=== PATIENT | female | born 1955 | race Caucasian/White ===

== ENCOUNTER → 2016-07-11 | Outpatient (CLI) | payer MEDICAID ==
[2016-03-13 13:01] VITALS: BP 115/64
--- NOTE | 2016-07-11 16:37 | RAD ---
HISTORY: Congestion Study: Two view chest Comparison: 03/13/2016 Findings: Exam is limited due to patient immobility. Stable right-sided port terminating in the SVC. There are chronic sternotomy changes present. Lung volumes are reduced without definite airspace disease, pne umothorax or pleural effusion. Stable mildly enlarged cardiac silhouette. The soft tissues are unre markable. IMPRESSION: 1. No acute cardiopulmonary abnormality. Reported By:
== END ==
LOC: RAD 15:14
PROVIDERS: ATTEND Obstetrics & Gynecology Obstetrics
DX: R09.89 Other specified symptoms and signs involving the circulatory and respiratory systems (principal)
CPT/HCPCS: 71020

== ENCOUNTER → 2016-12-25 | Outpatient (CLI) | payer MEDICAID ==
[2016-03-13 13:01] VITALS: BP 115/64
[2016-12-25 17:01] LABS: BILIRUBIN,URINE NEGATIVE (NEGATIVE); BLOOD/HEMOGLOBIN,URINE 4+ (NEGATIVE); GLUCOSE, URINE 2+ (NEGATIVE); KETONES,URINE NEGATIVE (NEGATIVE); LEUKOCYTE ESTERASE ,URINE 2+ (NEGATIVE); NITRITES,URINE POSITIVE (NEGATIVE); PH,URINE 6.5 (5.0 - 8.0); PROTEIN,URINE 1+ (NEGATIVE); UROBILINOGEN,URINE NORMAL (NORMAL)
[2016-12-25 17:10] LABS: APPEARANCE,URINE CLOUDY (CLEAR); BACTERIA,URINE 3+ /HPF (NEGATIVE); COLOR,URINE PALE YELLOW (YELLOW); SQUAMOUS EPITHELIAL CELL,UR RARE /HPF (NEGATIVE)
--- NOTE | 2016-12-26 15:11 | VAS ---
Ultrasound right lower extremity arterial Doppler Indication: Recurrent wound on the right leg. Technique: Dynamic grayscale, color and spectral Doppler imaging through the right lower extremity ar teries. Findings: Measurements listed below are in cm/sec. Waveforms are triphasic unless otherwise noted. SPRING CLIPPER: 76 SFA prox: 150 SFA mid: 155 SFA distal: 119 Popliteal prox: 68 Popliteal distal: 84 MEDICAL NUMERICAL CONTROL OPERATOR prox: 73 MEDICAL NUMERICAL CONTROL OPERATOR mid: 115 MEDICAL NUMERICAL CONTROL OPERATOR distal: 83 biphasic EMERY prox: 107 EMERY mid: 61 EMERY dist: 60 biphasic Vascular calcifications noted. Impression: 1. No occlusion, dissection or aneurysm. 2. Vascular plaque with mildly biphasic waveforms in the distal the anterior and posterior tibial art eries at the level of the ankle. 3. No high-grade visual stenosis. Consider angiography followup as needed. Reported By:
== END | disposition home or self-care (01) ==
LOC: RAD 13:54
PROVIDERS: ATTEND Internal Medicine
DX: I10 Essential (primary) hypertension (principal); S81.801A Unspecified open wound, right lower leg, initial encounter; X58.XXXA Exposure to other specified factors, initial encounter; B96.29 Other Escherichia coli [E. coli] as the cause of diseases classified elsewhere
CPT/HCPCS: 81001; 87086; 87088; 87186; 93925

== ENCOUNTER 2017-02-03 14:02 | Observation (INO) | payer MEDICAID ==
[2017-02-03] MEDS ORDERED: NS 1000 ML 1,000 ML IV SCH (16:00)
[2017-02-03 16:47] VITALS: BMI 32.4
[2017-02-03] MEDS: PROTONIX INJ 40 MG VIAL IVP NR ×2 (16:59→17:03)
[2017-02-03 17:08] LABS: BASOPHILS % (AUTO) 0.5 % (0.2-1.0); EOSINOPHILS # (AUTO) 0.2 x10^3/uL (0.0-0.2); EOSINOPHILS % (AUTO) 3.7 % (0.9-2.9); HEMOGLOBIN 10.2 g/dL (12.0-16.0); LYMPHOCYTES # (AUTO) 1.9 X10^3/uL (1.3-2.9); LYMPHOCYTES % (AUTO) 33.9 % (21.0-51.0); MEAN CORPUSCULAR HEMOGLOBIN 29.3 pg (27.0-34.0); MEAN CORPUSCULAR HGB CONC 33.8 g/dL (33.0-35.0); MEAN CORPUSCULAR VOLUME 86.7 fL (80.0-100.0); MONOCYTES # (AUTO) 0.3 x10^3/uL (0.3-0.8); MONOCYTES % (AUTO) 5.6 % (0.0-13.0); NEUTROPHILS # (AUTO) 3.1 x10^3/uL (2.2-4.8); NEUTROPHILS % (AUTO) 56.3 % (42.0-75.0); PLATELET COUNT 106 X10^3/uL (150.0-450.0); RED BLOOD COUNT 3.46 X10^6/uL (3.5-5.4); RED CELL DISTRIBUTION WIDTH 18.2 % (11.6-16.5); WHITE BLOOD COUNT 5.5 X10^3/uL (3.6-10.0)
[2017-02-03 17:27] LABS: BLOOD UREA NITROGEN 21 mg/dL (7-18); CALCIUM 8.9 mg/dL (8.5-10.1); CARBON DIOXIDE 28.1 mmol/L (21-32); CHLORIDE 107 mmol/L (98-107); COR NA(FOR HYPERGLY) 146 mmol/L (136-145); SODIUM 144 mmol/L (136-145); TROPONIN I < 0.02 ng/mL (0-1.5); eGFR BLACK RACES > 60 (>60); eGFR NON BLACK RACES 59 (>60)
[2017-02-03 17:31] LABS: ALANINE AMINOTRANSFERASE 20 Units/L (12-78); ALKALINE PHOSPHATASE 57 Units/L (46-116); ASPARTATE AMINO TRANSFERASE 21 Units/L (15-37); CKMB % 1.8 % (<4); COR CA(FOR HYPOALB) 9.7 mg/dL (8.5-10.1); CREATINE KINASE 55 Units/L (26-192); CREATINE KINASE MB < 1.0 ng/mL (0-4.0)
[2017-02-03] MEDS ORDERED: HumuLIN R SUBCUT PRN (17:42)
[2017-02-03] MEDS ORDERED: NS 100 ML IV 100 ML IV ONE (18:01)
[2017-02-03] MEDS ORDERED: ULTRAM PO PRN (18:17)
--- NOTE | 2017-02-03 18:35 | CT ---
History: Mental status and new onset of left-sided weakness Study: CT head without contrast. Sagittal and coronal reformations were provided. Comparison: March 10, 2016 Findings: There is no significant change. The ventricles and sulci are mildly prominent for patient a ge without mass effect. There is severe patchy periventricular white matter low attenuation specially in the occipital lobes. There is no intracranial hemorrhage or mass or edema or subdural collection of fluid. The calvarium is intact. The paranasal sinuses are clear. Impression: 1. No acute intracranial disease 2. Unchanged atrophy and severe periventricular white matter low attenuation small-vessel disease Reported By:
[2017-02-03 19:51] LABS: BILIRUBIN,URINE NEGATIVE (NEGATIVE); BLOOD/HEMOGLOBIN,URINE 3+ (NEGATIVE); GLUCOSE, URINE NEGATIVE (NEGATIVE); KETONES,URINE NEGATIVE (NEGATIVE); LEUKOCYTE ESTERASE ,URINE 1+ (NEGATIVE); NITRITES,URINE NEGATIVE (NEGATIVE); PROTEIN,URINE 1+ (NEGATIVE); UROBILINOGEN,URINE 1+ (NORMAL)
[2017-02-03 19:54] LABS: APPEARANCE,URINE HAZY (CLEAR); BACTERIA,URINE 4+ /HPF (NEGATIVE); COLOR,URINE YELLOW (YELLOW); RBC,URINE 0-2 /HPF (NEGATIVE); SQUAMOUS EPITHELIAL CELL,UR RARE /HPF (NEGATIVE)
[2017-02-03] MEDS: LOPRESSOR TAB 25 MG PO SCH ×2 (20:19→20:22)
[2017-02-03] MEDS: PLAVIX PO SCH (20:19)
[2017-02-03] MEDS: SNACK - Diabetic Appropriate PO SCH (20:19)
[2017-02-03] MEDS: MAG-OX TAB PO SCH (20:20)
[2017-02-03] MEDS: LIPITOR TAB 20 MG PO SCH (20:20)
[2017-02-04] MEDS ORDERED: DIFLUCAN 200 MG IV PREMIX* 200 MG/100 ML BAG IV ONE (06:13)
[2017-02-04] MEDS: DIFLUCAN 200 MG IV PREMIX* 200 MG/100 ML BAG IV SCH (06:20)
[2017-02-04] MEDS: HumuLIN R SC PRN ×3 (06:27→16:19)
[2017-02-04 06:30] LABS: BASOPHILS % (AUTO) 0.7 % (0.2-1.0); EOSINOPHILS # (AUTO) 0.2 x10^3/uL (0.0-0.2); HEMATOCRIT 30.2 % (36.0-47.0); HEMOGLOBIN 10.4 g/dL (12.0-16.0); LYMPHOCYTES # (AUTO) 1.7 X10^3/uL (1.3-2.9); LYMPHOCYTES % (AUTO) 35.3 % (21.0-51.0); MEAN CORPUSCULAR HEMOGLOBIN 29.7 pg (27.0-34.0); MEAN CORPUSCULAR HGB CONC 34.4 g/dL (33.0-35.0); MEAN CORPUSCULAR VOLUME 86.4 fL (80.0-100.0); MONOCYTES # (AUTO) 0.3 x10^3/uL (0.3-0.8); MONOCYTES % (AUTO) 5.7 % (0.0-13.0); NEUTROPHILS # (AUTO) 2.6 x10^3/uL (2.2-4.8); NEUTROPHILS % (AUTO) 53.3 % (42.0-75.0); PLATELET COUNT 104 X10^3/uL (150.0-450.0); RED CELL DISTRIBUTION WIDTH 18.2 % (11.6-16.5); WHITE BLOOD COUNT 4.8 X10^3/uL (3.6-10.0)
[2017-02-04 06:50] LABS: ALANINE AMINOTRANSFERASE 20 Units/L (12-78); ALBUMIN 3.1 g/dL (3.4-5.0); ALKALINE PHOSPHATASE 59 Units/L (46-116); ASPARTATE AMINO TRANSFERASE 24 Units/L (15-37); BLOOD UREA NITROGEN 17 mg/dL (7-18); CALCIUM 9.2 mg/dL (8.5-10.1); CARBON DIOXIDE 29.5 mmol/L (21-32); CHLORIDE 106 mmol/L (98-107); COR CA(FOR HYPOALB) 9.9 mg/dL (8.5-10.1); COR NA(FOR HYPERGLY) 145 mmol/L (136-145); CREATININE 0.83 mg/dL (0.55-1.02); SODIUM 144 mmol/L (136-145); TOTAL PROTEIN 7.1 g/dL (6.4-8.2); eGFR BLACK RACES > 60 (>60); eGFR NON BLACK RACES > 60 (>60)
[2017-02-04] MEDS: COZAAR PO SCH (08:12)
[2017-02-04] MEDS: MAG-OX TAB PO SCH ×2 (08:13→20:32)
[2017-02-04] MEDS: ACTOS PO SCH (08:13)
[2017-02-04] MEDS: PLAVIX PO SCH (08:13)
[2017-02-04] MEDS: ASPIRIN EC 81 MG PO SCH (08:13)
[2017-02-04] MEDS: VITAMIN C PO SCH (08:13)
[2017-02-04] MEDS: PriLOSEC PO SCH (08:14)
[2017-02-04] MEDS: LOPRESSOR TAB 25 MG PO SCH ×2 (08:14→20:32)
[2017-02-04] MEDS: CYMBALTA PO SCH (08:17)
[2017-02-04] MEDS: ZINC CITRATE PO SCH (08:18)
[2017-02-04] MEDS: [UNRECOGNIZED DRUG - OTHER] PO SCH (08:18)
[2017-02-04] MEDS ORDERED: ASPIRIN EC 81 MG PO SCH (09:00)
[2017-02-04] MEDS: NORVASC TAB 5 MG PO SCH (09:25)
[2017-02-04] MEDS ORDERED: APRESOLINE INJ 20 MG VIAL IVP PRN (09:36)
--- NOTE | 2017-02-04 13:49 | DR.H&P ---
H&P - History & Physical for Day of: H&P Date: 02/03/17 - Chief Complaint Chief Complaint: LEFT SIDE FACIAL WEAKNESS - Allergies Allergies/Adverse Reactions: Allergies Allergy/AdvReac Type Severity Reaction Status Date / Time No Known Drug Allergies Allergy Verified 02/03/17 15:43 - History of Present Illness History of Present Illness: 62 WF DIRECT ADMIT FROM [facility] AFTER NEW ONSET. LEFT SIDE WEAKNESS. PT HAD HX OLD CVA AND LEFT AKA. PT ALSO HYPERTENSIVE AND CO HEADACHE. PT ADMITTED FOR STAT CT HEAD, BP MONITORING CARDIAC MONITORING AND PROFILE. RESUME HOME MEDS - Past Medical History Past Medical History: Anxiety, Arthritis, CHF, COPD, Coronary Artery Disease, CVA, Diabetes, Hypertension, [place] Additional Medical History: TIA, Pneumonia, Muscle Weakness - Past Surgical History Surgical History: CABG/Valve Surgery, Cholecystectomy, Ortho Surgery Additional Surgical History: Left BKA, Digits removed from Right foot - Family History Family Medical History: Diabetes Mellitus, Hypertension - Social History Does patient currently use any type of tobacco product: No Type of Tobacco Use: None Alcohol Use: None Drug Use: None - Medications Home Medications: Ascorbic Acid [Vitamin C] 500 mg PO DAILY 02/03/17 [History Confirmed 02/03/17] Insulin R (Regular) [Humulin R] 1 unit SC ACHS PRN MDD sliding scale 02/03/17 [ History Confirmed 02/03/17] Losartan Potassium 25 mg PO DAILY 02/03/17 [History Confirmed 02/03/17] Omeprazole 20 mg PO DAILY 02/03/17 [History Confirmed 02/03/17] Tramadol HCl [ULTRAM 50 MG *] 50 mg PO BID PRN 02/03/17 [History Confirmed 02/03] Zinc Citrate/Phytase [Zytaze Capsule] 1 each PO DAILY 02/03/17 [History Confirmed 02/03/17] - Review of Systems Constitutional: Weakness Eyes: No Symptoms Reported ENT: No Symptoms Reported Respiratory: No Symptoms Reported Cardiovascular: No Symptoms Reported Gastrointestinal: No Symptoms Reported Genitourinary: No Symptoms Reported Musculoskeletal: Back Pain, Neck Pain Skin: No Symptoms Reported Neurological: Weakness, Numbness (LEFT FACE) - Physical Exam Vital Signs: Temperature 97.3 F Pulse Rate [Apical] 60 Pulse Rate [Bilateral Radial] 59 Respiratory Rate 27 Blood Pressure [Right Arm] 129/65 Blood Pressure [Left Arm] 178/79 Blood Pressure 115/64 O2 Sat by Pulse Oximetry 95 Oriented: Normal Eyes: Normal Ear: Normal Nose: Normal Throat: Normal Respiratory: RLL Diminished, LLL Diminished Cardiovascular: Normal : Normal Auscultation: Bowel Sounds: Normal Palpation: Normal Tenderness: Normal Skin: Normal Musculoskeletal: Deformity (LEFT AKA, ), Motor Deficit (LUE WEAKNESS, LEFT FACIAL DROOP), Sensory Deficit Psychiatric: Anxiety Affect: Anxious Speech Pattern: Clear, Appropriate - Assessment/Plan (1) Acute left-sided weakness Status: Acute Plan: ADMIT ICU, R/O ACUTE CVA. RESUME HOME MEDS, BP CONTROL. CARDIAC MONITORING (2) CAD (coronary artery disease) Status: Chronic (3) CHF (congestive heart failure) Status: Chronic (4) COPD (chronic obstructive pulmonary disease) Qualifiers: COPD type: COPD with acute lower respiratory infection Qualified Code(s): J44.0 - Chronic obstructive pulmonary disease with acute lower respiratory infection Status: Chronic (5) Cerebrovascular disease Status: Chronic (6) Diabetes mellitus, type 2 Qualifiers: Diabetes mellitus complication status: with hyperglycemia Diabetes mellitus skilled nursing insulin use: without skilled nursing use Qualified Code(s): E11.65 - Type 2 diabetes mellitus with hyperglycemia Status: Chronic
--- NOTE | 2017-02-04 18:53 | CT ---
CT ANGIOGRAPHY NECK CLINICAL HISTORY: 62-year-old female with new onset left-sided weakness with history of hypertension, diabetes and old stroke. COMPARISON: None. TECHNIQUE: Multiple axial CT images were obtained from the skull base to the aortic arch prior to an d following the administration of IV contrast and reformatted in the sagittal and coronal planes. Rot ating 3D and MIP reformats are submitted. FINDINGS: Beam hardening and streak artifact from dental hardware precludes complete evaluation of the distal r ight ICA. Approximate 50% narrowing of the proximal right ICA secondary to calcified and noncalcified atheroscl erotic plaque. No other area of high-grade stenosis or evidence of dissection within the bilateral in ternal carotid arteries or vertebral arteries. Non flow limiting calcific and noncalcific atherosclerotic plaque within the distal vertebral arterie s and cavernous segments of the internal carotid arteries bilaterally. The take-off of the great vessels is conventional. The origins of the common carotid and vertebral ar teries are patent. Left dominant vertebral artery. The vertebral arteries terminate in a normal appea ring basilar artery. Left carotid bifurcation is unremarkable. The soft tissues of the neck are within normal limits. Biapical emphysematous change of the lungs. Mi ld multilevel disc degeneration and spondyloarthropathy most severe at C5-C6 with uncovertebral joint hypertrophy producing mild bilateral neural foraminal stenosis. IMPRESSION: 1. Focal stenosis of approximately 50% of the proximal right ICA secondary to calcified and noncalcif ied atherosclerotic plaque. 2. No other region of focal high-grade stenosis, dissection, aneurysm, complete occlusion or vascular malformation. Reported By:
[2017-02-04] MEDS: NORCO 5/325 MG TAB PO PRN (20:32)
[2017-02-04] MEDS: LIPITOR TAB 20 MG PO SCH (20:32)
[2017-02-04] MEDS: SNACK - Diabetic Appropriate PO SCH (20:33)
[2017-02-05] MEDS: NORCO 5/325 MG TAB PO PRN (04:26)
[2017-02-05 05:55] LABS: BASOPHILS % (AUTO) 0.6 % (0.2-1.0); EOSINOPHILS # (AUTO) 0.2 x10^3/uL (0.0-0.2); EOSINOPHILS % (AUTO) 3.4 % (0.9-2.9); HEMATOCRIT 31.3 % (36.0-47.0); HEMOGLOBIN 10.9 g/dL (12.0-16.0); LYMPHOCYTES # (AUTO) 1.9 X10^3/uL (1.3-2.9); LYMPHOCYTES % (AUTO) 37.6 % (21.0-51.0); MEAN CORPUSCULAR HGB CONC 34.7 g/dL (33.0-35.0); MEAN CORPUSCULAR VOLUME 86.5 fL (80.0-100.0); MEAN PLATELET VOLUME 7.8 fL (7.4-11.0); MONOCYTES # (AUTO) 0.3 x10^3/uL (0.3-0.8); MONOCYTES % (AUTO) 6.5 % (0.0-13.0); NEUTROPHILS # (AUTO) 2.6 x10^3/uL (2.2-4.8); NEUTROPHILS % (AUTO) 51.9 % (42.0-75.0); PLATELET COUNT 115 X10^3/uL (150.0-450.0); RED BLOOD COUNT 3.62 X10^6/uL (3.5-5.4); RED CELL DISTRIBUTION WIDTH 18.1 % (11.6-16.5); WHITE BLOOD COUNT 5.1 X10^3/uL (3.6-10.0)
[2017-02-05 06:05] LABS: ALANINE AMINOTRANSFERASE 19 Units/L (12-78); ALBUMIN 3.1 g/dL (3.4-5.0); ALKALINE PHOSPHATASE 60 Units/L (46-116); ASPARTATE AMINO TRANSFERASE 23 Units/L (15-37); BLOOD UREA NITROGEN 18 mg/dL (7-18); CARBON DIOXIDE 29.3 mmol/L (21-32); CHLORIDE 107 mmol/L (98-107); COR CA(FOR HYPOALB) 9.7 mg/dL (8.5-10.1); COR NA(FOR HYPERGLY) 145 mmol/L (136-145); CREATININE 0.95 mg/dL (0.55-1.02); SODIUM 143 mmol/L (136-145); TOTAL PROTEIN 7.2 g/dL (6.4-8.2); eGFR BLACK RACES > 60 (>60); eGFR NON BLACK RACES > 60 (>60)
[2017-02-05] MEDS ORDERED: K-LYTE EFFERVESCENT PO PRN (06:52)
[2017-02-05] MEDS: K-RIDER 10 MEQ/NS 100 ML 10 MEQ/100 ML BAG IV PRN ×2 (07:04→08:39)
[2017-02-05] MEDS ORDERED: ROCEPHIN VIAL 1 GM 1 GM in NS 50 ML IV + SPIKE MINIBAG* 50 ML IV SCH (08:30)
[2017-02-05] MEDS: NORVASC TAB 5 MG PO SCH (08:37)
[2017-02-05] MEDS: DIFLUCAN 200 MG IV PREMIX* 200 MG/100 ML BAG IV SCH (08:37)
[2017-02-05] MEDS: MAG-OX TAB PO SCH (08:37)
[2017-02-05] MEDS: ASPIRIN EC 81 MG PO SCH (08:38)
[2017-02-05] MEDS: COZAAR PO SCH (08:38)
[2017-02-05] MEDS: PriLOSEC PO SCH (08:38)
[2017-02-05] MEDS: VITAMIN C PO SCH (08:38)
[2017-02-05] MEDS: CYMBALTA PO SCH (08:38)
[2017-02-05] MEDS: LOPRESSOR TAB 25 MG PO SCH (08:38)
[2017-02-05] MEDS: ACTOS PO SCH (08:39)
[2017-02-05] MEDS: PLAVIX PO SCH (08:39)
[2017-02-05] MEDS ORDERED: ROCEPHIN VIAL 1 GM 1 GM in NS 50 ML IV 50 ML IV SCH (09:00)
[2017-02-05 10:40] VITALS: BP 156/96
[2017-02-05] MEDS: ZINC CITRATE PO SCH (10:49)
[2017-02-05] MEDS: [UNRECOGNIZED DRUG - OTHER] PO SCH (10:49)
[2017-02-05] MEDS: HumuLIN R SC PRN (11:53)
== END 2017-02-05 11:50 ==
LOC: ICU 14:02
PROVIDERS: ADMIT Internal Medicine; ATTEND Internal Medicine
DX: G45.8 Other transient cerebral ischemic attacks and related syndromes (principal); R29.810 Facial weakness; I50.9 Heart failure, unspecified; R94.31 Abnormal electrocardiogram [ECG] [EKG]; R51 Headache; I10 Essential (primary) hypertension; B96.29 Other Escherichia coli [E. coli] as the cause of diseases classified elsewhere; F41.8 Other specified anxiety disorders; M13.89 Other specified arthritis, multiple sites; J44.0 Chronic obstructive pulmonary disease with (acute) lower respiratory infection; I25.10 Atherosclerotic heart disease of native coronary artery without angina pectoris; E11.65 Type 2 diabetes mellitus with hyperglycemia
CPT/HCPCS: 36415; 70450; 70498; 80053; 81001; 82550; 82553; 83735; 84484; 85025; 87086; 87088; 87186; 93005; 93010; A4222; C9113; G0378; J0360; J0696; J1450; J1815; J3480

== ENCOUNTER 2017-07-13 02:32 | Emergency (ER) | payer MEDICAID ==
[2017-07-13 02:43] VITALS: BMI 32.5
[2017-07-13 02:58] VITALS: BP 179/92
[2017-07-13] MEDS ORDERED: CATAPRES TAB 0.2 MG PO ONE (03:07)
--- NOTE | 2017-07-13 03:12 | DR.GENAD ---
HPI - PCP Primary Care Physician: Trevor - Complaint/Symptoms Chief Complaint Doctors Comments: Patient brought from [facility] for evaluation of TIA and left sided weakness and lethargy. Patient alert and states she has had weakness on her last side for the past year since she had her last stroke. she denies headache, dizziness, chest pain or SOB. States she is doing fine and is not hurting anywhere. States she do not know why she is here in the emergency room. she denies tobacco or alcohol usage. She denies hematuria, diarrhea or meg. She denies cold, cough or any recent trauma. Chief Complaint:: Seizure like activity Self Treatment fo Chief Complaint: None - Nurses notes reviewed Nurses Notes Review: Yes - Source History Provided: Patient, Group Home - Mode of Arrival Mode of Arrival: Wheelchair - Timing Onset of Chief Complaint: 07/13/17 Came on: Gradually - Duration Duration: Constant How lon Duration: Hours - Location Location: left arm weakness - Severity Severity: Mild - Modifying Factors Worsens:: nothing Improves:: nothing PMH - PMH Past Medical History: Yes Past Medical History: Diabetes Past Surgical History: Yes Surgical History: Other Past Surgical History Comment: Amputee - Family History History of Family Medical Conditions: No Family Medical History: Diabetes Mellitus, Hypertension - Social History Does patient currently use any type of tobacco product: No Have you used tobacco products in the last 12 months: No Type of Tobacco Use: None Does any household member use tobacco: No Do you use any recreational Drugs:: No - infectious screening In the last 2 months have you had wt loss of >10#?: NO Have you had fever, night sweats or hemotysis?: No Have you traveled outside the country in the last 6 months?: No Isolation: Standard ROS - Review of Systems Constitutional: No Symptoms Reported, Weakness. negative: See HPI, Chills, Diaphoresis, Fever, Malaise, Irritable, Fatigue, Loss of Appetite, Other Eyes: No Symptoms Reported. negative: See HPI, Eye Pain, Blurred Vision, Tearing, Discharge, Photophobia, Diplopia, Other ENTM: No Symptoms Reported. negative: See HPI, Ear Pain, Ear Discharge, Pulling on Ears, Hearing Loss, Nose Pain, Nose Discharge, Epistaxis, Nose Congestion, Mouth Pain, Mouth Swelling, Loose Teeth, Drooling, Throat Pain, Throat Swelling, Ear Foreign Body Respiratoy: No Symptoms Reported. negative: See HPI, Productive Cough, Non- Productive Cough, Moist Cough, Dry Cough, Hacking Cough, Barking Cough, Brassy Cough, Orthopnea, Short of Breath, Stridor, Wheezing, Hemoptysis, Other Cardiovascular: No Symptoms Reported. negative: See HPI, Chest Pain, Edema, Palpitations, Syncope, Cyanosis, Skin Mottling, Other Gastrointestinal/Abdominal: No Symptoms Reported. negative: See HPI, Abdominal Pain, Constipation, Diarrhea, Nausea, Vomiting, Food Intolerance, Other Genitourinary: No Symptoms Reported Neurological: No Symptoms Reported, Problems Walking (left AKA) Musculoskeletal: No Symptoms Reported, Left (left side weakness) Integumentary: No Symptoms Reported Hematologic/Lymphatic: No Symptoms Reported Endocrine: No Symptoms Reported Psychiatric: No Symptoms Reported. negative: See HPI, Anxiety, Depression, Hallucinations, Excessive crying, Suicidal, Other PE - Vital Signs Vitals: Temperature 98.8 F Pulse Rate 79 Respiratory Rate 21 Blood Pressure [Right Arm] 129/65 Blood Pressure [Left Arm] 179/92 Blood Pressure 179/82 O2 Sat by Pulse Oximetry 97 - General Limitations: No Limitations General Appearance: Alert, In No Apparent Distress - Head Head Exam: Normal Inspection, Atraumatic, Normocephalic - Eyes Eye exam: Normal Appearance, PERRL, EOMI. negative: Scleral Icterus, Conjunctival Injection, Nystagmus, Miosis, Mydrasis, Periorbital Swelling, Periorbital Tenderness, Other - ENT ENT Exam: Normal Exam, Normal Oropharynx, Normal External Ear Exam, Mucous Membranes Moist, TM's Normal Bilaterally External Ear Exam: Normal External Inspection TM/Canal Exam: Bilateral Normal Nose Exam: Normal Nose Exam Mouth Exam: Normal Inspection Throat Exam: Normal Inspection - Neck Neck Exam: Normal Inspection, Full ROM, Trachea Midline - Chest Chest Inspection: Normal Inspection, Symmetric Chest Wall Rise - Respiratory Respiratory Exam: Normal Lung Sounds Bilat Respiratory Exam: Bilateral Clear to Auscultation - Cardiovascular Cardiovascular Exam: Regular Rate, Normal Rhythm - Abdominal Exam Abdominal Exam: Normal Inspection, Normal Bowel Sounds, Soft Abdominal Tenderness: negative: RUQ, RLQ, LUQ, LLQ, Epigastrium, Suprapubic, Diffuse, Mild, Moderate, Severe, Other - Extremities Extremities Exam: Normal Inspection, Full ROM, Normal Capillary Refill. negative: Tenderness, Joint Swelling (left AKA; right contracture) - Back Back Exam: Normal Inspection, Full ROM - Neurologic Neurological Exam: Alert, Oriented X3, CN II-XII Intact, Reflexes Normal. negative: Normal Gait (gait not tested) - Psychiatric Psychiatric Exam: Normal Affect, Normal Mood - Skin Skin Exam: Warm, Dry, Intact, Normal Color ROR - Labs Reviewed Laboratory Results Reviewed?: Yes (All labs and x-ray results reviewed and discussed with patient) Result Diagrams: 07/13/17 04:00 07/13/17 04:00 Laboratory: WBC 10.7 X10^3/uL (3.6-10.0) H 07/13/17 04:00 RBC 4.73 X10^6/uL (3.5-5.4) 07/13/17 04:00 Hgb 14.3 g/dL (12.0-16.0) 07/13/17 04:00 Hct 41.4 % (36.0-47.0) 07/13/17 04:00 MCV 87.5 fL (80.0-100.0) 07/13/17 04:00 MCH 30.2 pg (27.0-34.0) 07/13/17 04:00 MCHC 34.5 g/dL (33.0-35.0) 07/13/17 04:00 RDW 14.5 % (11.6-16.5) 07/13/17 04:00 Plt Count 137 X10^3/uL (150.0-450.0) L 07/13/17 04:00 Plt Count Comment Adequate (ADEQUATE) 07/13/17 04:00 MPV 9.1 fL (7.4-11.0) 07/13/17 04:00 Neut % (Auto) 60.9 % (42.0-75.0) 07/13/17 04:00 Lymph % (Auto) 31.2 % (21.0-51.0) 07/13/17 04:00 Sanders % (Auto) 4.7 % (0.0-13.0) 07/13/17 04:00 Eos % (Auto) 2.3 % (0.9-2.9) 07/13/17 04:00 Baso % (Auto) 0.9 % (0.2-1.0) 07/13/17 04:00 Neut # (Auto) 6.5 x10^3/uL (2.2-4.8) H 07/13/17 04:00 Lymph # (Auto) 3.3 X10^3/uL (1.3-2.9) H 07/13/17 04:00 Sanders # (Auto) 0.5 x10^3/uL (0.3-0.8) 07/13/17 04:00 Eos # (Auto) 0.2 x10^3/uL (0.0-0.2) 07/13/17 04:00 Baso # (Auto) 0.1 X10^3/uL (0.0-0.1) 07/13/17 04:00 Absolute Nucleated RBC 0.2 /100WBC 07/13/17 04:00 Plt Clumps, EDTA Few 07/13/17 04:00 Plt Morphology Comment Normal (NORMAL) 07/13/17 04:00 RBC Morphology Normal (NORMAL) 07/13/17 04:00 INR Target Range - 07/13/17 04:50 INR 1.00 (0.8-1.3) 07/13/17 04:50 APTT 29.1 SECONDS (22.9-36.5) 07/13/17 04:50 PTT Comment - 07/13/17 04:50 Sodium 136 mmol/L (136-145) 07/13/17 04:00 Corrected Sodium 140 mmol/L (136-145) 07/13/17 04:00 Potassium 4.7 mmol/L (3.5-5.1) 07/13/17 04:00 Chloride 98 mmol/L (98-107) 07/13/17 04:00 Carbon Dioxide 24.8 mmol/L (21-32) 07/13/17 04:00 BUN 24 mg/dL (7-18) H 07/13/17 04:00 Creatinine 1.05 mg/dL (0.55-1.02) H 07/13/17 04:00 Est GFR (MDRD) Af Amer > 60 (>60) 07/13/17 04:00 Est GFR (MDRD) Non-Af 56 (>60) L 07/13/17 04:00 Glucose 269 mg/dL (65-99) H 07/13/17 04:00 Calcium 9.6 mg/dL (8.5-10.1) 07/13/17 04:00 Corrected Calcium TNP 07/13/17 04:00 Magnesium 1.6 mg/dL (1.7-2.9) L 07/13/17 04:00 Total Bilirubin 0.40 mg/dL (0.2-1.0) 07/13/17 04:00 AST 24 Units/L (15-37) 07/13/17 04:00 ALT 31 Units/L (12-78) 07/13/17 04:00 Alkaline Phosphatase 89 Units/L (46-116) 07/13/17 04:00 Creatine Kinase 83 Units/L (26-192) 07/13/17 04:00 CK-MB (CK-2) 1.3 ng/mL (0-4.0) 07/13/17 04:00 CK/CKMB % Calc 1.6 % (<4) 07/13/17 04:00 Troponin I < 0.02 ng/mL (0-1.5) 07/13/17 04:00 Total Protein 9.3 g/dL (6.4-8.2) H 07/13/17 04:00 Albumin 3.8 g/dL (3.4-5.0) 07/13/17 04:00 Globulin 5.5 g/dL (2.5-4.5) H 07/13/17 04:00 Albumin/Globulin Ratio 0.7 Ratio (1.1-2.1) L 07/13/17 04:00 - XRAY XRAY Interpreted by: Radiologist (CT head: No acute intracranial abnormality. Stable advalnced micoangiopathic disease and chronic infarctions in left caudate nucleus and basal ganglia with chronic infarct posterior bilateral parietal lobes w/encephalomalacia.) XRAY Findings: CXR: no acute cardiopulmonary changes - EKG Rate: 75 [place]: Normal Rhythm: NSR Block: None Hypertrophy: RVH ST: Old, Inf, Infarct - Diagnosis Discharge Problem: Altered awareness, transient, History of CVA (cerebrovascular accident), Multiple CVA, old left caudate nucleus , Multiple old cerebral infarcts with hemiparesis, Diabetes mellitus, type 2, Cerebral atrophy, Hypergammaglobulinemia , unspecified - Discharge Plan Disposition: 01 HOME, SELF-CARE Condition: Stable - Follow ups/Referrals Follow ups/Referrals: ROD SWARTZ [Primary Care Provider] - 3 days - Instructions Instructions: Type 2 Diabetes Mellitus, Diagnosis, Adult, Transient Ischemic Attack, [id number], Cerebral Atrophy, Ischemic Stroke, [id number], Hypertension, [id number], Total Protein and Albumin to Globulin Ratio
[2017-07-13] MEDS ORDERED: CATAPRES TAB 0.2 MG ONE (03:24)
[2017-07-13 04:19] LABS: BASOPHILS # (AUTO) 0.1 X10^3/uL (0.0-0.1); BASOPHILS % (AUTO) 0.9 % (0.2-1.0); EOSINOPHILS # (AUTO) 0.2 x10^3/uL (0.0-0.2); EOSINOPHILS % (AUTO) 2.3 % (0.9-2.9); HEMATOCRIT 41.4 % (36.0-47.0); HEMOGLOBIN 14.3 g/dL (12.0-16.0); LYMPHOCYTES # (AUTO) 3.3 X10^3/uL (1.3-2.9); LYMPHOCYTES % (AUTO) 31.2 % (21.0-51.0); MEAN CORPUSCULAR HEMOGLOBIN 30.2 pg (27.0-34.0); MEAN CORPUSCULAR HGB CONC 34.5 g/dL (33.0-35.0); MEAN CORPUSCULAR VOLUME 87.5 fL (80.0-100.0); MEAN PLATELET VOLUME 9.1 fL (7.4-11.0); MONOCYTES # (AUTO) 0.5 x10^3/uL (0.3-0.8); MONOCYTES % (AUTO) 4.7 % (0.0-13.0); NEUTROPHILS # (AUTO) 6.5 x10^3/uL (2.2-4.8); NEUTROPHILS % (AUTO) 60.9 % (42.0-75.0); PLATELET COUNT 137 X10^3/uL (150.0-450.0); RED BLOOD COUNT 4.73 X10^6/uL (3.5-5.4); RED CELL DISTRIBUTION WIDTH 14.5 % (11.6-16.5)
[2017-07-13 04:32] LABS: BLOOD UREA NITROGEN 24 mg/dL (7-18); CALCIUM 9.6 mg/dL (8.5-10.1); CARBON DIOXIDE 24.8 mmol/L (21-32); CHLORIDE 98 mmol/L (98-107); COR NA(FOR HYPERGLY) 140 mmol/L (136-145); CREATININE 1.05 mg/dL (0.55-1.02); SODIUM 136 mmol/L (136-145); TROPONIN I < 0.02 ng/mL (0-1.5); eGFR BLACK RACES > 60 (>60); eGFR NON BLACK RACES 56 (>60)
[2017-07-13 04:34] LABS: WHITE BLOOD COUNT 10.7 X10^3/uL (3.6-10.0)
[2017-07-13 04:35] LABS: PLATELET MORPHOLOGY COMMENT NORMAL (NORMAL)
--- NOTE | 2017-07-13 04:42 | CT ---
CT brain without contrast Indication: Altered mental status Technique: Helical CT images of the brain were obtained without IV contrast. Reformatted images in th e coronal and sagittal planes were also generated for review. Comparison: 02/03/2017 Findings: There is stable generalized cerebral atrophy. Remote left caudate nucleus and basal ganglia infarct and chronic infarcts of the posterior bilateral parietal lobes with associated encephalomala dahlia are also unchanged. Significant periventricular and subcortical white matter hypoattenuation, sug gestive for advanced microangiopathic disease also appears similar. Abdalla-white differentiation is oth erwise maintained. No definite acute infarct, intracranial hemorrhage, extra-axial collection, hydroc ephalus or mass is identified. The visualized paranasal sinuses and mastoid air cells are clear. The extracranial structures are grossly unremarkable. Impression: No acute intracranial abnormality. Stable atrophy, advanced microangiopathic disease and chronic infarctions, as above. Reported By:
[2017-07-13 04:47] LABS: ALANINE AMINOTRANSFERASE 31 Units/L (12-78); ALBUMIN 3.8 g/dL (3.4-5.0); ALKALINE PHOSPHATASE 89 Units/L (46-116); ASPARTATE AMINO TRANSFERASE 24 Units/L (15-37); CKMB % 1.6 % (<4); CREATINE KINASE 83 Units/L (26-192); CREATINE KINASE MB 1.3 ng/mL (0-4.0); MAGNESIUM 1.6 mg/dL (1.7-2.9); TOTAL PROTEIN 9.3 g/dL (6.4-8.2)
--- NOTE | 2017-07-13 05:25 | RAD ---
Chest, one view Indication: Chest pain Comparison: 03/07/2017 Findings: There is stable borderline cardiomegaly without congestive failure. Prior median sternotomy again noted. No focal consolidation or significant effusion is identified. Right-sided port catheter is well positioned without pneumothorax. Impression: No acute cardiopulmonary abnormality or significant change since prior. Reported By:
== END 2017-07-13 05:48 | disposition home or self-care (01) ==
LOC: ER 02:32
DX: R40.4 Transient alteration of awareness (principal); Z86.73 Personal history of transient ischemic attack (TIA), and cerebral infarction without residual deficits; I63.9 Cerebral infarction, unspecified; I69.351 Hemiplegia and hemiparesis following cerebral infarction affecting right dominant side; G31.89 Other specified degenerative diseases of nervous system; E11.9 Type 2 diabetes mellitus without complications; D89.2 Hypergammaglobulinemia, unspecified
CPT/HCPCS: 36415; 70450; 71045; 80053; 82550; 82553; 83735; 84484; 85025; 85610; 85730; 93005; 93010; 99283

== ENCOUNTER 2019-11-12 15:47 | Inpatient (IN) ==
[2019-11-12] MEDS ORDERED: MOTRIN TAB 800 MG PO ONE (16:17)
[2019-11-12 16:29] VITALS: BMI 26.6
--- NOTE | 2019-11-12 16:39 | RAD ---
Chest AP portableIndication: FeverComparison November 11, [id number] tip is over the SVC. There is cardiomegaly with sternotomy change. Patchy bibasilar opacities, most notably in the right lower lung noted. There is no pneumothorax or large effusion.IMPRESSIONCardiomegaly and patchy pulmonary opacities, particularly the right lung. Developing bacterial pneumonia likely. Follow-up to resolution to exclude underlying lesion. Viral pneumonitis is possibleElectronically signed by: YVETTE MUNOZ (Nov 12, 2019 16:38:06)
[2019-11-12] MEDS ORDERED: TYLENOL SUPP 650 MG PR ONE (16:53)
[2019-11-12 17:12] LABS: BASOPHILS % (AUTO) 0.2 % (0.2-1.0); HEMATOCRIT 43.7 % (36.0-47.0); HEMOGLOBIN 14.8 g/dL (12.0-16.0); LYMPHOCYTES # (AUTO) 2.5 X10^3/uL (1.3-2.9); LYMPHOCYTES % (AUTO) 19.9 % (21.0-51.0); MEAN CORPUSCULAR HEMOGLOBIN 31.2 pg (27.0-34.0); MEAN CORPUSCULAR HGB CONC 33.9 g/dL (33.0-35.0); MEAN CORPUSCULAR VOLUME 92.1 fL (80.0-100.0); MEAN PLATELET VOLUME 8.4 fL (7.4-11.0); MONOCYTES # (AUTO) 0.7 x10^3/uL (0.3-0.8); MONOCYTES % (AUTO) 5.3 % (0.0-13.0); NEUTROPHILS # (AUTO) 9.5 x10^3/uL (2.2-4.8); NEUTROPHILS % (AUTO) 74.6 % (42.0-75.0); PLATELET COUNT 159 X10^3/uL (150.0-450.0); RED BLOOD COUNT 4.74 X10^6/uL (3.5-5.4); RED CELL DISTRIBUTION WIDTH 14.6 % (11.6-16.5); WHITE BLOOD COUNT 12.8 X10^3/uL (3.6-10.0)
[2019-11-12] MEDS ORDERED: SOLU-Medrol 125 MG VIAL IVP ONE (17:17)
[2019-11-12 17:18] LABS: ALBUMIN 3.1 g/dL (3.4-5.0); CALCIUM 9.9 mg/dL (8.5-10.1); CARBON DIOXIDE 26.5 mmol/L (21-32); COR CA(FOR HYPOALB) 10.6 mg/dL (8.5-10.1); CREATININE 1.81 mg/dL (0.55-1.02); TOTAL PROTEIN 7.9 g/dL (6.4-8.2)
[2019-11-12] MEDS ORDERED: ZITHROMAX INJ 500 MG VIAL 500 MG in NS 250 ML IV 250 ML IV SCH (17:18)
[2019-11-12] MEDS ORDERED: REMDESIVIR (INVESTIGATIONAL DRUG GS-5734) 200 MG in NS 250 ML IV 250 ML IV SCH (17:18)
[2019-11-12] MEDS ORDERED: ROCEPHIN VIAL 1 GRAM 1 G in NS 100 ML IV + SPIKE MINIBAG* 100 ML IV ONE (17:19)
[2019-11-12] MEDS ORDERED: PEPCID TAB 20 MG PO ONE (17:20)
[2019-11-12] MEDS ORDERED: TRICOR TAB 160 MG PO ONE (17:21)
[2019-11-12] MEDS ORDERED: NS 250 ML IV 250 ML IV ONE ×2 (17:25→17:30)
[2019-11-12] MEDS ORDERED: ROCEPHIN VIAL 1 GRAM ONE (17:30)
[2019-11-12] MEDS ORDERED: SOLU-Medrol 125 MG VIAL ONE (17:30)
[2019-11-12] MEDS ORDERED: NS 1000 ML 1,000 ML ONE (17:30)
[2019-11-12] MEDS ORDERED: NS 50 ML IV + SPIKE MINIBAG* 50 ML IV ONE (17:31)
[2019-11-12 17:32] LABS: BILIRUBIN,URINE NEGATIVE (NEGATIVE); BLOOD/HEMOGLOBIN,URINE 2+ (NEGATIVE); GLUCOSE, URINE NEGATIVE (NEGATIVE); KETONES,URINE 1+ (NEGATIVE); LEUKOCYTE ESTERASE ,URINE 1+ (NEGATIVE); NITRITES,URINE NEGATIVE (NEGATIVE); PROTEIN,URINE 2+ (NEGATIVE); UROBILINOGEN,URINE NORMAL (NORMAL)
[2019-11-12 17:41] LABS: APPEARANCE,URINE HAZY (CLEAR); COLOR,URINE YELLOW (YELLOW); RBC,URINE 0-2 /HPF (0-3)
[2019-11-12 17:42] LABS: BACTERIA,URINE 3+ /HPF (NEGATIVE); HYALINE CASTS, URINE FEW /LPF (NEGATIVE); MUCUS,URINE FEW /HPF (NEGATIVE); SQUAMOUS EPITHELIAL CELL,UR NEGATIVE /HPF (NEGATIVE)
[2019-11-12] MEDS ORDERED: ROCEPHIN VIAL 1 GRAM 1 G in NS 100 ML IV + SPIKE MINIBAG* 100 ML IV SCH (18:03)
--- NOTE | 2019-11-12 18:09 | DR.FEVERAD ---
HPI Time seen Time Seen by Provider: 11/12/19 16:08 PMH PMH Past Medical History: Anxiety, COPD, Coronary Artery Disease, CVA, Dementia, Depression, Diabetes, Dyslipidemia, GERD, Hypertension, IA and Seizures Past Surgical History: Yes Surgical History: CABG/Valve Surgery and Cholecystectomy Family History Family Medical History: Diabetes Mellitus and Hypertension Social History Do you use any recreational Drugs:: No PE Vital Signs Vitals: Temperature 102.1 F Pulse Rate 116 Respiratory Rate 18 Blood Pressure [Right Arm] 129/65 Blood Pressure [Left Arm] 164/94 Blood Pressure 132/61 O2 Sat by Pulse Oximetry 92 ROR Labs Reviewed Result Diagrams: 11/12/19 16:55 11/12/19 16:55 Laboratory: WBC 12.8 X10^3/uL (3.6-10.0) H 11/12/19 16:55 RBC 4.74 X10^6/uL (3.5-5.4) 11/12/19 16:55 Hgb 14.8 g/dL (12.0-16.0) 11/12/19 16:55 Hct 43.7 % (36.0-47.0) 11/12/19 16:55 MCV 92.1 fL (80.0-100.0) 11/12/19 16:55 MCH 31.2 pg (27.0-34.0) 11/12/19 16:55 MCHC 33.9 g/dL (33.0-35.0) 11/12/19 16:55 RDW 14.6 % (11.6-16.5) 11/12/19 16:55 Plt Count 159 X10^3/uL (150.0-450.0) 11/12/19 16:55 MPV 8.4 fL (7.4-11.0) 11/12/19 16:55 Neut % (Auto) 74.6 % (42.0-75.0) 11/12/19 16:55 Lymph % (Auto) 19.9 % (21.0-51.0) L 11/12/19 16:55 [place] % (Auto) 5.3 % (0.0-13.0) 11/12/19 16:55 Eos % (Auto) 0.0 % (0.9-2.9) L 11/12/19 16:55 Baso % (Auto) 0.2 % (0.2-1.0) 11/12/19 16:55 Neut # (Auto) 9.5 x10^3/uL (2.2-4.8) H 11/12/19 16:55 Lymph # (Auto) 2.5 X10^3/uL (1.3-2.9) 11/12/19 16:55 [place] # (Auto) 0.7 x10^3/uL (0.3-0.8) 11/12/19 16:55 Eos # (Auto) 0.0 x10^3/uL (0.0-0.2) 11/12/19 16:55 Baso # (Auto) 0.0 X10^3/uL (0.0-0.1) 11/12/19 16:55 Absolute Nucleated RBC 0.1 /100WBC 11/12/19 16:55 Sodium 148 mmol/L (136-145) H 11/12/19 16:55 Corrected Sodium 151 mmol/L (136-145) H 11/12/19 16:55 Potassium 3.8 mmol/L (3.5-5.1) 11/12/19 16:55 Chloride 109 mmol/L (98-107) H 11/12/19 16:55 Carbon Dioxide 26.5 mmol/L (21-32) 11/12/19 16:55 BUN 58 mg/dL (7-18) H 11/12/19 16:55 Creatinine 1.81 mg/dL (0.55-1.02) H 11/12/19 16:55 Est GFR (MDRD) Af Amer 36 (>60) L 11/12/19 16:55 Est GFR (MDRD) Non-Af 30 (>60) L 11/12/19 16:55 Glucose 205 mg/dL (65-99) H 11/12/19 16:55 Calcium 9.9 mg/dL (8.5-10.1) 11/12/19 16:55 Corrected Calcium 10.6 mg/dL (8.5-10.1) H 11/12/19 16:55 Total Bilirubin 0.60 mg/dL (0.2-1.0) 11/12/19 16:55 AST 35 Units/L (15-37) 11/12/19 16:55 ALT 43 Units/L (12-78) 11/12/19 16:55 Alkaline Phosphatase 57 Units/L (46-116) 11/12/19 16:55 Total Protein 7.9 g/dL (6.4-8.2) 11/12/19 16:55 Albumin 3.1 g/dL (3.4-5.0) L 11/12/19 16:55 Globulin 4.8 g/dL (2.5-4.5) H 11/12/19 16:55 Albumin/Globulin Ratio 0.6 Ratio (1.1-2.1) L 11/12/19 16:55 Specimen Type Catherized urine 11/12/19 17:13 Urine Color Yellow (YELLOW) 11/12/19 17:13 Urine Appearance Hazy (CLEAR) 11/12/19 17:13 Urine pH 5.0 (5.0 - 8.0) 11/12/19 17:13 Ur Specific [place] 1.020 (1.000-1.030) 11/12/19 17:13 Urine Protein 2+ (NEGATIVE) 11/12/19 17:13 Urine Glucose (UA) Negative (NEGATIVE) 11/12/19 17:13 Urine Ketones 1+ (NEGATIVE) 11/12/19 17:13 Urine Occult Blood 2+ (NEGATIVE) 11/12/19 17:13 Urine Nitrite Negative (NEGATIVE) 11/12/19 17:13 Urine Bilirubin Negative (NEGATIVE) 11/12/19 17:13 Urine Urobilinogen Normal (NORMAL) 11/12/19 17:13 Ur Leukocyte Esterase 1+ (NEGATIVE) 11/12/19 17:13 Urine RBC 0-2 /HPF (0-3) 11/12/19 17:13 Urine WBC 5-10 /HPF (0-5) A 11/12/19 17:13 Ur Squamous Epith Cells Negative /HPF (NEGATIVE) 11/12/19 17:13 Urine Bacteria 3+ /HPF (NEGATIVE) 11/12/19 17:13 Hyaline Casts Few /LPF (NEGATIVE) 11/12/19 17:13 Urine Mucus Few /HPF (NEGATIVE) 11/12/19 17:13 Ur Culture Indicated? Yes/culture set up 11/12/19 17:13 XRAY XRAY Interpreted by: Radiologist X-ray Results: PNA EKG Rate: 117 [place]: Normal Rhythm: NSR Block: None Hypertrophy: LVH ST: Normal Opioid Opioid Risk Tool Age (Emre box if 16-45): No History of Preadolescent Sexual Abuse: No Total: 0 Total Score Risk Category: Low Risk Copyright: Omer FITZPATRICK predicting aberrant behaviors
[2019-11-12] MEDS: SNACK - Diabetic Appropriate PO SCH (21:00)
[2019-11-12] MEDS ORDERED: PEPCID TAB 20 MG PO SCH (21:00)
[2019-11-12] MEDS: PROVENTIL NEB TX 0.083% 2.5MG/ 3ML NEB SCH (21:40)
[2019-11-12] MEDS: PULMICORT NEB TX 0.5 MG NEB SCH (21:40)
[2019-11-12] MEDS ORDERED: TRICOR TAB 160 MG ONE (22:54)
[2019-11-12] MEDS: TYLENOL SUPP 650 MG PR PRN (22:55)
[2019-11-12] MEDS: LOVENOX INJ 30 MG SYR SC SCH (22:56)
[2019-11-12] MEDS: ZITHROMAX INJ 500 MG VIAL 500 MG in D5W 250 ML IV 250 ML IV SCH (22:57)
[2019-11-12] MEDS ORDERED: PHARMACY CONSULT LTC MEDICATIONS XX SCH (23:00)
[2019-11-12] MEDS ORDERED: LOPRESSOR TAB 25 MG PO ONE (23:36)
[2019-11-12] MEDS: SOLU-Medrol 40 MG VIAL IVP SCH (23:42)
[2019-11-13] MEDS ORDERED: LOPRESSOR INJ 5 MG AMP ONE (01:17)
[2019-11-13] MEDS ORDERED: VASOTEC INJ 2.5 MG VIAL ONE (01:17)
[2019-11-13 01:19] LABS: BILIRUBIN,URINE NEGATIVE (NEGATIVE); BLOOD/HEMOGLOBIN,URINE 2+ (NEGATIVE); GLUCOSE, URINE NEGATIVE (NEGATIVE); KETONES,URINE 2+ (NEGATIVE); LEUKOCYTE ESTERASE ,URINE 3+ (NEGATIVE); NITRITES,URINE NEGATIVE (NEGATIVE); PROTEIN,URINE 2+ (NEGATIVE); UROBILINOGEN,URINE NORMAL (NORMAL)
[2019-11-13] MEDS: LOPRESSOR INJ 5 MG AMP IVP PRN ×2 (01:19→10:39)
[2019-11-13] MEDS: VASOTEC INJ 2.5 MG VIAL IVP PRN (01:20)
[2019-11-13 01:29] LABS: APPEARANCE,URINE CLEAR (CLEAR); COLOR,URINE YELLOW (YELLOW)
[2019-11-13 01:30] LABS: BACTERIA,URINE 3+ /HPF (NEGATIVE); HYALINE CASTS, URINE FEW /LPF (NEGATIVE); RBC,URINE 0-2 /HPF (0-3); SQUAMOUS EPITHELIAL CELL,UR MODERATE /HPF (NEGATIVE)
[2019-11-13] MEDS: COZAAR PO SCH ×3 (01:45→11:57)
[2019-11-13] MEDS: TYLENOL SUPP 650 MG PR PRN (04:30)
[2019-11-13 05:35] LABS: BASOPHILS % (AUTO) 0.1 % (0.2-1.0); HEMATOCRIT 39.7 % (36.0-47.0); HEMOGLOBIN 13.5 g/dL (12.0-16.0); LYMPHOCYTES # (AUTO) 1.5 X10^3/uL (1.3-2.9); LYMPHOCYTES % (AUTO) 14.2 % (21.0-51.0); MEAN CORPUSCULAR HEMOGLOBIN 31.8 pg (27.0-34.0); MEAN CORPUSCULAR HGB CONC 33.9 g/dL (33.0-35.0); MEAN CORPUSCULAR VOLUME 93.6 fL (80.0-100.0); MEAN PLATELET VOLUME 9.2 fL (7.4-11.0); MONOCYTES # (AUTO) 0.3 x10^3/uL (0.3-0.8); MONOCYTES % (AUTO) 2.6 % (0.0-13.0); NEUTROPHILS # (AUTO) 8.5 x10^3/uL (2.2-4.8); NEUTROPHILS % (AUTO) 83.1 % (42.0-75.0); PLATELET COUNT 107 X10^3/uL (150.0-450.0); RED BLOOD COUNT 4.24 X10^6/uL (3.5-5.4); RED CELL DISTRIBUTION WIDTH 14.9 % (11.6-16.5); WHITE BLOOD COUNT 10.3 X10^3/uL (3.6-10.0)
[2019-11-13] MEDS: HumuLIN R SUBCUT PRN ×3 (05:48→16:54)
[2019-11-13] MEDS: SOLU-Medrol 40 MG VIAL IVP SCH (05:49)
[2019-11-13 05:50] LABS: ALBUMIN 2.8 g/dL (3.4-5.0); CALCIUM 8.8 mg/dL (8.5-10.1); CARBON DIOXIDE 24.9 mmol/L (21-32); COR CA(FOR HYPOALB) 9.8 mg/dL (8.5-10.1); CREATININE 1.56 mg/dL (0.55-1.02); TOTAL PROTEIN 7.3 g/dL (6.4-8.2)
[2019-11-13] MEDS: NS 1000 ML 1,000 ML IV SCH ×4 (07:21→19:13)
[2019-11-13] MEDS: PULMICORT NEB TX 0.5 MG NEB SCH ×2 (08:50→21:45)
[2019-11-13] MEDS: PROVENTIL NEB TX 0.083% 2.5MG/ 3ML NEB SCH ×2 (08:50→21:45)
[2019-11-13] MEDS ORDERED: REMDESIVIR (INVESTIGATIONAL DRUG GS-5734) 100 MG in NS 250 ML IV 250 ML IV SCH (09:00)
[2019-11-13] MEDS ORDERED: COZAAR PO SCH (09:00)
[2019-11-13] MEDS: LOPRESSOR TAB 25 MG PO SCH ×3 (09:58→21:20)
[2019-11-13] MEDS: PEPCID TAB 20 MG PO SCH ×3 (09:58→21:20)
[2019-11-13] MEDS: TRICOR TAB 160 MG PO SCH ×2 (10:08→11:57)
[2019-11-13] MEDS: LOVENOX INJ 30 MG SYR SC SCH (10:52)
[2019-11-13] MEDS ORDERED: OFIRMEV IV 1000 MG VIAL 1,000 MG/100 ML VIAL IV PRN (10:53)
[2019-11-13] MEDS ORDERED: OFIRMEV IV 1000 MG VIAL 1,000 MG/100 ML VIAL IV ONE (10:58)
[2019-11-13] MEDS: ZITHROMAX INJ 500 MG VIAL 500 MG in D5W 250 ML IV 250 ML IV SCH (11:25)
[2019-11-13] MEDS ORDERED: TYGACIL 50 MG VIAL 100 MG in NS 100 ML IV 100 ML IV ONE (12:28)
[2019-11-13] MEDS ORDERED: LR 1000 ML IV 1,000 ML IV ONE (12:48)
[2019-11-13] MEDS ORDERED: PULMICORT NEB TX 0.5 MG NEB ONE (20:16)
[2019-11-13] MEDS ORDERED: PROVENTIL NEB TX 0.083% 2.5MG/ 3ML ONE (20:16)
[2019-11-13] MEDS ORDERED: TYGACIL 50 MG VIAL IV ONE (20:46)
[2019-11-13] MEDS ORDERED: NS 100 ML IV + SPIKE MINIBAG* 100 ML IV ONE (20:46)
[2019-11-13] MEDS: TYGACIL 50 MG VIAL 50 MG in NS 100 ML IV 100 ML IV SCH (21:20)
[2019-11-14] MEDS: SNACK - Diabetic Appropriate PO SCH ×2 (00:06→20:00)
[2019-11-14] MEDS: NS 1000 ML 1,000 ML IV SCH ×3 (01:42→09:04)
[2019-11-14] MEDS: HumuLIN R SUBCUT PRN (06:26)
[2019-11-14 06:38] LABS: BASOPHILS % (AUTO) 0.1 % (0.2-1.0); HEMATOCRIT 36.9 % (36.0-47.0); HEMOGLOBIN 12.5 g/dL (12.0-16.0); LYMPHOCYTES # (AUTO) 1.8 X10^3/uL (1.3-2.9); LYMPHOCYTES % (AUTO) 21.1 % (21.0-51.0); MEAN CORPUSCULAR HEMOGLOBIN 31.7 pg (27.0-34.0); MEAN CORPUSCULAR HGB CONC 33.8 g/dL (33.0-35.0); MEAN CORPUSCULAR VOLUME 93.6 fL (80.0-100.0); MONOCYTES # (AUTO) 0.2 x10^3/uL (0.3-0.8); MONOCYTES % (AUTO) 2.6 % (0.0-13.0); NEUTROPHILS # (AUTO) 6.6 x10^3/uL (2.2-4.8); NEUTROPHILS % (AUTO) 76.2 % (42.0-75.0); PLATELET COUNT 100 X10^3/uL (150.0-450.0); RED BLOOD COUNT 3.94 X10^6/uL (3.5-5.4); RED CELL DISTRIBUTION WIDTH 14.5 % (11.6-16.5); WHITE BLOOD COUNT 8.6 X10^3/uL (3.6-10.0)
[2019-11-14 08:09] LABS: ALBUMIN 2.9 g/dL (3.4-5.0); ALKALINE PHOSPHATASE 93 Units/L (46-116); BLOOD UREA NITROGEN 36 mg/dL (7-18); CALCIUM 8.7 mg/dL (8.5-10.1); CARBON DIOXIDE 25.6 mmol/L (21-32); COR CA(FOR HYPOALB) 9.6 mg/dL (8.5-10.1); COR NA(FOR HYPERGLY) 157 mmol/L (136-145); CREATININE 0.94 mg/dL (0.55-1.02); TOTAL PROTEIN 7.5 g/dL (6.4-8.2); eGFR NON BLACK RACES > 60 (>60)
[2019-11-14 08:14] LABS: CHLORIDE 116 mmol/L (98-107); SODIUM 153 mmol/L (136-145)
[2019-11-14 08:50] LABS: ALANINE AMINOTRANSFERASE 1390 Units/L (12-78); ASPARTATE AMINO TRANSFERASE 2211 Units/L (15-37)
[2019-11-14] MEDS: COZAAR PO SCH (09:04)
[2019-11-14] MEDS: PEPCID TAB 20 MG PO SCH ×2 (09:05→20:02)
[2019-11-14] MEDS: LOPRESSOR TAB 25 MG PO SCH ×2 (09:05→20:02)
[2019-11-14] MEDS: TRICOR TAB 160 MG PO SCH (09:06)
[2019-11-14] MEDS: TYGACIL 50 MG VIAL 50 MG in NS 100 ML IV 100 ML IV SCH ×2 (10:18→22:29)
[2019-11-14] MEDS: LR 1000 ML IV 1,000 ML IV SCH ×4 (10:20→22:17)
[2019-11-14] MEDS ORDERED: POTASSIUM CHL 60 MEQ/NS 0.45% 500 ML IV PRN (10:21)
[2019-11-14] MEDS ORDERED: POTASSIUM CHL 40 MEQ/NS 0.45% 500 ML IV PRN (10:21)
[2019-11-14] MEDS ORDERED: K-DUR TAB 20 MEQ PO PRN (10:21)
[2019-11-14] MEDS ORDERED: MICRO K EXTEN CAP 10 MEQ PO PRN (10:21)
[2019-11-14] MEDS ORDERED: POTASSIUM CHLORIDE LIQ 20 MEQ UDC PO PRN (10:21)
[2019-11-14] MEDS: PROVENTIL NEB TX 0.083% 2.5MG/ 3ML NEB SCH ×2 (10:45→20:51)
[2019-11-14] MEDS: PULMICORT NEB TX 0.5 MG NEB SCH ×2 (10:45→20:51)
[2019-11-14] MEDS: VASOTEC INJ 2.5 MG VIAL IVP PRN (16:45)
[2019-11-15] MEDS: LR 1000 ML IV 1,000 ML IV SCH ×2 (02:49→11:33)
[2019-11-15] MEDS: HumuLIN R SUBCUT PRN ×3 (05:53→20:45)
[2019-11-15 06:10] LABS: BASOPHILS % (AUTO) 0.3 % (0.2-1.0); EOSINOPHILS % (AUTO) 0.1 % (0.9-2.9); HEMATOCRIT 35.8 % (36.0-47.0); HEMOGLOBIN 12.4 g/dL (12.0-16.0); LYMPHOCYTES # (AUTO) 1.6 X10^3/uL (1.3-2.9); LYMPHOCYTES % (AUTO) 21.6 % (21.0-51.0); MEAN CORPUSCULAR HEMOGLOBIN 31.6 pg (27.0-34.0); MEAN CORPUSCULAR HGB CONC 34.5 g/dL (33.0-35.0); MEAN CORPUSCULAR VOLUME 91.7 fL (80.0-100.0); MONOCYTES # (AUTO) 0.3 x10^3/uL (0.3-0.8); MONOCYTES % (AUTO) 3.6 % (0.0-13.0); NEUTROPHILS # (AUTO) 5.4 x10^3/uL (2.2-4.8); NEUTROPHILS % (AUTO) 74.4 % (42.0-75.0); PLATELET COUNT 85 X10^3/uL (150.0-450.0); RED CELL DISTRIBUTION WIDTH 14.4 % (11.6-16.5); WHITE BLOOD COUNT 7.3 X10^3/uL (3.6-10.0)
[2019-11-15 06:29] LABS: ALANINE AMINOTRANSFERASE 761 Units/L (12-78); ALBUMIN 2.4 g/dL (3.4-5.0); ALKALINE PHOSPHATASE 91 Units/L (46-116); ASPARTATE AMINO TRANSFERASE 485 Units/L (15-37); BLOOD UREA NITROGEN 29 mg/dL (7-18); CARBON DIOXIDE 28.2 mmol/L (21-32); CHLORIDE 113 mmol/L (98-107); COR CA(FOR HYPOALB) 9.3 mg/dL (8.5-10.1); COR NA(FOR HYPERGLY) 155 mmol/L (136-145); CREATININE 0.87 mg/dL (0.55-1.02); eGFR NON BLACK RACES > 60 (>60)
[2019-11-15 06:38] LABS: SODIUM 151 mmol/L (136-145)
[2019-11-15] MEDS: KLOR-CON PO PRN (06:51)
[2019-11-15] MEDS ORDERED: APRESOLINE INJ 20 MG VIAL IVP PRN (08:15)
[2019-11-15] MEDS: TYGACIL 50 MG VIAL 50 MG in NS 100 ML IV 100 ML IV SCH ×2 (08:47→11:34)
[2019-11-15] MEDS: PEPCID TAB 20 MG PO SCH ×2 (08:47→21:00)
[2019-11-15] MEDS: LOPRESSOR TAB 25 MG PO SCH ×2 (08:47→21:00)
[2019-11-15] MEDS: TRICOR TAB 160 MG PO SCH (08:47)
[2019-11-15] MEDS: COZAAR PO SCH (08:49)
[2019-11-15] MEDS: PULMICORT NEB TX 0.5 MG NEB SCH ×2 (09:30→21:30)
[2019-11-15] MEDS: PROVENTIL NEB TX 0.083% 2.5MG/ 3ML NEB SCH ×2 (09:30→21:30)
[2019-11-15 09:37] LABS: ABG BASE EXCESS 5.7 mmol/L (-2.0-2.0); ABG HCO3 28.6 mmol/L (22-26)
--- NOTE | 2019-11-15 10:20 | RAD ---
HISTORYPNEUMONIASTUDYPortable AP chestCOMPARISONAugust 2019FINDINGSThere is overall limited inspiration. There is a mild infiltrate at the right lower lobe unimproved. Upper lobes appear clear. The heart is mildly enlarged status post CABG. There is a Port-A-Cath via the right subclavian vein unchanged. No significant bony abnormality is demonstrated. There is no obvious pleural effusion.IMPRESSIONPersistent mild right lower lobe pneumoniaElectronically signed by: EZEKIEL LANGSTON (Nov 15, 2019 10:18:41)
[2019-11-15] MEDS: MAGNESIUM SULFATE 1 GRAM/100 mL PREMIX 1 GM/100 ML BAG IV PRN ×4 (11:33→17:10)
[2019-11-15] MEDS ORDERED: LEVAQUIN PREMIX IV 500 MG 500 MG/100 ML BAG IV ONE (19:24)
[2019-11-15] MEDS ORDERED: ZOSYN VIAL 3.375 GRAMS IV ONE (19:25)
[2019-11-15] MEDS ORDERED: NS 100 ML IV + SPIKE MINIBAG* 100 ML IV ONE (19:26)
[2019-11-15] MEDS: LEVAQUIN PREMIX IV 500 MG 500 MG/100 ML BAG IV SCH (19:49)
[2019-11-15] MEDS: SNACK - Diabetic Appropriate PO SCH (20:20)
[2019-11-15] MEDS: ZOSYN VIAL 3.375 GRAMS 3.375 G in NS 100 ML IV + SPIKE MINIBAG* 100 ML IV SCH ×2 (21:00→21:35)
[2019-11-16] MEDS ORDERED: NS 1000 ML 1,000 ML ONE (00:18)
[2019-11-16] MEDS: LR 1000 ML IV 1,000 ML IV SCH (01:05)
[2019-11-16] MEDS: ZOSYN VIAL 3.375 GRAMS 3.375 G in NS 100 ML IV + SPIKE MINIBAG* 100 ML IV SCH ×3 (05:33→21:24)
[2019-11-16 05:35] LABS: BASOPHILS % (AUTO) 0.3 % (0.2-1.0); EOSINOPHILS # (AUTO) 0.1 x10^3/uL (0.0-0.2); EOSINOPHILS % (AUTO) 1.2 % (0.9-2.9); HEMATOCRIT 32.5 % (36.0-47.0); HEMOGLOBIN 11.1 g/dL (12.0-16.0); LYMPHOCYTES # (AUTO) 1.5 X10^3/uL (1.3-2.9); LYMPHOCYTES % (AUTO) 22.7 % (21.0-51.0); MEAN CORPUSCULAR HEMOGLOBIN 31.4 pg (27.0-34.0); MEAN CORPUSCULAR HGB CONC 34.1 g/dL (33.0-35.0); MEAN CORPUSCULAR VOLUME 92.2 fL (80.0-100.0); MONOCYTES # (AUTO) 0.3 x10^3/uL (0.3-0.8); MONOCYTES % (AUTO) 5.3 % (0.0-13.0); NEUTROPHILS # (AUTO) 4.6 x10^3/uL (2.2-4.8); NEUTROPHILS % (AUTO) 70.5 % (42.0-75.0); PLATELET COUNT 79 X10^3/uL (150.0-450.0); RED BLOOD COUNT 3.53 X10^6/uL (3.5-5.4); WHITE BLOOD COUNT 6.6 X10^3/uL (3.6-10.0)
[2019-11-16 05:47] LABS: ALANINE AMINOTRANSFERASE 431 Units/L (12-78); ALBUMIN 2.1 g/dL (3.4-5.0); ALKALINE PHOSPHATASE 70 Units/L (46-116); ASPARTATE AMINO TRANSFERASE 112 Units/L (15-37); BLOOD UREA NITROGEN 23 mg/dL (7-18); CALCIUM 7.7 mg/dL (8.5-10.1); CARBON DIOXIDE 31.4 mmol/L (21-32); CHLORIDE 112 mmol/L (98-107); COR CA(FOR HYPOALB) 9.2 mg/dL (8.5-10.1); COR NA(FOR HYPERGLY) 150 mmol/L (136-145); CREATININE 0.83 mg/dL (0.55-1.02); MAGNESIUM 2.2 mg/dL (1.7-2.9); SODIUM 149 mmol/L (136-145); TOTAL PROTEIN 5.3 g/dL (6.4-8.2); eGFR NON BLACK RACES > 60 (>60)
[2019-11-16] MEDS: K-RIDER 10 MEQ/NS 100 ML 10 MEQ/100 ML BAG IV PRN ×2 (06:05→07:34)
[2019-11-16] MEDS ORDERED: LOPRESSOR TAB 25 MG PO SCH (09:00)
[2019-11-16] MEDS ORDERED: COZAAR PO SCH (09:00)
[2019-11-16] MEDS ORDERED: VITAMIN B-1 PO ONE (09:05)
[2019-11-16] MEDS ORDERED: LEVEMIR SC ONE (09:08)
[2019-11-16] MEDS: COZAAR PO SCH (09:30)
[2019-11-16] MEDS: LEVAQUIN PREMIX IV 500 MG 500 MG/100 ML BAG IV SCH (09:31)
[2019-11-16] MEDS: CYMBALTA PO SCH (09:31)
[2019-11-16] MEDS: KEPPRA TAB 500 MG PO SCH ×2 (09:32→21:22)
[2019-11-16] MEDS: LEVEMIR SC SCH (09:33)
[2019-11-16] MEDS: LOPRESSOR TAB 25 MG PO SCH ×2 (09:34→21:20)
[2019-11-16] MEDS: NEURONTIN CAP 300 MG PO SCH ×3 (09:35→21:24)
[2019-11-16] MEDS: PEPCID TAB 20 MG PO SCH ×2 (09:36→21:23)
[2019-11-16] MEDS: PLAVIX PO SCH (09:37)
[2019-11-16] MEDS: SEROquel TAB 25 mg PO SCH (09:39)
[2019-11-16] MEDS: TAB-A-VITE PO SCH (09:40)
[2019-11-16] MEDS: TRICOR TAB 160 MG PO SCH (09:40)
[2019-11-16] MEDS: VITAMIN B-1 PO SCH (09:41)
[2019-11-16] MEDS: ZINC SULFATE PO SCH (09:43)
[2019-11-16] MEDS: PROVENTIL NEB TX 0.083% 2.5MG/ 3ML NEB SCH ×2 (09:52→20:20)
[2019-11-16] MEDS: PULMICORT NEB TX 0.5 MG NEB SCH ×2 (09:53→20:20)
[2019-11-16] MEDS ORDERED: LOPRESSOR TAB 25 MG ONE (19:11)
[2019-11-16] MEDS ORDERED: DEPAKOTE D.R. TAB PO ONE (19:12)
[2019-11-16] MEDS ORDERED: PEPCID TAB 20 MG ONE (19:12)
[2019-11-16] MEDS ORDERED: KEPPRA TAB 500 MG ONE (19:12)
[2019-11-16] MEDS ORDERED: NEURONTIN TAB 600 MG ONE (19:12)
[2019-11-16] MEDS ORDERED: ZOSYN VIAL 3.375 GRAMS IV ONE (19:13)
[2019-11-16] MEDS ORDERED: NS 100 ML IV + SPIKE MINIBAG* 100 ML IV ONE (19:14)
[2019-11-16] MEDS ORDERED: SNACK - Diabetic Appropriate PO SCH (20:00)
[2019-11-16] MEDS: SNACK - Diabetic Appropriate PO SCH (20:30)
[2019-11-16] MEDS: DEPAKOTE D.R. TAB PO SCH (21:22)
[2019-11-17] MEDS: NEURONTIN CAP 300 MG PO SCH ×3 (05:38→21:21)
[2019-11-17] MEDS: ZOSYN VIAL 3.375 GRAMS 3.375 G in NS 100 ML IV + SPIKE MINIBAG* 100 ML IV SCH ×3 (05:38→21:21)
[2019-11-17] MEDS: LR 1000 ML IV 1,000 ML IV SCH ×4 (05:41→18:54)
[2019-11-17 06:19] LABS: BASOPHILS % (AUTO) 0.2 % (0.2-1.0); EOSINOPHILS # (AUTO) 0.2 x10^3/uL (0.0-0.2); EOSINOPHILS % (AUTO) 2.8 % (0.9-2.9); HEMATOCRIT 29.4 % (36.0-47.0); HEMOGLOBIN 9.9 g/dL (12.0-16.0); LYMPHOCYTES # (AUTO) 1.6 X10^3/uL (1.3-2.9); LYMPHOCYTES % (AUTO) 26.2 % (21.0-51.0); MEAN CORPUSCULAR HEMOGLOBIN 31.7 pg (27.0-34.0); MEAN CORPUSCULAR HGB CONC 33.8 g/dL (33.0-35.0); MEAN CORPUSCULAR VOLUME 93.8 fL (80.0-100.0); MEAN PLATELET VOLUME 9.3 fL (7.4-11.0); MONOCYTES # (AUTO) 0.3 x10^3/uL (0.3-0.8); MONOCYTES % (AUTO) 5.6 % (0.0-13.0); NEUTROPHILS # (AUTO) 4.1 x10^3/uL (2.2-4.8); NEUTROPHILS % (AUTO) 65.2 % (42.0-75.0); PLATELET COUNT 64 X10^3/uL (150.0-450.0); RED BLOOD COUNT 3.13 X10^6/uL (3.5-5.4); RED CELL DISTRIBUTION WIDTH 14.2 % (11.6-16.5); WHITE BLOOD COUNT 6.2 X10^3/uL (3.6-10.0)
[2019-11-17 06:24] LABS: ALANINE AMINOTRANSFERASE 263 Units/L (12-78); ALBUMIN 1.8 g/dL (3.4-5.0); ALKALINE PHOSPHATASE 66 Units/L (46-116); ASPARTATE AMINO TRANSFERASE 49 Units/L (15-37); BLOOD UREA NITROGEN 20 mg/dL (7-18); CALCIUM 7.6 mg/dL (8.5-10.1); CHLORIDE 112 mmol/L (98-107); COR CA(FOR HYPOALB) 9.4 mg/dL (8.5-10.1); COR NA(FOR HYPERGLY) 147 mmol/L (136-145); CREATININE 0.87 mg/dL (0.55-1.02); SODIUM 146 mmol/L (136-145); TOTAL PROTEIN 4.7 g/dL (6.4-8.2); eGFR NON BLACK RACES > 60 (>60)
--- NOTE | 2019-11-17 07:16 | RAD ---
HISTORYPNEUMONIASTUDYCHEST, 1 VIEWCOMPARISON[11/15/2019]TECHNIQUE[PA and lateral views of the chest.]FINDINGS[Cardiac and mediastinal contours appear normal. Post median sternotomy. Right chest wall port with tip in good position. There are patchy right infrahilar and left lower lung opacities similar to prior. No pleural effusion]IMPRESSION[No significant change in patchy right infrahilar and left lower lung opacities consistent with pneumonia.]Electronically signed by: Kvng Haynes (Nov 17, 2019 07:15:26)
[2019-11-17] MEDS: PULMICORT NEB TX 0.5 MG NEB SCH ×2 (08:27→20:50)
[2019-11-17] MEDS: PROVENTIL NEB TX 0.083% 2.5MG/ 3ML NEB SCH ×2 (08:27→20:50)
[2019-11-17] MEDS: CYMBALTA PO SCH (09:05)
[2019-11-17] MEDS: COZAAR PO SCH (09:05)
[2019-11-17] MEDS: KEPPRA TAB 500 MG PO SCH ×2 (09:07→21:20)
[2019-11-17] MEDS: LEVAQUIN PREMIX IV 500 MG 500 MG/100 ML BAG IV SCH (09:09)
[2019-11-17] MEDS: LEVEMIR SC SCH (09:09)
[2019-11-17] MEDS: ZINC SULFATE PO SCH (09:11)
[2019-11-17] MEDS: LOPRESSOR TAB 25 MG PO SCH ×2 (09:11→21:20)
[2019-11-17] MEDS: PEPCID TAB 20 MG PO SCH ×2 (09:12→21:21)
[2019-11-17] MEDS: VITAMIN B-1 PO SCH (09:13)
[2019-11-17] MEDS: TRICOR TAB 160 MG PO SCH (09:13)
[2019-11-17] MEDS: TAB-A-VITE PO SCH (09:14)
[2019-11-17] MEDS: SEROquel TAB 25 mg PO SCH (09:15)
[2019-11-17] MEDS: PLAVIX PO SCH (09:15)
[2019-11-17] MEDS: HumuLIN R SUBCUT PRN ×3 (11:23→21:22)
[2019-11-17] MEDS: SNACK - Diabetic Appropriate PO SCH (20:55)
[2019-11-17] MEDS: DEPAKOTE D.R. TAB PO SCH (21:20)
[2019-11-18] MEDS: LR 1000 ML IV 1,000 ML IV SCH ×3 (05:32→14:42)
[2019-11-18] MEDS: NEURONTIN CAP 300 MG PO SCH ×3 (05:32→21:06)
[2019-11-18] MEDS: ZOSYN VIAL 3.375 GRAMS 3.375 G in NS 100 ML IV + SPIKE MINIBAG* 100 ML IV SCH ×3 (05:33→22:24)
[2019-11-18 06:34] LABS: BASOPHILS % (AUTO) 0.6 % (0.2-1.0); EOSINOPHILS # (AUTO) 0.3 x10^3/uL (0.0-0.2); EOSINOPHILS % (AUTO) 4.4 % (0.9-2.9); HEMOGLOBIN 9.7 g/dL (12.0-16.0); LYMPHOCYTES # (AUTO) 1.8 X10^3/uL (1.3-2.9); LYMPHOCYTES % (AUTO) 26.7 % (21.0-51.0); MEAN CORPUSCULAR HEMOGLOBIN 32.1 pg (27.0-34.0); MEAN CORPUSCULAR HGB CONC 34.8 g/dL (33.0-35.0); MEAN CORPUSCULAR VOLUME 92.4 fL (80.0-100.0); MEAN PLATELET VOLUME 8.6 fL (7.4-11.0); MONOCYTES # (AUTO) 0.4 x10^3/uL (0.3-0.8); MONOCYTES % (AUTO) 5.6 % (0.0-13.0); NEUTROPHILS # (AUTO) 4.1 x10^3/uL (2.2-4.8); NEUTROPHILS % (AUTO) 62.7 % (42.0-75.0); PLATELET COUNT 69 X10^3/uL (150.0-450.0); RED BLOOD COUNT 3.03 X10^6/uL (3.5-5.4); WHITE BLOOD COUNT 6.6 X10^3/uL (3.6-10.0)
[2019-11-18 07:14] LABS: ALANINE AMINOTRANSFERASE 174 Units/L (12-78); ALBUMIN 1.8 g/dL (3.4-5.0); ALKALINE PHOSPHATASE 58 Units/L (46-116); ASPARTATE AMINO TRANSFERASE 33 Units/L (15-37); BLOOD UREA NITROGEN 11 mg/dL (7-18); CALCIUM 7.9 mg/dL (8.5-10.1); CARBON DIOXIDE 28.2 mmol/L (21-32); CHLORIDE 112 mmol/L (98-107); COR CA(FOR HYPOALB) 9.7 mg/dL (8.5-10.1); COR NA(FOR HYPERGLY) 147 mmol/L (136-145); CREATININE 0.91 mg/dL (0.55-1.02); SODIUM 146 mmol/L (136-145); TOTAL PROTEIN 4.9 g/dL (6.4-8.2); eGFR NON BLACK RACES > 60 (>60)
[2019-11-18] MEDS ORDERED: LASIX ONE (08:34)
[2019-11-18] MEDS: COZAAR PO SCH (08:54)
[2019-11-18] MEDS: VITAMIN B-1 PO SCH (08:55)
[2019-11-18] MEDS: CYMBALTA PO SCH (08:56)
[2019-11-18] MEDS: ZINC SULFATE PO SCH (08:58)
[2019-11-18] MEDS: LOPRESSOR TAB 25 MG PO SCH ×2 (08:58→20:32)
[2019-11-18] MEDS: KEPPRA TAB 500 MG PO SCH ×2 (08:59→20:31)
[2019-11-18] MEDS: SEROquel TAB 25 mg PO SCH (09:00)
[2019-11-18] MEDS: TAB-A-VITE PO SCH (09:00)
[2019-11-18] MEDS ORDERED: LASIX IVP SCH (09:00)
[2019-11-18] MEDS: PLAVIX PO SCH (09:01)
[2019-11-18] MEDS: TRICOR TAB 160 MG PO SCH (09:01)
[2019-11-18] MEDS: PEPCID TAB 20 MG PO SCH ×2 (09:03→20:32)
[2019-11-18] MEDS: MILK OF MAGNESIA PO SCH (09:03)
[2019-11-18] MEDS: LEVEMIR SC SCH (09:03)
[2019-11-18] MEDS: LEVAQUIN PREMIX IV 500 MG 500 MG/100 ML BAG IV SCH (09:04)
[2019-11-18] MEDS: PROVENTIL NEB TX 0.083% 2.5MG/ 3ML NEB SCH ×2 (11:59→21:00)
[2019-11-18] MEDS: PULMICORT NEB TX 0.5 MG NEB SCH ×2 (11:59→21:00)
[2019-11-18] MEDS: HumuLIN R SUBCUT PRN ×2 (16:57→21:07)
[2019-11-18] MEDS: SNACK - Diabetic Appropriate PO SCH (20:30)
[2019-11-18] MEDS: DEPAKOTE D.R. TAB PO SCH (20:31)
[2019-11-19] MEDS: LR 1000 ML IV 1,000 ML IV SCH ×4 (04:24→19:25)
[2019-11-19] MEDS: NEURONTIN CAP 300 MG PO SCH ×3 (05:17→21:00)
[2019-11-19] MEDS: ZOSYN VIAL 3.375 GRAMS 3.375 G in NS 100 ML IV + SPIKE MINIBAG* 100 ML IV SCH ×3 (05:18→21:00)
[2019-11-19 05:43] LABS: BASOPHILS % (AUTO) 0.2 % (0.2-1.0); EOSINOPHILS # (AUTO) 0.4 x10^3/uL (0.0-0.2); EOSINOPHILS % (AUTO) 5.4 % (0.9-2.9); HEMATOCRIT 28.3 % (36.0-47.0); HEMOGLOBIN 9.9 g/dL (12.0-16.0); LYMPHOCYTES # (AUTO) 2.1 X10^3/uL (1.3-2.9); LYMPHOCYTES % (AUTO) 31.4 % (21.0-51.0); MEAN CORPUSCULAR HEMOGLOBIN 32.2 pg (27.0-34.0); MEAN CORPUSCULAR HGB CONC 34.9 g/dL (33.0-35.0); MEAN CORPUSCULAR VOLUME 92.2 fL (80.0-100.0); MEAN PLATELET VOLUME 8.8 fL (7.4-11.0); MONOCYTES # (AUTO) 0.5 x10^3/uL (0.3-0.8); MONOCYTES % (AUTO) 7.1 % (0.0-13.0); NEUTROPHILS # (AUTO) 3.8 x10^3/uL (2.2-4.8); NEUTROPHILS % (AUTO) 55.9 % (42.0-75.0); PLATELET COUNT 92 X10^3/uL (150.0-450.0); RED BLOOD COUNT 3.07 X10^6/uL (3.5-5.4); RED CELL DISTRIBUTION WIDTH 13.9 % (11.6-16.5); WHITE BLOOD COUNT 6.8 X10^3/uL (3.6-10.0)
[2019-11-19 05:47] LABS: ALANINE AMINOTRANSFERASE 118 Units/L (12-78); ALBUMIN 1.8 g/dL (3.4-5.0); ALKALINE PHOSPHATASE 52 Units/L (46-116); ASPARTATE AMINO TRANSFERASE 27 Units/L (15-37); BLOOD UREA NITROGEN 8 mg/dL (7-18); CALCIUM 7.9 mg/dL (8.5-10.1); CARBON DIOXIDE 34.3 mmol/L (21-32); CHLORIDE 108 mmol/L (98-107); COR CA(FOR HYPOALB) 9.7 mg/dL (8.5-10.1); CREATININE 0.94 mg/dL (0.55-1.02); SODIUM 145 mmol/L (136-145); TOTAL PROTEIN 5.1 g/dL (6.4-8.2); eGFR NON BLACK RACES > 60 (>60)
--- NOTE | 2019-11-19 06:16 | RAD ---
HISTORYSOBSTUDYCHEST, 1 [id number] view of the chestFINDINGSRight chest wall port with tip in good position. Cardiac and mediastinal contours appear stable. Post median sternotomy. Bibasilar airspace disease appears similar. No pneumothorax.IMPRESSIONNo significant change in bibasilar airspace disease.Electronically signed by: Kvng Haynes (Nov 19, 2019 06:15:11)
[2019-11-19] MEDS: KLOR-CON PO PRN (06:43)
[2019-11-19] MEDS: MAGNESIUM SULFATE 1 GRAM/100 mL PREMIX 1 GM/100 ML BAG IV PRN ×2 (08:58→10:41)
[2019-11-19] MEDS: COZAAR PO SCH (09:31)
[2019-11-19] MEDS: CYMBALTA PO SCH (09:31)
[2019-11-19] MEDS: KEPPRA TAB 500 MG PO SCH ×2 (09:33→21:00)
[2019-11-19] MEDS: LEVAQUIN PREMIX IV 500 MG 500 MG/100 ML BAG IV SCH (09:34)
[2019-11-19] MEDS: LEVEMIR SC SCH (09:35)
[2019-11-19] MEDS: LOPRESSOR TAB 25 MG PO SCH ×2 (09:36→21:00)
[2019-11-19] MEDS: MILK OF MAGNESIA PO SCH (09:37)
[2019-11-19] MEDS: PEPCID TAB 20 MG PO SCH ×2 (09:37→21:00)
[2019-11-19] MEDS: PLAVIX PO SCH (09:39)
[2019-11-19] MEDS: TAB-A-VITE PO SCH (09:40)
[2019-11-19] MEDS: SEROquel TAB 25 mg PO SCH (09:41)
[2019-11-19] MEDS: VITAMIN B-1 PO SCH (09:41)
[2019-11-19] MEDS: TRICOR TAB 160 MG PO SCH (09:41)
[2019-11-19] MEDS: ZINC SULFATE PO SCH (09:41)
[2019-11-19] MEDS: PULMICORT NEB TX 0.5 MG NEB SCH ×2 (10:30→21:10)
[2019-11-19] MEDS: PROVENTIL NEB TX 0.083% 2.5MG/ 3ML NEB SCH ×2 (10:30→21:10)
[2019-11-19 11:19] LABS: ABG BASE EXCESS 12.9 mmol/L (-2.0-2.0)
[2019-11-19 11:20] LABS: ABG HCO3 36.8 mmol/L (22-26)
[2019-11-19 11:21] LABS: FRACTIONATED INSPIRED OXYGEN 21
[2019-11-19] MEDS: HumuLIN R SUBCUT PRN (12:48)
[2019-11-19] MEDS ORDERED: NS 100 ML IV + SPIKE MINIBAG* 100 ML IV ONE (20:05)
[2019-11-19] MEDS ORDERED: ZOSYN VIAL 3.375 GRAMS IV ONE (20:05)
[2019-11-19] MEDS: DEPAKOTE D.R. TAB PO SCH (21:00)
[2019-11-19] MEDS: SNACK - Diabetic Appropriate PO SCH (21:00)
[2019-11-20] MEDS: LR 1000 ML IV 1,000 ML IV SCH ×4 (02:00→18:38)
[2019-11-20 05:24] LABS: ABG BASE EXCESS 12.1 mmol/L (-2.0-2.0)
[2019-11-20 05:25] LABS: ABG HCO3 36.7 mmol/L (22-26)
[2019-11-20 06:41] LABS: BASOPHILS % (AUTO) 0.4 % (0.2-1.0); EOSINOPHILS # (AUTO) 0.3 x10^3/uL (0.0-0.2); EOSINOPHILS % (AUTO) 3.8 % (0.9-2.9); HEMATOCRIT 28.6 % (36.0-47.0); LYMPHOCYTES # (AUTO) 1.6 X10^3/uL (1.3-2.9); LYMPHOCYTES % (AUTO) 23.1 % (21.0-51.0); MEAN CORPUSCULAR HGB CONC 34.8 g/dL (33.0-35.0); MEAN CORPUSCULAR VOLUME 92.1 fL (80.0-100.0); MEAN PLATELET VOLUME 7.7 fL (7.4-11.0); MONOCYTES # (AUTO) 0.5 x10^3/uL (0.3-0.8); MONOCYTES % (AUTO) 6.8 % (0.0-13.0); NEUTROPHILS # (AUTO) 4.6 x10^3/uL (2.2-4.8); NEUTROPHILS % (AUTO) 65.9 % (42.0-75.0); PLATELET COUNT 119 X10^3/uL (150.0-450.0); RED BLOOD COUNT 3.11 X10^6/uL (3.5-5.4); RED CELL DISTRIBUTION WIDTH 13.9 % (11.6-16.5)
[2019-11-20] MEDS: NEURONTIN CAP 300 MG PO SCH ×3 (06:43→21:30)
[2019-11-20] MEDS: ZOSYN VIAL 3.375 GRAMS 3.375 G in NS 100 ML IV + SPIKE MINIBAG* 100 ML IV SCH ×3 (06:43→21:30)
[2019-11-20 06:57] LABS: ALANINE AMINOTRANSFERASE 82 Units/L (12-78); ALBUMIN 1.8 g/dL (3.4-5.0); ALKALINE PHOSPHATASE 51 Units/L (46-116); ASPARTATE AMINO TRANSFERASE 21 Units/L (15-37); BLOOD UREA NITROGEN 5 mg/dL (7-18); CALCIUM 8.2 mg/dL (8.5-10.1); CARBON DIOXIDE 34.2 mmol/L (21-32); CHLORIDE 106 mmol/L (98-107); CREATININE 0.86 mg/dL (0.55-1.02); MAGNESIUM 1.9 mg/dL (1.7-2.9); SODIUM 143 mmol/L (136-145); TOTAL PROTEIN 5.4 g/dL (6.4-8.2); eGFR NON BLACK RACES > 60 (>60)
[2019-11-20] MEDS: COZAAR PO SCH (08:36)
[2019-11-20] MEDS: CYMBALTA PO SCH (08:37)
[2019-11-20] MEDS: LEVAQUIN PREMIX IV 500 MG 500 MG/100 ML BAG IV SCH (08:38)
[2019-11-20] MEDS: KEPPRA TAB 500 MG PO SCH ×2 (08:38→21:31)
[2019-11-20] MEDS: LOPRESSOR TAB 25 MG PO SCH ×2 (08:39→21:31)
[2019-11-20] MEDS: LEVEMIR SC SCH (08:39)
[2019-11-20] MEDS: PEPCID TAB 20 MG PO SCH ×2 (08:40→21:30)
[2019-11-20] MEDS: MILK OF MAGNESIA PO SCH (08:40)
[2019-11-20] MEDS: PLAVIX PO SCH (08:41)
[2019-11-20] MEDS: SEROquel TAB 25 mg PO SCH (08:42)
[2019-11-20] MEDS: TAB-A-VITE PO SCH (08:42)
[2019-11-20] MEDS: TRICOR TAB 160 MG PO SCH (08:42)
[2019-11-20] MEDS: VITAMIN B-1 PO SCH (08:43)
[2019-11-20] MEDS: ZINC SULFATE PO SCH (08:43)
[2019-11-20] MEDS: PROVENTIL NEB TX 0.083% 2.5MG/ 3ML NEB SCH ×2 (10:20→20:45)
[2019-11-20] MEDS: PULMICORT NEB TX 0.5 MG NEB SCH ×2 (10:20→20:45)
--- NOTE | 2019-11-20 10:27 | PCM.PROG ---
Progress Note Progress Note for Day of Date of Exam: 11/20/19 Subjective Subjective: Patient seen at bedside, no overnight events. Patient is admitted for COVID-19 pneumonia and UTI. Her test from 11/15/2019 came back positive. She is currently on 2L NC. She is alert and oriented to self, answers questions appropriately. Unclear if that's her baseline, she does have a hx of CVA. Urine Cx showed E. Faecalis, she is currently on Levaquin and Zosyn. She is eating better. CXR: bibasilar airspace disease Labs: Hgb: 10 WBC:7 Plt: 119 Blood Cx neg Plan: continue current treatment with IV antibiotics, monitor AM labs, wean O2 as tolerated to keep sats > 90%. Continue aggressive pulmonary toilet, continue Vitamins. Past Medical Family Social History Past Med/Fam/Surg Hx: No changes since H&P Allergies: Allergies No Known Drug Allergies Allergy (Verified 02/03/17 15:43) Review of Systems ROS: No change since H&P Vital Signs and I&O's Vital Signs: Temperature 97.8 F Pulse Rate [Left Brachial] 80 Pulse Rate [Right Radial] 80 Pulse Rate 79 Respiratory Rate 20 Blood Pressure [Right Arm] 100/58 Blood Pressure [Left Arm] 131/78 Blood Pressure 174/91 O2 Sat by Pulse Oximetry 96 Intake and Output: Intake & Output 11/17/19 11/18/19 11/19/19 11/20/19 23:59 23:59 23:59 23:59 Intake Total 3115 / 3115 3227 / 3227 2552 / 2552 642 / 642 Output Total 1100 / 1100 3450 / 3450 1850 / 1850 525 / 525 Balance 2014 -223 / -223 702 / 702 117 / 117 Physical Exam Oriented: Person Eyes: Normal Ear: Normal Throat: Normal Respiratory: Generalized and Diminished Cardiovascular: Normal Auscultation: Bowel Sounds: Normal Palpation: Normal Tenderness: Normal Skin: Decreased Turgur Musculoskeletal: Normal Psychiatric: Normal Mood Description: Calm Affect: Flat Speech Pattern: Clear and Appropriate Laboratory and Diagnostics Result Diagrams: 11/20/19 05:35 11/20/19 05:35 Labs: 11/12/19 16:55 Blood Blood Culture - Final 11/12/19 16:50 Blood Blood Culture - Final 11/12/19 17:13 Urine,Catheterized Urine Culture - Final Enterococcus Faecalis Laboratory WBC 7.0 X10^3/uL (3.6-10.0) 11/20/19 05:35 RBC 3.11 X10^6/uL (3.5-5.4) L 11/20/19 05:35 Hgb 10.0 g/dL (12.0-16.0) L 11/20/19 05:35 Hct 28.6 % (36.0-47.0) L 11/20/19 05:35 MCV 92.1 fL (80.0-100.0) 11/20/19 05:35 MCH 32.0 pg (27.0-34.0) 11/20/19 05:35 MCHC 34.8 g/dL (33.0-35.0) 11/20/19 05:35 RDW 13.9 % (11.6-16.5) 11/20/19 05:35 Plt Count 119 X10^3/uL (150.0-450.0) L 11/20/19 05:35 MPV 7.7 fL (7.4-11.0) 11/20/19 05:35 Neut % (Auto) 65.9 % (42.0-75.0) 11/20/19 05:35 Lymph % (Auto) 23.1 % (21.0-51.0) 11/20/19 05:35 [place] % (Auto) 6.8 % (0.0-13.0) 11/20/19 05:35 Eos % (Auto) 3.8 % (0.9-2.9) H 11/20/19 05:35 Baso % (Auto) 0.4 % (0.2-1.0) 11/20/19 05:35 Neut # (Auto) 4.6 x10^3/uL (2.2-4.8) 11/20/19 05:35 Lymph # (Auto) 1.6 X10^3/uL (1.3-2.9) 11/20/19 05:35 [place] # (Auto) 0.5 x10^3/uL (0.3-0.8) 11/20/19 05:35 Eos # (Auto) 0.3 x10^3/uL (0.0-0.2) H 11/20/19 05:35 Baso # (Auto) 0.0 X10^3/uL (0.0-0.1) 11/20/19 05:35 Absolute Nucleated RBC 0.0 /100WBC 11/20/19 05:35 D-Dimer 1000 ng/mL (0-400) H* 11/12/19 16:55 Sample Site Lb 11/20/19 05:17 ABG pH 7.510 (7.35-7.45) H 11/20/19 05:17 ABG pCO2 46.0 mmHg (35.0-45.0) H 11/20/19 05:17 ABG pO2 79.0 mmHg (80.0-100.0) L 11/20/19 05:17 ABG HCO3 36.7 mmol/L (22-26) H* 11/20/19 05:17 ABG O2 Saturation 97.0 % (90-100) 11/20/19 05:17 ABG Base Excess 12.1 mmol/L (-2.0-2.0) H 11/20/19 05:17 Arnaldo Test N/a 11/20/19 05:17 A-a Gradient 63.0 mmHg 11/20/19 05:17 FiO2 28.0 11/20/19 05:17 Blood Gas Comments Henry well ae 11/20/19 05:17 Sodium 143 mmol/L (136-145) 11/20/19 05:35 Corrected Sodium TNP 11/20/19 05:35 Potassium 3.9 mmol/L (3.5-5.1) 11/20/19 05:35 Chloride 106 mmol/L (98-107) 11/20/19 05:35 Carbon Dioxide 34.2 mmol/L (21-32) H 11/20/19 05:35 BUN 5 mg/dL (7-18) L 11/20/19 05:35 Creatinine 0.86 mg/dL (0.55-1.02) 11/20/19 05:35 Est GFR (MDRD) Af Amer > 60 (>60) 11/20/19 05:35 Est GFR (MDRD) Non-Af > 60 (>60) 11/20/19 05:35 Glucose 103 mg/dL (65-99) H 11/20/19 05:35 POC Glucose (mg/dL) 95 mg/dL (65-99) 11/20/19 05:42 Calcium 8.2 mg/dL (8.5-10.1) L 11/20/19 05:35 Corrected Calcium 10.0 mg/dL (8.5-10.1) 11/20/19 05:35 Magnesium 1.9 mg/dL (1.7-2.9) 11/20/19 05:35 Total Bilirubin 0.30 mg/dL (0.2-1.0) 11/20/19 05:35 AST 21 Units/L (15-37) 11/20/19 05:35 ALT 82 Units/L (12-78) H 11/20/19 05:35 Alkaline Phosphatase 51 Units/L (46-116) 11/20/19 05:35 Total Protein 5.4 g/dL (6.4-8.2) L 11/20/19 05:35 Albumin 1.8 g/dL (3.4-5.0) L 11/20/19 05:35 Globulin 3.6 g/dL (2.5-4.5) 11/20/19 05:35 Albumin/Globulin Ratio 0.5 Ratio (1.1-2.1) L 11/20/19 05:35 Specimen Type Catherized urine 11/13/19 01:06 Urine Color Yellow (YELLOW) 11/13/19 01:06 Urine Appearance Clear (CLEAR) 11/13/19 01:06 Urine pH 5.0 (5.0 - 8.0) 11/13/19 01:06 Ur Specific [place] 1.015 (1.000-1.030) 11/13/19 01:06 Urine Protein 2+ (NEGATIVE) 11/13/19 01:06 Urine Glucose (UA) Negative (NEGATIVE) 11/13/19 01:06 Urine Ketones 2+ (NEGATIVE) 11/13/19 01:06 Urine Occult Blood 2+ (NEGATIVE) 11/13/19 01:06 Urine Nitrite Negative (NEGATIVE) 11/13/19 01:06 Urine Bilirubin Negative (NEGATIVE) 11/13/19 01:06 Urine Urobilinogen Normal (NORMAL) 11/13/19 01:06 Ur Leukocyte Esterase 3+ (NEGATIVE) 11/13/19 01:06 Urine RBC 0-2 /HPF (0-3) 11/13/19 01:06 Urine WBC Tntc /HPF (0-5) A 11/13/19 01:06 Ur Squamous Epith Cells Moderate /HPF (NEGATIVE) 11/13/19 01:06 Urine Bacteria 3+ /HPF (NEGATIVE) 11/13/19 01:06 Hyaline Casts Few /LPF (NEGATIVE) 11/13/19 01:06 Urine Mucus Few /HPF (NEGATIVE) 11/12/19 17:13 Ur Culture Indicated? Yes/culture set up 11/13/19 01:06 Miscellaneous Test Covid 19 11/15/19 10:10 Plan (1) Pneumonia due to COVID-19 virus: Status: Acute (2) Enterococcus faecalis infection: Status: Acute (3) UTI (urinary tract infection) due to Enterococcus: Status: Acute (4) Acute respiratory failure: Status: Acute Qualifiers: Respiratory failure complication: hypoxia Qualified Code(s): J96.01 - Acute respiratory failure with hypoxia (5) Sepsis: Status: Acute Qualifiers: Sepsis acute organ dysfunction status: unspecified Sepsis type: sepsis due to unspecified organism Qualified Code(s): A41.9 - Sepsis, unspecified org anism (6) Altered awareness, transient: Status: Acute (7) 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
[2019-11-20] MEDS: MAGNESIUM SULFATE 1 GRAM/100 mL PREMIX 1 GM/100 ML BAG IV PRN ×2 (18:15→22:00)
[2019-11-20] MEDS: SNACK - Diabetic Appropriate PO SCH (20:00)
[2019-11-20] MEDS: DEPAKOTE D.R. TAB PO SCH (21:29)
[2019-11-21] MEDS: LR 1000 ML IV 1,000 ML IV SCH ×3 (02:00→17:17)
[2019-11-21] MEDS: NEURONTIN CAP 300 MG PO SCH ×3 (05:56→22:11)
[2019-11-21] MEDS: ZOSYN VIAL 3.375 GRAMS 3.375 G in NS 100 ML IV + SPIKE MINIBAG* 100 ML IV SCH ×3 (05:57→22:11)
[2019-11-21 06:26] LABS: BASOPHILS % (AUTO) 0.4 % (0.2-1.0); EOSINOPHILS # (AUTO) 0.2 x10^3/uL (0.0-0.2); EOSINOPHILS % (AUTO) 4.3 % (0.9-2.9); HEMATOCRIT 26.3 % (36.0-47.0); HEMOGLOBIN 9.2 g/dL (12.0-16.0); LYMPHOCYTES # (AUTO) 1.6 X10^3/uL (1.3-2.9); LYMPHOCYTES % (AUTO) 28.4 % (21.0-51.0); MEAN CORPUSCULAR HEMOGLOBIN 32.1 pg (27.0-34.0); MEAN CORPUSCULAR VOLUME 91.6 fL (80.0-100.0); MEAN PLATELET VOLUME 7.6 fL (7.4-11.0); MONOCYTES # (AUTO) 0.4 x10^3/uL (0.3-0.8); MONOCYTES % (AUTO) 6.9 % (0.0-13.0); NEUTROPHILS # (AUTO) 3.3 x10^3/uL (2.2-4.8); PLATELET COUNT 128 X10^3/uL (150.0-450.0); RED BLOOD COUNT 2.88 X10^6/uL (3.5-5.4); RED CELL DISTRIBUTION WIDTH 14.1 % (11.6-16.5); WHITE BLOOD COUNT 5.5 X10^3/uL (3.6-10.0)
[2019-11-21 06:52] LABS: ALANINE AMINOTRANSFERASE 59 Units/L (12-78); ALBUMIN 1.7 g/dL (3.4-5.0); ALKALINE PHOSPHATASE 46 Units/L (46-116); ASPARTATE AMINO TRANSFERASE 20 Units/L (15-37); BLOOD UREA NITROGEN 4 mg/dL (7-18); CALCIUM 8.1 mg/dL (8.5-10.1); CARBON DIOXIDE 33.4 mmol/L (21-32); CHLORIDE 106 mmol/L (98-107); COR CA(FOR HYPOALB) 9.9 mg/dL (8.5-10.1); COR NA(FOR HYPERGLY) 144 mmol/L (136-145); CREATININE 0.91 mg/dL (0.55-1.02); SODIUM 143 mmol/L (136-145); TOTAL PROTEIN 5.3 g/dL (6.4-8.2); eGFR NON BLACK RACES > 60 (>60)
[2019-11-21] MEDS: MILK OF MAGNESIA PO SCH (09:42)
[2019-11-21] MEDS: LEVEMIR SC SCH (09:43)
[2019-11-21] MEDS: CYMBALTA PO SCH (09:44)
[2019-11-21] MEDS: ZINC SULFATE PO SCH (09:45)
[2019-11-21] MEDS: PLAVIX PO SCH (09:45)
[2019-11-21] MEDS: KEPPRA TAB 500 MG PO SCH ×2 (09:46→20:53)
[2019-11-21] MEDS: LOPRESSOR TAB 25 MG PO SCH ×2 (09:47→20:54)
[2019-11-21] MEDS: LEVAQUIN PREMIX IV 500 MG 500 MG/100 ML BAG IV SCH (09:48)
[2019-11-21] MEDS: PEPCID TAB 20 MG PO SCH ×2 (09:48→20:53)
[2019-11-21] MEDS: TAB-A-VITE PO SCH (09:49)
[2019-11-21] MEDS: SEROquel TAB 25 mg PO SCH (09:58)
[2019-11-21] MEDS: VITAMIN B-1 PO SCH (09:59)
[2019-11-21] MEDS: TRICOR TAB 160 MG PO SCH (09:59)
[2019-11-21] MEDS: COZAAR PO SCH (09:59)
--- NOTE | 2019-11-21 10:21 | PCM.PROG ---
Progress Note Progress Note for Day of Date of Exam: 11/21/19 Subjective Subjective: Patient seen at bedside, no overnight events. Patient is admitted for COVID-19 pneumonia and UTI. She is on 2L NC. She is alert and oriented to self, answers questions appropriately. Urine Cx showed E. Faecalis, she is currently on Levaquin and Zosyn. CXR: bibasilar airspace disease Labs: Hgb: 9.2 WBC:5.5 Plt: 128 Blood Cx neg Plan: continue current treatment with IV antibiotics, monitor AM labs, wean O2 as tolerated to keep sats > 90%. Continue aggressive pulmonary toilet, continue Vitamins. Possible discharge to alf tomorrow. Past Medical Family Social History Past Med/Fam/Surg Hx: No changes since H&P Allergies: Allergies No Known Drug Allergies Allergy (Verified 02/03/17 15:43) Review of Systems ROS: No change since H&P Vital Signs and I&O's Vital Signs: Temperature 97.9 F Pulse Rate [Left Brachial] 64 Pulse Rate [Right Radial] 80 Pulse Rate 69 Respiratory Rate 18 Blood Pressure [Right Arm] 109/67 Blood Pressure [Left Arm] 131/78 Blood Pressure 174/91 O2 Sat by Pulse Oximetry 98 Intake and Output: Intake & Output 11/18/19 11/19/19 11/20/19 11/21/19 23:59 23:59 23:59 23:59 Intake Total 3227 / 3227 2552 / 2552 2330 / 2330 570 / 570 Output Total 3450 / 3450 1850 / 1850 1225 / 1225 1000 / 1000 Balance -223 / -223 702 / 702 1105 / 1105 -430 / -430 Physical Exam Oriented: Person Eyes: Normal Ear: Normal Throat: Normal Respiratory: Generalized and Diminished Cardiovascular: Normal Auscultation: Bowel Sounds: Normal Tenderness: Normal Skin: Decreased Turgur Musculoskeletal: Normal Psychiatric: Normal Mood Description: Calm Affect: Flat Speech Pattern: Clear and Appropriate Laboratory and Diagnostics Result Diagrams: 11/21/19 05:10 11/21/19 05:10 Labs: 11/12/19 16:55 Blood Blood Culture - Final 11/12/19 16:50 Blood Blood Culture - Final 11/12/19 17:13 Urine,Catheterized Urine Culture - Final Enterococcus Faecalis Laboratory WBC 5.5 X10^3/uL (3.6-10.0) 11/21/19 05:10 RBC 2.88 X10^6/uL (3.5-5.4) L 11/21/19 05:10 Hgb 9.2 g/dL (12.0-16.0) L 11/21/19 05:10 Hct 26.3 % (36.0-47.0) L 11/21/19 05:10 MCV 91.6 fL (80.0-100.0) 11/21/19 05:10 MCH 32.1 pg (27.0-34.0) 11/21/19 05:10 MCHC 35.0 g/dL (33.0-35.0) 11/21/19 05:10 RDW 14.1 % (11.6-16.5) 11/21/19 05:10 Plt Count 128 X10^3/uL (150.0-450.0) L 11/21/19 05:10 MPV 7.6 fL (7.4-11.0) 11/21/19 05:10 Neut % (Auto) 60.0 % (42.0-75.0) 11/21/19 05:10 Lymph % (Auto) 28.4 % (21.0-51.0) 11/21/19 05:10 [place] % (Auto) 6.9 % (0.0-13.0) 11/21/19 05:10 Eos % (Auto) 4.3 % (0.9-2.9) H 11/21/19 05:10 Baso % (Auto) 0.4 % (0.2-1.0) 11/21/19 05:10 Neut # (Auto) 3.3 x10^3/uL (2.2-4.8) 11/21/19 05:10 Lymph # (Auto) 1.6 X10^3/uL (1.3-2.9) 11/21/19 05:10 [place] # (Auto) 0.4 x10^3/uL (0.3-0.8) 11/21/19 05:10 Eos # (Auto) 0.2 x10^3/uL (0.0-0.2) 11/21/19 05:10 Baso # (Auto) 0.0 X10^3/uL (0.0-0.1) 11/21/19 05:10 Absolute Nucleated RBC 0.0 /100WBC 11/21/19 05:10 D-Dimer 1000 ng/mL (0-400) H* 11/12/19 16:55 Sample Site Lb 11/20/19 05:17 ABG pH 7.510 (7.35-7.45) H 11/20/19 05:17 ABG pCO2 46.0 mmHg (35.0-45.0) H 11/20/19 05:17 ABG pO2 79.0 mmHg (80.0-100.0) L 11/20/19 05:17 ABG HCO3 36.7 mmol/L (22-26) H* 11/20/19 05:17 ABG O2 Saturation 97.0 % (90-100) 11/20/19 05:17 ABG Base Excess 12.1 mmol/L (-2.0-2.0) H 11/20/19 05:17 Arnaldo Test N/a 11/20/19 05:17 A-a Gradient 63.0 mmHg 11/20/19 05:17 FiO2 28.0 11/20/19 05:17 Blood Gas Comments Henry well ae 11/20/19 05:17 Sodium 143 mmol/L (136-145) 11/21/19 05:10 Corrected Sodium 144 mmol/L (136-145) 11/21/19 05:10 Potassium 3.7 mmol/L (3.5-5.1) 11/21/19 05:10 Chloride 106 mmol/L (98-107) 11/21/19 05:10 Carbon Dioxide 33.4 mmol/L (21-32) H 11/21/19 05:10 BUN 4 mg/dL (7-18) L 11/21/19 05:10 Creatinine 0.91 mg/dL (0.55-1.02) 11/21/19 05:10 Est GFR (MDRD) Af Amer > 60 (>60) 11/21/19 05:10 Est GFR (MDRD) Non-Af > 60 (>60) 11/21/19 05:10 Glucose 146 mg/dL (65-99) H 11/21/19 05:10 POC Glucose (mg/dL) 141 mg/dL (65-99) H 11/21/19 05:40 Calcium 8.1 mg/dL (8.5-10.1) L 11/21/19 05:10 Corrected Calcium 9.9 mg/dL (8.5-10.1) 11/21/19 05:10 Magnesium 2.4 mg/dL (1.7-2.9) 11/21/19 05:10 Total Bilirubin 0.20 mg/dL (0.2-1.0) 11/21/19 05:10 AST 20 Units/L (15-37) 11/21/19 05:10 ALT 59 Units/L (12-78) 11/21/19 05:10 Alkaline Phosphatase 46 Units/L (46-116) 11/21/19 05:10 Total Protein 5.3 g/dL (6.4-8.2) L 11/21/19 05:10 Albumin 1.7 g/dL (3.4-5.0) L 11/21/19 05:10 Globulin 3.6 g/dL (2.5-4.5) 11/21/19 05:10 Albumin/Globulin Ratio 0.5 Ratio (1.1-2.1) L 11/21/19 05:10 Specimen Type Catherized urine 11/13/19 01:06 Urine Color Yellow (YELLOW) 11/13/19 01:06 Urine Appearance Clear (CLEAR) 11/13/19 01:06 Urine pH 5.0 (5.0 - 8.0) 11/13/19 01:06 Ur Specific [place] 1.015 (1.000-1.030) 11/13/19 01:06 Urine Protein 2+ (NEGATIVE) 11/13/19 01:06 Urine Glucose (UA) Negative (NEGATIVE) 11/13/19 01:06 Urine Ketones 2+ (NEGATIVE) 11/13/19 01:06 Urine Occult Blood 2+ (NEGATIVE) 11/13/19 01:06 Urine Nitrite Negative (NEGATIVE) 11/13/19 01:06 Urine Bilirubin Negative (NEGATIVE) 11/13/19 01:06 Urine Urobilinogen Normal (NORMAL) 11/13/19 01:06 Ur Leukocyte Esterase 3+ (NEGATIVE) 11/13/19 01:06 Urine RBC 0-2 /HPF (0-3) 11/13/19 01:06 Urine WBC Tntc /HPF (0-5) A 11/13/19 01:06 Ur Squamous Epith Cells Moderate /HPF (NEGATIVE) 11/13/19 01:06 Urine Bacteria 3+ /HPF (NEGATIVE) 11/13/19 01:06 Hyaline Casts Few /LPF (NEGATIVE) 11/13/19 01:06 Urine Mucus Few /HPF (NEGATIVE) 11/12/19 17:13 Ur Culture Indicated? Yes/culture set up 11/13/19 01:06 Miscellaneous Test Covid 19 11/15/19 10:10 Plan (1) Pneumonia due to COVID-19 virus: Status: Acute (2) Enterococcus faecalis infection: Status: Acute (3) UTI (urinary tract infection) due to Enterococcus: Status: Acute (4) Acute respiratory failure: Status: Acute Qualifiers: Respiratory failure complication: hypoxia Qualified Code(s): J96.01 - Acute respiratory failure with hypoxia (5) Sepsis: Status: Acute Qualifiers: Sepsis acute organ dysfunction status: unspecified Sepsis type: sepsis due to unspecified organism Qualified Code(s): A41.9 - Sepsis, unspecified organism (6) Altered awareness, transient: Status: Acute (7) 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
[2019-11-21] MEDS: PULMICORT NEB TX 0.5 MG NEB SCH ×2 (10:30→20:50)
[2019-11-21] MEDS: PROVENTIL NEB TX 0.083% 2.5MG/ 3ML NEB SCH ×2 (10:30→20:50)
[2019-11-21] MEDS: HumuLIN R SUBCUT PRN ×2 (12:57→17:17)
[2019-11-21] MEDS: SNACK - Diabetic Appropriate PO SCH (20:52)
[2019-11-21] MEDS: DEPAKOTE D.R. TAB PO SCH (20:54)
[2019-11-22] MEDS: LR 1000 ML IV 1,000 ML IV SCH (03:33)
[2019-11-22] MEDS: NEURONTIN CAP 300 MG PO SCH ×2 (05:22→15:15)
[2019-11-22] MEDS: ZOSYN VIAL 3.375 GRAMS 3.375 G in NS 100 ML IV + SPIKE MINIBAG* 100 ML IV SCH ×2 (05:23→15:16)
[2019-11-22 06:09] LABS: ALANINE AMINOTRANSFERASE 50 Units/L (12-78); ALKALINE PHOSPHATASE 41 Units/L (46-116); ASPARTATE AMINO TRANSFERASE 19 Units/L (15-37); BLOOD UREA NITROGEN 4 mg/dL (7-18); CALCIUM 8.6 mg/dL (8.5-10.1); CARBON DIOXIDE 33.7 mmol/L (21-32); CHLORIDE 108 mmol/L (98-107); COR CA(FOR HYPOALB) 10.2 mg/dL (8.5-10.1); COR NA(FOR HYPERGLY) 145 mmol/L (136-145); CREATININE 0.97 mg/dL (0.55-1.02); SODIUM 144 mmol/L (136-145); TOTAL PROTEIN 5.9 g/dL (6.4-8.2); eGFR NON BLACK RACES > 60 (>60)
[2019-11-22 06:19] LABS: BASOPHILS % (AUTO) 0.5 % (0.2-1.0); EOSINOPHILS # (AUTO) 0.2 x10^3/uL (0.0-0.2); EOSINOPHILS % (AUTO) 3.4 % (0.9-2.9); HEMATOCRIT 29.6 % (36.0-47.0); HEMOGLOBIN 10.2 g/dL (12.0-16.0); LYMPHOCYTES # (AUTO) 1.5 X10^3/uL (1.3-2.9); LYMPHOCYTES % (AUTO) 22.6 % (21.0-51.0); MEAN CORPUSCULAR HEMOGLOBIN 31.6 pg (27.0-34.0); MEAN CORPUSCULAR HGB CONC 34.4 g/dL (33.0-35.0); MEAN CORPUSCULAR VOLUME 91.9 fL (80.0-100.0); MEAN PLATELET VOLUME 6.9 fL (7.4-11.0); MONOCYTES # (AUTO) 0.4 x10^3/uL (0.3-0.8); MONOCYTES % (AUTO) 5.4 % (0.0-13.0); NEUTROPHILS # (AUTO) 4.5 x10^3/uL (2.2-4.8); NEUTROPHILS % (AUTO) 68.1 % (42.0-75.0); PLATELET COUNT 151 X10^3/uL (150.0-450.0); RED BLOOD COUNT 3.22 X10^6/uL (3.5-5.4); WHITE BLOOD COUNT 6.6 X10^3/uL (3.6-10.0)
[2019-11-22] MEDS: PROVENTIL NEB TX 0.083% 2.5MG/ 3ML NEB SCH (09:10)
[2019-11-22] MEDS: PULMICORT NEB TX 0.5 MG NEB SCH (09:10)
[2019-11-22] MEDS: TRICOR TAB 160 MG PO SCH (10:44)
[2019-11-22] MEDS: COZAAR PO SCH (10:44)
[2019-11-22] MEDS: VITAMIN B-1 PO SCH (10:45)
[2019-11-22] MEDS: PEPCID TAB 20 MG PO SCH (10:45)
[2019-11-22] MEDS: TAB-A-VITE PO SCH (10:45)
[2019-11-22] MEDS: KEPPRA TAB 500 MG PO SCH (10:46)
[2019-11-22] MEDS: ZINC SULFATE PO SCH (10:46)
[2019-11-22] MEDS: LOPRESSOR TAB 25 MG PO SCH (10:47)
[2019-11-22] MEDS: CYMBALTA PO SCH (10:47)
[2019-11-22] MEDS: SEROquel TAB 25 mg PO SCH (10:47)
[2019-11-22] MEDS: LEVAQUIN PREMIX IV 500 MG 500 MG/100 ML BAG IV SCH (10:48)
[2019-11-22] MEDS: PLAVIX PO SCH (10:48)
[2019-11-22] MEDS: LEVEMIR SC SCH (10:49)
--- NOTE | 2019-11-22 13:40 | RAD ---
HISTORYPNEUMONIASTUDYCHEST, 1 [id number] view of the chestFINDINGSRight chest wall port with tip in good position. Stable cardiomegaly. Post median sternotomy. Accounting for differences in patient rotation, no significant change in bilateral predominantly perihilar and bibasilar airspace disease. Suspect small pleural effusions. No pneumothorax.IMPRESSIONNo significant change.Electronically signed by: Kvng Haynes (Nov 22, 2019 13:40:09)
[2019-11-22] MEDS: MILK OF MAGNESIA PO SCH (13:47)
[2019-11-22 16:06] VITALS: BP 136/64
--- NOTE | 2020-01-17 16:54 | DR.FEVERAD ---
HPI Time seen Time Seen by Provider: 11/12/19 16:08 PCP Primary Care Physician: SHERIDAN Complaints/Symptoms Chief Complaint:: PATIENT BROUGHT FROM [facility]. [facility] STATED THAT PATIENT WAS COVID POSITIVE 3 WEEKS AGO. YESTERDAY SHE STARTED RUNNING A FEVER AND WOULD NOT RESPOND TO THEM. PATIENT WAS GIVING TYLENOL AND FEVER BROKE SHE STARTED RESPONDING AFTER FEVER BROKE THEN THIS AFTER SHE STARTED BACK RUNNING FEVER AND WILL NOT RESPOND AGAIN. COVID-19 Coronavirus risk:travel/contact w/high risk person: Yes Has patient experienced Coronavirus symptoms: Yes Coronavirus symptoms experienced: Fever Source History Provided: [facility] Mode of Arrival Mode of Arrival: Stretcher Timing Onset of Chief Complaint: 11/11/19 PMH PMH Past Medical History: Yes Past Medical History: Anxiety, COPD, Coronary Artery Disease, CVA, Dementia, Depression, Diabetes, Dyslipidemia, GERD, Hypertension, NM and Seizures Past Surgical History: Yes Surgical History: CABG/Valve Surgery, Cholecystectomy and Ortho Surgery Family History History of Family Medical Conditions: Yes Family Medical History: Hypertension Social History Does patient currently use any type of tobacco product: No Have you used tobacco products in the last 12 months: No Type of Tobacco Use: None Alcohol Use: None Do you use any recreational Drugs:: No Lives With: Other Lives Where: [facility] Travel Risk Coronavirus risk:travel/contact w/high risk person: Yes Has patient experienced Coronavirus symptoms: Yes Coronavirus symptoms experienced: Fever Infectious screening Have you traveled outside the country in the last 6 months?: No Isolation: Droplet ROS Review of Systems Constitutional: Chills, Fever and Malaise Eyes: No Symptoms Reported ENTM: No Symptoms Reported Respiratoy: No Symptoms Reported Cardiovascular: No Symptoms Reported Gastrointestinal/Abdominal: No Symptoms Reported Genitourinary: No Symptoms Reported Neurological: See HPI Musculoskeletal: No Symptoms Reported Hematologic/Lymphatic: No Symptoms Reported All Other Systems: Reviewed and Negative PE Vital Signs Vitals: Temperature 102.1 F Pulse Rate [Right Radial] 118 Pulse Rate 116 Respiratory Rate 18 Blood Pressure [Right Arm] 129/65 Blood Pressure [Left Arm] 154/86 Blood Pressure 132/61 O2 Sat by Pulse Oximetry 92 General Limitations: Altered Mental Status General Appearance: Obtunded Head Head Exam: Normal Inspection, Atraumatic and Normocephalic Eyes Eye exam: Normal Appearance, PERRL and EOMI ENT ENT Exam: Normal Exam, Normal Oropharynx and Mucous Membranes Moist External Ear Exam: Normal External Inspection Neck Neck Exam: Normal Inspection, Full ROM and Trachea Midline; negative Meningismus and Lymphadenopathy Respiratory Respiratory Exam: Normal Lung Sounds Bilat; negative Accessory Muscle Use Respiratory Exam: Bilateral: Clear to Auscultation Abdominal Exam Abdominal Exam: Normal Inspection, Normal Bowel Sounds and Soft Extremities Extremities Exam: Normal Inspection and Full ROM; negative Tenderness Back Back Exam: Normal Inspection; negative Tenderness Neurologic Neurological Exam: Other (obtunded) Psychiatric Psychiatric Exam: Other (obtunded) Skin Skin Exam: Warm, Dry and Intact ROR Labs Reviewed Laboratory Results Reviewed?: Yes Result Diagrams: 11/22/19 05:21 11/22/19 05:21 Laboratory: 11/12/19 16:55 Blood Blood Culture - Final 11/12/19 16:50 Blood Blood Culture - Final 11/12/19 17:13 Urine,Catheterized Urine Culture - Final Enterococcus Faecalis WBC 12.8 X10^3/uL (3.6-10.0) H 11/12/19 16:55 RBC 4.74 X10^6/uL (3.5-5.4) 11/12/19 16:55 Hgb 14.8 g/dL (12.0-16.0) 11/12/19 16:55 Hct 43.7 % (36.0-47.0) 11/12/19 16:55 MCV 92.1 fL (80.0-100.0) 11/12/19 16:55 MCH 31.2 pg (27.0-34.0) 11/12/19 16:55 MCHC 33.9 g/dL (33.0-35.0) 11/12/19 16:55 RDW 14.6 % (11.6-16.5) 11/12/19 16:55 Plt Count 159 X10^3/uL (150.0-450.0) 11/12/19 16:55 MPV 8.4 fL (7.4-11.0) 11/12/19 16:55 Neut % (Auto) 74.6 % (42.0-75.0) 11/12/19 16:55 Lymph % (Auto) 19.9 % (21.0-51.0) L 11/12/19 16:55 [place] % (Auto) 5.3 % (0.0-13.0) 11/12/19 16:55 Eos % (Auto) 0.0 % (0.9-2.9) L 11/12/19 16:55 Baso % (Auto) 0.2 % (0.2-1.0) 11/12/19 16:55 Neut # (Auto) 9.5 x10^3/uL (2.2-4.8) H 11/12/19 16:55 Lymph # (Auto) 2.5 X10^3/uL (1.3-2.9) 11/12/19 16:55 [place] # (Auto) 0.7 x10^3/uL (0.3-0.8) 11/12/19 16:55 Eos # (Auto) 0.0 x10^3/uL (0.0-0.2) 11/12/19 16:55 Baso # (Auto) 0.0 X10^3/uL (0.0-0.1) 11/12/19 16:55 Absolute Nucleated RBC 0.1 /100WBC 11/12/19 16:55 D-Dimer 1000 ng/mL (0-400) H* 11/12/19 16:55 Sodium 148 mmol/L (136-145) H 11/12/19 16:55 Corrected Sodium 151 mmol/L (136-145) H 11/12/19 16:55 Potassium 3.8 mmol/L (3.5-5.1) 11/12/19 16:55 Chloride 109 mmol/L (98-107) H 11/12/19 16:55 Carbon Dioxide 26.5 mmol/L (21-32) 11/12/19 16:55 BUN 58 mg/dL (7-18) H 11/12/19 16:55 Creatinine 1.81 mg/dL (0.55-1.02) H 11/12/19 16:55 Est GFR (MDRD) Af Amer 36 (>60) L 11/12/19 16:55 Est GFR (MDRD) Non-Af 30 (>60) L 11/12/19 16:55 Glucose 205 mg/dL (65-99) H 11/12/19 16:55 Calcium 9.9 mg/dL (8.5-10.1) 11/12/19 16:55 Corrected Calcium 10.6 mg/dL (8.5-10.1) H 11/12/19 16:55 Total Bilirubin 0.60 mg/dL (0.2-1.0) 11/12/19 16:55 AST 35 Units/L (15-37) 11/12/19 16:55 ALT 43 Units/L (12-78) 11/12/19 16:55 Alkaline Phosphatase 57 Units/L (46-116) 11/12/19 16:55 Total Protein 7.9 g/dL (6.4-8.2) 11/12/19 16:55 Albumin 3.1 g/dL (3.4-5.0) L 11/12/19 16:55 Globulin 4.8 g/dL (2.5-4.5) H 11/12/19 16:55 Albumin/Globulin Ratio 0.6 Ratio (1.1-2.1) L 11/12/19 16:55 Specimen Type Catherized urine 11/12/19 17:13 Urine Color Yellow (YELLOW) 11/12/19 17:13 Urine Appearance Hazy (CLEAR) 11/12/19 17:13 Urine pH 5.0 (5.0 - 8.0) 11/12/19 17:13 Ur Specific [place] 1.020 (1.000-1.030) 11/12/19 17:13 Urine Protein 2+ (NEGATIVE) 11/12/19 17:13 Urine Glucose (UA) Negative (NEGATIVE) 11/12/19 17:13 Urine Ketones 1+ (NEGATIVE) 11/12/19 17:13 Urine Occult Blood 2+ (NEGATIVE) 11/12/19 17:13 Urine Nitrite Negative (NEGATIVE) 11/12/19 17:13 Urine Bilirubin Negative (NEGATIVE) 11/12/19 17:13 Urine Urobilinogen Normal (NORMAL) 11/12/19 17:13 Ur Leukocyte Esterase 1+ (NEGATIVE) 11/12/19 17:13 Urine RBC 0-2 /HPF (0-3) 11/12/19 17:13 Urine WBC 5-10 /HPF (0-5) A 11/12/19 17:13 Ur Squamous Epith Cells Negative /HPF (NEGATIVE) 11/12/19 17:13 Urine Bacteria 3+ /HPF (NEGATIVE) 11/12/19 17:13 Hyaline Casts Few /LPF (NEGATIVE) 11/12/19 17:13 Urine Mucus Few /HPF (NEGATIVE) 11/12/19 17:13 Ur Culture Indicated? Yes/culture set up 11/12/19 17:13 XRAY XRAY Interpreted by: Radiologist X-ray Results: rught lung opacities Opioid Opioid Risk Tool Age (Emre box if 16-45): No History of Preadolescent Sexual Abuse: No Total: 0 Total Score Risk Category: Low Risk Copyright: Omer FITZPATRICK predicting aberrant behaviors Diagnosis Discharge Problem: Pneumonitis
== END 2019-11-22 05:00 | DRG 177 ==
LOC: ER 15:48 → MED/SURG 17:56
PROVIDERS: ADMIT Obstetrics & Gynecology Obstetrics; ATTEND Internal Medicine

== ENCOUNTER 2020-04-08 11:22 | Inpatient (IN) ==
--- NOTE | 2020-04-08 11:47 | DR.AMS ---
HPI - Time Seen Time seen: 11:41 - PCP Primary Care Physician: SHERIDAN - Complaint Cheif Complaint Doctors Comments: [facility] for increased lethargy, vomiting and having a recently diagnosed UTI. Patient started on Mac robid per penitentiary staff. Patient responds to pain but is lethargic and not responding to verbal stimuli. Chief Complaint:: [facility] STATES PT HAS BEEN "SICK" SINCE HEATHER. PT HAS BEEN INCREASED LETHARGY, VOMITING, RUNNING FEVER, AND CHEST CONGESTION. [facility] STAFF STATES PT WAS DIAGNOSED WITH UTI YESTERDAY AND WAS STARTED ON MACROBID. - COVID-19 Has patient experienced Coronavirus symptoms: Yes Coronavirus symptoms experienced: Fever - Reviewed Nurses Notes Reviewed: Yes - Source History Provided: [facility] - Mode of Arrival Mode of Arrival: Stretcher - Timing Onset of Chief Complaint: 03/30/20 Came On: Gradually Symptoms: Worsening Symptom Onset: Unknown - Duration Duration: Constant How lon Duration: Days - Quality Quality: Decreased Alertness, Change in Behavior - Severity Severity: Unable to care for self - Context Recent: Fever, Urinary Symptoms - Associated Signs and Symptoms Associated Signs and Symptoms: Change in Behavior, Decreased LOC, Decreased Oral Intake PMH - PMH Past Medical History: Yes Past Medical History: [place], Coronary Artery Disease, Hypertension, Dyslipidemia, Diabetes, Dementia, Depression, Anxiety, CVA, Seizures, COPD, GERD Past Surgical History: Yes Surgical History: CABG/Valve Surgery, Cholecystectomy, Ortho Surgery - Family History History of Family Medical Conditions: Yes Family Medical History: Hypertension - Social History Do you use any recreational Drugs:: No Lives With: Other Lives Where: [facility] - Travel Risk Coronavirus risk:travel/contact w/high risk person: No Has patient experienced Coronavirus symptoms: Yes Coronavirus symptoms experienced: Fever - infectious screening In the last 2 months have you had wt loss of >10#?: NO Have you had fever, night sweats or hemotysis?: No Have you traveled outside the country in the last 6 months?: No Isolation: Droplet ROS - Review of Systems Constitutional: No Symptoms Reported, Fever, Loss of Appetite Eyes: No Symptoms Reported ENTM: No Symptoms Reported Respiratoy: No Symptoms Reported Cardiovascular: No Symptoms Reported. negative: See HPI, Chest Pain, Edema, Palpitations, Syncope, Cyanosis, Skin Mottling, Other Gastrointestinal/Abdominal: No Symptoms Reported, Nausea Genitourinary: No Symptoms Reported Neurological: No Symptoms Reported Musculoskeletal: No Symptoms Reported Integumentary: No Symptoms Reported Hematologic/Lymphatic: No Symptoms Reported Endocrine: No Symptoms Reported Psychiatric: No Symptoms Reported PE - General Limitations: Altered Mental Status General Appearance: Lethargic, In Distress (severe) - Head Head Exam: Normal Inspection, Atraumatic, Normocephalic Head Exam Physical: negative: Laceration, Abrasion, Contusion, Hematoma, Raccoon Eyes, De Dios's Sign, Tenderness of Temporal Artery, CSF Rhinorrhea, CSF Otorrhea, Other - Eyes Eye exam: Normal Appearance, PERRL, EOMI. negative: Scleral Icterus, Conj unctival Injection, Nystagmus, Miosis, Mydrasis, Periorbital Swelling, Periorbital Tenderness, Other Pupils: Irregular: Left (eyelid adharrent), Reactive: Bilateral - ENT ENT Exam: Normal Exam, Normal Oropharynx, Normal External Ear Exam, Mucous Membranes Moist, TM's Normal Bilaterally (multiple dental caries) External Ear Exam: Normal External Inspection TM/Canal Exam: Bilateral Normal Nose Exam: Normal Nose Exam Mouth Exam: Normal Inspection. negative: Drooling, Trismus, Lip Swelling, Tongue Elevation, Tongue Swelling, Laceration, Other Throat Exam: Normal Inspection - Neck Neck Exam: Normal Inspection, Full ROM, Trachea Midline - Chest Chest Inspection: Normal Inspection, Symmetric Chest Wall Rise - Respiratory Respiratory Exam: Prolonged Expiratory Phase Respiratory Exam: Bilateral Rales, Bilateral Rhonchi - Cardiovascular Cardiovascular Exam: Regular Rate, Normal Rhythm, Normal Heart Sounds, Systolic Murmur - Abdominal Exam Abdominal Exam: Normal Inspection, Normal Bowel Sounds, Soft Abdominal Tenderness: negative: RUQ, RLQ, LUQ, LLQ, Epigastrium, Suprapubic, Diffuse, Mild, Moderate, Severe, Other - Extremities Extremities Exam: Normal Capillary Refill. 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 negative: Tenderness, (R) CVA Tenderness, (L) CVA Tenderness, Muscle Spasm, Paraspinal Tenderness, Vertebral Tenderness, Rashes, (R) Sciatic Notch Tenderness, (L) Sciatic Notch Tendern, (R) Straight Leg Raise, (L) Straight Leg Raise, Other - Neurological Neurological Exam: Reflexes Normal. negative: Alert, Oriented X3 (lethargic ), Normal Gait (gait not tested) Patient Oriented To: negative: Person (patient unresponsive to verbal stimulus) Speech: negative: Total Aphasia (patient non-responsive) Cranial Nerve Exam: EOM Function (II, III, IV, ): Normal Cerebellar Function: negative: Normal Gait (gait not tested) Upper Motor Neuron Exam: Babinski Sign: Normal (right foot partia amputation; left amputated) - Psychological Psychiatric Exam: negative: Normal Affect (patient unresponsive to verbal stimuli) Expanded Psychiatric Exam: Poor Eye Contact - Skin Skin Exam: Warm, Dry, Intact, Normal Color - Vitals Vital Signs: Temp Pulse Resp BP BP Pulse Ox 04/08/20 15:30 101 H 76 H 180/91 96 04/08/20 15:20 101 H 91 H 190/94 96 04/08/20 15:15 100 H 96 04/08/20 15:10 100 H 186/97 97 04/08/20 15:00 99 H 198/95 97 04/08/20 14:50 99 H 191/93 97 04/08/20 14:45 99 H 96 04/08/20 14:40 97 H 184/89 96 04/08/20 14:30 97 H 182/88 97 04/08/20 14:20 96 H 195/96 97 04/08/20 14:16 96 H 97 04/08/20 14:10 95 H 187/95 97 04/08/20 14:00 94 H 186/96 97 04/08/20 13:50 93 H 49 H 168/92 96 04/08/20 13:45 93 H 49 H 97 04/08/20 13:40 93 H 82 H 165/91 97 04/08/20 13:30 93 H 77 H 175/87 97 04/08/20 13:20 90 53 H 171/88 97 04/08/20 13:15 90 94 H 97 04/08/20 13:10 88 55 H 162/86 96 04/08/20 13:01 86 74 H 141/75 95 04/08/20 13:00 86 92 H 95 04/08/20 12:51 124 H 81 H 198/94 96 04/08/20 12:50 126 H 82 H 221/111 04/08/20 12:45 126 H 89 H 04/08/20 12:40 127 H 94 H 223/114 04/08/20 12:30 124 H 95 H 216/116 04/08/20 12:26 126 H 46 H 214/109 04/08/20 12:15 125 H 93 H 04/08/20 12:02 123 H 63 H 04/08/20 11:24 102.3 F H 122 H 40 H 209/109 93 L 11/22/19 16:00 136/64 Course - Consultation Called: 15:38 Call Returned: 15:38 (Dr. Luna to admit) - Education/Counseling Education/Counseling: Patient Educated On: Treatment, Diagnosis, Needs for Follow Up ROR - Labs Reviewed Laboratory Results Reviewed?: Yes (All labs and x-ray results reviewed ) Result Diagrams: 04/08/20 12:05 04/08/20 12:05 - XRAY XRAY Interpreted by: Radiologist (CXR: No definite interval change or acute abnormality demonstrated) - EKG Rate: 126 [place]: Normal Rhythm: ST Block: None Hypertrophy: LVH ST: Nonsp - Labs Reviewed Laboratory: WBC 8.7 X10^3/uL (3.6-10.0) 04/08/20 12:05 RBC 4.64 X10^6/uL (3.5-5.4) 04/08/20 12:05 Hgb 14.1 g/dL (12.0-16.0) 04/08/20 12:05 Hct 42.9 % (36.0-47.0) 04/08/20 12:05 MCV 92.5 fL (80.0-100.0) 04/08/20 12:05 MCH 30.4 pg (27.0-34.0) 04/08/20 12:05 MCHC 32.9 g/dL (33.0-35.0) L 04/08/20 12:05 RDW 15.3 % (11.6-16.5) 04/08/20 12:05 Plt Count 159 X10^3/uL (150.0-450.0) 04/08/20 12:05 MPV 8.3 fL (7.4-11.0) 04/08/20 12:05 Neut % (Auto) 84.8 % (42.0-75.0) H 04/08/20 12:05 Lymph % (Auto) 11.9 % (21.0-51.0) L 04/08/20 12:05 [place] % (Auto) 3.0 % (0.0-13.0) 04/08/20 12:05 Eos % (Auto) 0.0 % (0.9-2.9) L 04/08/20 12:05 Baso % (Auto) 0.3 % (0.2-1.0) 04/08/20 12:05 Neut # (Auto) 7.4 x10^3/uL (2.2-4.8) H 04/08/20 12:05 Lymph # (Auto) 1.0 X10^3/uL (1.3-2.9) L 04/08/20 12:05 [place] # (Auto) 0.3 x10^3/uL (0.3-0.8) 04/08/20 12:05 Eos # (Auto) 0.0 x10^3/uL (0.0-0.2) 04/08/20 12:05 Baso # (Auto) 0.0 X10^3/uL (0.0-0.1) 04/08/20 12:05 Absolute Nucleated RBC 0.0 /100WBC 04/08/20 12:05 PT 14.9 SECONDS (11.8-14.3) 04/08/20 12:05 INR Target Range - 04/08/20 12:05 INR 1.21 (0.8-1.3) 04/08/20 12:05 APTT 24.2 SECONDS (22.9-36.5) 04/08/20 12:05 PTT Comment - 04/08/20 12:05 Sample Site Rb 04/08/20 13:51 ABG pH 7.420 (7.35-7.45) 04/08/20 13:51 ABG pCO2 38.0 mmHg (35.0-45.0) 04/08/20 13:51 ABG pO2 85.0 mmHg (80.0-100.0) 04/08/20 13:51 ABG HCO3 24.6 mmol/L (22-26) 04/08/20 13:51 ABG O2 Saturation 97.0 % (90-100) 04/08/20 13:51 ABG Base Excess 0.3 mmol/L (-2.0-2.0) 04/08/20 13:51 Arnaldo Test Na 04/08/20 13:51 A-a Gradient 67.0 mmHg 04/08/20 13:51 FiO2 28.0 04/08/20 13:51 Blood Gas Comments [facility] cb 04/08/20 13:51 Sodium 149 mmol/L (136-145) H 04/08/20 12:05 Corrected Sodium 156 mmol/L (136-145) H 04/08/20 12:05 Potassium 4.3 mmol/L (3.5-5.1) 04/08/20 12:05 Chloride 109 mmol/L (98-107) H 04/08/20 12:05 Carbon Dioxide 23.2 mmol/L (21-32) 04/08/20 12:05 BUN 70 mg/dL (7-18) H 04/08/20 12:05 Creatinine 2.64 mg/dL (0.55-1.02) H 04/08/20 12:05 Est GFR (MDRD) Af Amer 23 (>60) L 04/08/20 12:05 Est GFR (MDRD) Non-Af 19 (>60) L 04/08/20 12:05 Glucose 393 mg/dL (65-99) H 04/08/20 12:05 Lactic Acid 2.1 mmol/L (0.4-2.0) H 04/08/20 12:05 Calcium 9.6 mg/dL (8.5-10.1) 04/08/20 12:05 Corrected Calcium 10.8 mg/dL (8.5-10.1) H 04/08/20 12:05 Magnesium 2.9 mg/dL (1.7-2.9) 04/08/20 12:05 Total Bilirubin 0.50 mg/dL (0.2-1.0) 04/08/20 12:05 AST 163 Units/L (15-37) H 04/08/20 12:05 ALT 106 Units/L (12-78) H 04/08/20 12:05 Alkaline Phosphatase 81 Units/L (46-116) 04/08/20 12:05 Creatine Kinase 85 Units/L (26-192) 04/08/20 12:05 CK-MB (CK-2) < 1.0 ng/mL (0-4.0) 04/08/20 12:05 CK/CKMB % Calc 1.2 % (<4) 04/08/20 12:05 Troponin I 0.07 ng/mL (0-1.5) 04/08/20 12:05 Total Protein 8.0 g/dL (6.4-8.2) 04/08/20 12:05 Albumin 2.5 g/dL (3.4-5.0) L 04/08/20 12:05 Globulin 5.5 g/dL (2.5-4.5) H 04/08/20 12:05 Albumin/Globulin Ratio 0.5 Ratio (1.1-2.1) L 04/08/20 12:05 Specimen Type Catherized urine 04/08/20 12:28 Urine Color Yellow (YELLOW) 04/08/20 12:28 Urine Appearance Cloudy (CLEAR) 04/08/20 12:28 Urine pH 6.0 (5.0 - 8.0) 04/08/20 12:28 Ur Specific [place] 1.015 (1.000-1.030) 04/08/20 12:28 Urine Protein 3+ (NEGATIVE) 04/08/20 12:28 Urine Glucose (UA) 4+ (NEGATIVE) 04/08/20 12:28 Urine Ketones 3+ (NEGATIVE) 04/08/20 12:28 Urine Occult Blood 5+ (NEGATIVE) 04/08/20 12:28 Urine Nitrite Negative (NEGATIVE) 04/08/20 12:28 Urine Bilirubin Negative (NEGATIVE) 04/08/20 12:28 Urine Urobilinogen Normal (NORMAL) 04/08/20 12:28 Ur Leukocyte Esterase 3+ (NEGATIVE) 04/08/20 12:28 Urine RBC 10-20 /HPF (0-3) A 04/08/20 12:28 Urine WBC Tntc /HPF (0-5) A 04/08/20 12:28 Ur Squamous Epith Cells Negative /HPF (NEGATIVE) 04/08/20 12:28 Amorphous Sediment 2+ /HPF (NEGATIVE) 04/08/20 12:28 Urine Bacteria 2+ /HPF (NEGATIVE) 04/08/20 12:28 Urine Mucus Few /HPF (NEGATIVE) 04/08/20 12:28 Ur Culture Indicated? Yes/culture set up 04/08/20 12:28 SARS CoV-2 RNA Rapid ALYSE Negative (NEGATIVE) 04/08/20 13:16 Opioid - Opioid Risk Tool Age (Emre box if 16-45): No History of Preadolescent Sexual Abuse: No Total: 0 Total Score Risk Category: Low Risk - Diagnosis Discharge Problem: Accelerated hypertension Acute renal failure (ARF) Qualifiers: Acute renal failure type: unspecified Qualified Code(s): N17.9 - Acute kidney failure, unspecified UTI (urinary tract infection) Qualifiers: Urinary tract infection type: acute cystitis Hematuria presence: without hematuria Qualified Code(s): N30.00 - Acute cystitis without hematuria Diabetes mellitus type II, uncontrolled Qualifiers: Glycemic state: with hyperglycemia Qualified Code(s): E11.65 - Type 2 diabetes mellitus with hyperglycemia - Discharge Plan Disposition: ADMITTED INPATIENT Condition: Stable - Follow ups/Referrals Follow ups/Referrals: ROD SWARTZ [Primary Care Provider] - 3 days - Instructions
[2020-04-08] MEDS ORDERED: ROCEPHIN VIAL 1 GRAM 1 G in NS 100 ML IV + SPIKE MINIBAG* 100 ML IV ONE (11:50)
[2020-04-08] MEDS ORDERED: LASIX IVP ONE ×2 (12:03→12:06)
[2020-04-08] MEDS ORDERED: NS 1000 ML 1,000 ML ONE (12:06)
[2020-04-08] MEDS ORDERED: ROCEPHIN 1 GRAM IV PREMIX 1 G/50 ML IV.SOLN. IV ONE (12:07)
[2020-04-08 12:23] LABS: BASOPHILS % (AUTO) 0.3 % (0.2-1.0); HEMATOCRIT 42.9 % (36.0-47.0); HEMOGLOBIN 14.1 g/dL (12.0-16.0); LYMPHOCYTES % (AUTO) 11.9 % (21.0-51.0); MEAN CORPUSCULAR HEMOGLOBIN 30.4 pg (27.0-34.0); MEAN CORPUSCULAR HGB CONC 32.9 g/dL (33.0-35.0); MEAN CORPUSCULAR VOLUME 92.5 fL (80.0-100.0); MEAN PLATELET VOLUME 8.3 fL (7.4-11.0); MONOCYTES # (AUTO) 0.3 x10^3/uL (0.3-0.8); NEUTROPHILS # (AUTO) 7.4 x10^3/uL (2.2-4.8); NEUTROPHILS % (AUTO) 84.8 % (42.0-75.0); PLATELET COUNT 159 X10^3/uL (150.0-450.0); RED BLOOD COUNT 4.64 X10^6/uL (3.5-5.4); RED CELL DISTRIBUTION WIDTH 15.3 % (11.6-16.5); WHITE BLOOD COUNT 8.7 X10^3/uL (3.6-10.0)
[2020-04-08] MEDS: NS 1000 ML 1,000 ML IV SCH ×2 (12:29→17:26)
[2020-04-08 12:36] LABS: BILIRUBIN,URINE NEGATIVE (NEGATIVE); BLOOD/HEMOGLOBIN,URINE 5+ (NEGATIVE); GLUCOSE, URINE 4+ (NEGATIVE); KETONES,URINE 3+ (NEGATIVE); LEUKOCYTE ESTERASE ,URINE 3+ (NEGATIVE); NITRITES,URINE NEGATIVE (NEGATIVE); PROTEIN,URINE 3+ (NEGATIVE); UROBILINOGEN,URINE NORMAL (NORMAL)
[2020-04-08 12:38] LABS: BLOOD UREA NITROGEN 70 mg/dL (7-18); CALCIUM 9.6 mg/dL (8.5-10.1); CARBON DIOXIDE 23.2 mmol/L (21-32); CHLORIDE 109 mmol/L (98-107); COR NA(FOR HYPERGLY) 156 mmol/L (136-145); CREATININE 2.64 mg/dL (0.55-1.02); SODIUM 149 mmol/L (136-145); TROPONIN I 0.07 ng/mL (0-1.5); eGFR NON BLACK RACES 19 (>60)
--- NOTE | 2020-04-08 12:41 | RAD ---
HISTORYChest painSTUDYPortable AP [id number]-stable heart size with sternal wires. There is no definite pu lmonary infiltrate or consolidation. Evaluation limited by marked patient rotation. Stable position o f right subclavian injection port. Blunting of the left costophrenic angle may be related to rotation artifact.IMPRESSIONNo definite interval change or acute abnormality demonstrated.Electronically sign ed by: SHAYLA MORGAN (Apr 08, 2020 12:39:17)
[2020-04-08 12:42] LABS: ALKALINE PHOSPHATASE 81 Units/L (46-116); ASPARTATE AMINO TRANSFERASE 163 Units/L (15-37); CREATINE KINASE MB < 1.0 ng/mL (0-4.0)
[2020-04-08] MEDS ORDERED: NORMODYNE INJ 20 MG VIAL ONE (12:48)
[2020-04-08] MEDS ORDERED: NORMODYNE INJ 20 MG VIAL IVP ONE (12:54)
[2020-04-08 13:05] LABS: APPEARANCE,URINE CLOUDY (CLEAR); COLOR,URINE YELLOW (YELLOW)
[2020-04-08 13:05] LABS: ALANINE AMINOTRANSFERASE 106 Units/L (12-78); ALBUMIN 2.5 g/dL (3.4-5.0); CKMB % 1.2 % (<4); COR CA(FOR HYPOALB) 10.8 mg/dL (8.5-10.1); CREATINE KINASE 85 Units/L (26-192); MAGNESIUM 2.9 mg/dL (1.7-2.9)
[2020-04-08 13:08] LABS: AMORPHOUS SEDIMENT,UR 2+ /HPF (NEGATIVE); BACTERIA,URINE 2+ /HPF (NEGATIVE); MUCUS,URINE FEW /HPF (NEGATIVE); SQUAMOUS EPITHELIAL CELL,UR NEGATIVE /HPF (NEGATIVE)
[2020-04-08 13:56] LABS: ABG BASE EXCESS 0.3 mmol/L (-2.0-2.0); ABG HCO3 24.6 mmol/L (22-26)
[2020-04-08] MEDS ORDERED: HumuLIN R IV PRN (15:40)
[2020-04-08] MEDS ORDERED: TYGACIL 50 MG VIAL 100 MG in NS 100 ML IV 100 ML IV ONE (15:51)
[2020-04-08] MEDS ORDERED: HumuLIN R ONE (15:55)
[2020-04-08 16:28] LABS: LACTIC ACID 2.2 mmol/L (0.4-2.0)
[2020-04-08 16:40] LABS: MAGNESIUM 2.9 mg/dL (1.7-2.9); PHOSPHORUS 3.6 mg/dL (2.6-4.7)
[2020-04-08] MEDS: SNACK - Diabetic Appropriate PO SCH (21:33)
[2020-04-08] MEDS: HumuLIN R SUBCUT PRN (23:35)
[2020-04-09] MEDS: NS 1000 ML 1,000 ML IV SCH ×2 (03:06→03:08)
[2020-04-09] MEDS: TYGACIL 50 MG VIAL 50 MG in NS 100 ML IV 100 ML IV SCH ×2 (04:46→16:50)
[2020-04-09] MEDS: HumuLIN R SUBCUT PRN ×4 (06:18→20:50)
[2020-04-09 06:49] LABS: BASOPHILS % (AUTO) 0.1 % (0.2-1.0); HEMATOCRIT 40.2 % (36.0-47.0); HEMOGLOBIN 13.1 g/dL (12.0-16.0); LYMPHOCYTES # (AUTO) 1.4 X10^3/uL (1.3-2.9); LYMPHOCYTES % (AUTO) 11.3 % (21.0-51.0); MEAN CORPUSCULAR HEMOGLOBIN 29.7 pg (27.0-34.0); MEAN CORPUSCULAR HGB CONC 32.6 g/dL (33.0-35.0); MEAN CORPUSCULAR VOLUME 91.2 fL (80.0-100.0); MEAN PLATELET VOLUME 8.2 fL (7.4-11.0); MONOCYTES # (AUTO) 0.8 x10^3/uL (0.3-0.8); MONOCYTES % (AUTO) 6.3 % (0.0-13.0); NEUTROPHILS # (AUTO) 10.4 x10^3/uL (2.2-4.8); NEUTROPHILS % (AUTO) 82.3 % (42.0-75.0); PLATELET COUNT 189 X10^3/uL (150.0-450.0); RED BLOOD COUNT 4.41 X10^6/uL (3.5-5.4); RED CELL DISTRIBUTION WIDTH 15.2 % (11.6-16.5); WHITE BLOOD COUNT 12.7 X10^3/uL (3.6-10.0)
[2020-04-09 07:12] LABS: ALBUMIN 2.3 g/dL (3.4-5.0); CALCIUM 9.4 mg/dL (8.5-10.1); CARBON DIOXIDE 25.6 mmol/L (21-32); COR CA(FOR HYPOALB) 10.8 mg/dL (8.5-10.1); CREATININE 2.57 mg/dL (0.55-1.02); TOTAL PROTEIN 7.3 g/dL (6.4-8.2)
[2020-04-09 07:21] LABS: LACTIC ACID 1.8 mmol/L (0.4-2.0)
[2020-04-09] MEDS ORDERED: LR 1000 ML IV 1,000 ML IV ONE (08:14)
[2020-04-09] MEDS: LR 1000 ML IV 1,000 ML IV SCH ×3 (09:47→17:35)
[2020-04-09] MEDS: SNACK - Diabetic Appropriate PO SCH (20:50)
[2020-04-10] MEDS: TYGACIL 50 MG VIAL 50 MG in NS 100 ML IV 100 ML IV SCH ×2 (03:30→15:34)
[2020-04-10] MEDS: LR 1000 ML IV 1,000 ML IV SCH ×3 (05:42→18:54)
[2020-04-10] MEDS: HumuLIN R SUBCUT PRN ×4 (05:43→22:32)
[2020-04-10 07:25] LABS: BASOPHILS % (AUTO) 0.1 % (0.2-1.0); EOSINOPHILS % (AUTO) 0.1 % (0.9-2.9); HEMATOCRIT 39.6 % (36.0-47.0); HEMOGLOBIN 13.1 g/dL (12.0-16.0); LYMPHOCYTES # (AUTO) 1.2 X10^3/uL (1.3-2.9); MEAN CORPUSCULAR HEMOGLOBIN 30.1 pg (27.0-34.0); MEAN CORPUSCULAR VOLUME 91.1 fL (80.0-100.0); MEAN PLATELET VOLUME 8.6 fL (7.4-11.0); MONOCYTES # (AUTO) 0.6 x10^3/uL (0.3-0.8); MONOCYTES % (AUTO) 3.8 % (0.0-13.0); NEUTROPHILS # (AUTO) 13.7 x10^3/uL (2.2-4.8); PLATELET COUNT 184 X10^3/uL (150.0-450.0); RED BLOOD COUNT 4.35 X10^6/uL (3.5-5.4); RED CELL DISTRIBUTION WIDTH 15.3 % (11.6-16.5); WHITE BLOOD COUNT 15.5 X10^3/uL (3.6-10.0)
[2020-04-10 07:41] LABS: ALBUMIN 2.1 g/dL (3.4-5.0); CALCIUM 9.4 mg/dL (8.5-10.1); CARBON DIOXIDE 21.8 mmol/L (21-32); COR CA(FOR HYPOALB) 10.9 mg/dL (8.5-10.1); CREATININE 1.97 mg/dL (0.55-1.02); TOTAL PROTEIN 6.7 g/dL (6.4-8.2)
[2020-04-10] MEDS: LOVENOX INJ 30 MG SYR SC SCH (08:55)
[2020-04-10] MEDS ORDERED: PHARMACY CONSULT LTC MEDICATIONS XX SCH (09:00)
--- NOTE | 2020-04-10 14:06 | RAD ---
HISTORYSOBSTUDYCHEST, 1 VIEWCOMPARISONFINDINGSThe trachea is midline. The cardiac silhouette is unremarkable. Sternotomy wires are seen from prior CABG surgery. The right lung is clear without infiltrates or effusion but there is increasing density in the left lower lobe retrocardiac region with loss of the left hemidiaphragm shadow suggesting developing infiltrate and/or effusion in the left lung base.. Right subclavian central venous port is in place. The bony thorax is unremarkable.IMPRESSIONPostsurgical chest with right subclavian port in place.Increasing radiodensity left lung base retrocardiac region consistent with developing infiltrate/atelectasis and/or effusion unchanged from the prior film April 08, 2020.Electronically signed by: MARIA DE JESUS BRICENO (Apr 10, 2020 14:04:52)
[2020-04-10] MEDS ORDERED: LOPRESSOR INJ 5 MG AMP IVP ONE (14:51)
[2020-04-10] MEDS ORDERED: LASIX IVP SCH (15:00)
[2020-04-10] MEDS: K-DUR TAB 20 MEQ PO SCH ×2 (15:35→21:40)
--- NOTE | 2020-04-10 16:16 | RAD ---
HISTORYNG TUBE PLACEMENT AR, CAD, HTN, DM. CVA, COPD. SX CABG, GBSTUDYKUBCOMPARISONAbdominal film April 06, 2020.FINDINGSEvaluation of the abdomen demonstrates a normal bowel gas pattern. NG tube is in good position with the tip in the body of the stomach. There is retained metallic wire possibly retained epicardial pacer wire medial to the NG tube. Surgical clips are seen in the right upper quadrant from cholecystectomy. No pathological soft tissue mass or calcification can be observed. The bony structures are grossly intact.IMPRESSIONNo evidence for acute abdominal pathology identified.NG tube is in good position with the tip of the NG tube in the body of the stomach.Electronically signed by: MARIA DE JESUS BRICENO (Apr 10, 2020 16:15:10)
[2020-04-10] MEDS ORDERED: APRESOLINE INJ 20 MG VIAL IVP PRN (16:40)
[2020-04-10] MEDS: LOPRESSOR TAB 25 MG PO SCH ×2 (16:50→21:41)
[2020-04-10 17:16] LABS: CALCIUM 9.5 mg/dL (8.5-10.1); CREATININE 1.79 mg/dL (0.55-1.02)
[2020-04-10 17:21] LABS: COR CA(FOR HYPOALB) 11.1 mg/dL (8.5-10.1); TOTAL PROTEIN 6.5 g/dL (6.4-8.2)
[2020-04-10] MEDS ORDERED: K-DUR TAB 20 MEQ PO PRN (19:01)
[2020-04-10] MEDS ORDERED: K-RIDER 10 MEQ/NS 100 ML 10 MEQ/100 ML BAG IV PRN (19:01)
[2020-04-10] MEDS ORDERED: POTASSIUM CHL 40 MEQ/NS 0.45% 500 ML IV PRN (19:01)
[2020-04-10] MEDS ORDERED: POTASSIUM CHL 60 MEQ/NS 0.45% 500 ML IV PRN (19:01)
[2020-04-10] MEDS ORDERED: MICRO K EXTEN CAP 10 MEQ PO PRN (19:01)
[2020-04-10] MEDS ORDERED: POTASSIUM CHLORIDE LIQ 20 MEQ UDC PO PRN (19:01)
[2020-04-10] MEDS: SEROquel TAB 25 mg PO SCH (21:38)
[2020-04-10] MEDS: SNACK - Diabetic Appropriate PO SCH (21:39)
[2020-04-10] MEDS: MAG-OX TAB PO SCH (21:40)
[2020-04-10] MEDS: KEPPRA TAB 500 MG PO SCH (21:40)
[2020-04-10] MEDS: LIPITOR TAB 20 MG PO SCH (21:40)
[2020-04-10] MEDS: KLOR-CON PO PRN (21:41)
[2020-04-11] MEDS: TYGACIL 50 MG VIAL 50 MG in NS 100 ML IV 100 ML IV SCH ×2 (03:48→16:58)
[2020-04-11] MEDS: HumuLIN R SUBCUT PRN (06:21)
[2020-04-11 06:52] LABS: ALBUMIN 1.8 g/dL (3.4-5.0); CARBON DIOXIDE 24.8 mmol/L (21-32); COR CA(FOR HYPOALB) 10.8 mg/dL (8.5-10.1); CREATININE 1.75 mg/dL (0.55-1.02)
[2020-04-11 07:15] LABS: BASOPHILS # (AUTO) 0.1 X10^3/uL (0.0-0.1); BASOPHILS % (AUTO) 0.4 % (0.2-1.0); HEMATOCRIT 37.2 % (36.0-47.0); HEMOGLOBIN 12.1 g/dL (12.0-16.0); LYMPHOCYTES # (AUTO) 1.9 X10^3/uL (1.3-2.9); MEAN CORPUSCULAR HEMOGLOBIN 29.7 pg (27.0-34.0); MEAN CORPUSCULAR HGB CONC 32.6 g/dL (33.0-35.0); MEAN CORPUSCULAR VOLUME 91.2 fL (80.0-100.0); MEAN PLATELET VOLUME 8.8 fL (7.4-11.0); MONOCYTES # (AUTO) 0.6 x10^3/uL (0.3-0.8); MONOCYTES % (AUTO) 3.4 % (0.0-13.0); NEUTROPHILS # (AUTO) 13.6 x10^3/uL (2.2-4.8); NEUTROPHILS % (AUTO) 84.2 % (42.0-75.0); PLATELET COUNT 166 X10^3/uL (150.0-450.0); RED BLOOD COUNT 4.07 X10^6/uL (3.5-5.4); RED CELL DISTRIBUTION WIDTH 15.8 % (11.6-16.5); WHITE BLOOD COUNT 16.1 X10^3/uL (3.6-10.0)
[2020-04-11] MEDS: LR 1000 ML IV 1,000 ML IV SCH ×2 (08:46→14:22)
[2020-04-11] MEDS: KEPPRA TAB 500 MG PO SCH ×2 (08:46→20:56)
[2020-04-11] MEDS: COZAAR PO SCH (08:46)
[2020-04-11] MEDS: LOVENOX INJ 30 MG SYR SC SCH (08:47)
[2020-04-11] MEDS: LOPRESSOR TAB 25 MG PO SCH ×2 (08:47→20:57)
[2020-04-11] MEDS: MAG-OX TAB PO SCH ×2 (08:48→20:57)
[2020-04-11] MEDS: PLAVIX PO SCH (08:48)
[2020-04-11] MEDS: SEROquel TAB 25 mg PO SCH (08:49)
[2020-04-11] MEDS ORDERED: WELLBUTRIN XL 150 MG (DAILY) PO SCH (09:00)
--- NOTE | 2020-04-11 09:23 | RAD ---
HISTORYCHFSTUDYCHEST, 1 [id number]/2021FINDINGSAbnormal opacity in the left lung base obscures the left hemidiaphragm. This could be atelectasis or pneumonia. Upper left lung is clear.There is vague opacity in the medial right lung probably due to patient rotation.No pneumothorax.Heart size is normal.Bones are unremarkable.The enteric tube extends into the upper abdomen. Median sternotomy wires are present. EKG leads are noted. Right subclavian central venous catheter is in the expected location of the superior vena cava. Surgical clips are present in the right upper abdomen, probably from a cholecystectomy.IMPRESSION1. Unchanged left basilar atelectasis or pneumoniaElectronically signed by: Emir Crook (Apr 11, 2020 09:21:12)
[2020-04-11 10:03] VITALS: BMI 24.7
[2020-04-11] MEDS: PROTONIX INJ 40 MG VIAL IVP SCH (13:10)
[2020-04-11] MEDS: WELLBUTRIN IR (PLAIN) PO SCH (13:10)
[2020-04-11 14:29] LABS: ALBUMIN 1.9 g/dL (3.4-5.0); CALCIUM 9.2 mg/dL (8.5-10.1); CARBON DIOXIDE 27.9 mmol/L (21-32); COR CA(FOR HYPOALB) 10.9 mg/dL (8.5-10.1); CREATININE 1.56 mg/dL (0.55-1.02); TOTAL PROTEIN 6.2 g/dL (6.4-8.2)
--- NOTE | 2020-04-11 15:31 | RAD ---
HISTORYABDOMEN PAIN CT, CAD, HTN, DM. CVA, COPD. SX CABG, GB, CHFSTUDYKUBCOMPARISONFINDINGSEvaluation of the abdomen demonstrates a normal bowel gas pattern. No p athological soft tissue mass or calcification can be observed. Vascular calcifications are seen overl isabella both kidneys. Phleboliths are seen in the pelvis. The tip of an NG tube is seen in the left uppe r quadrant. The bony structures are grossly intact.IMPRESSIONNo evidence for acute abdominal patholog y identified. NG tube is in place. Vascular calcifications are observed. No bowel distention or evide nce of obstruction are observed.Electronically signed by: MARIA DE JESUS BRICENO (Apr 11, 2020 15:30:24)
[2020-04-11] MEDS: STERILE WATER FOR INJECTION 1,000 ML with SODIUM CHL CONCENTRATE* 23.4% 34 MEQ IV SCH ×2 (19:14)
[2020-04-11] MEDS: SNACK - Diabetic Appropriate PO SCH (20:57)
[2020-04-11] MEDS: LIPITOR TAB 20 MG PO SCH (20:57)
[2020-04-12] MEDS: TYGACIL 50 MG VIAL 50 MG in NS 100 ML IV 100 ML IV SCH ×2 (04:58→15:51)
[2020-04-12] MEDS: HumuLIN R SUBCUT PRN ×3 (06:16→21:44)
[2020-04-12 06:51] LABS: BASOPHILS % (AUTO) 0.3 % (0.2-1.0); EOSINOPHILS % (AUTO) 0.1 % (0.9-2.9); HEMATOCRIT 34.8 % (36.0-47.0); HEMOGLOBIN 11.3 g/dL (12.0-16.0); LYMPHOCYTES # (AUTO) 1.9 X10^3/uL (1.3-2.9); LYMPHOCYTES % (AUTO) 11.9 % (21.0-51.0); MEAN CORPUSCULAR HEMOGLOBIN 29.7 pg (27.0-34.0); MEAN CORPUSCULAR HGB CONC 32.5 g/dL (33.0-35.0); MEAN CORPUSCULAR VOLUME 91.4 fL (80.0-100.0); MEAN PLATELET VOLUME 8.8 fL (7.4-11.0); MONOCYTES # (AUTO) 0.6 x10^3/uL (0.3-0.8); MONOCYTES % (AUTO) 3.5 % (0.0-13.0); NEUTROPHILS # (AUTO) 13.6 x10^3/uL (2.2-4.8); NEUTROPHILS % (AUTO) 84.2 % (42.0-75.0); PLATELET COUNT 180 X10^3/uL (150.0-450.0); RED BLOOD COUNT 3.81 X10^6/uL (3.5-5.4); RED CELL DISTRIBUTION WIDTH 15.4 % (11.6-16.5); WHITE BLOOD COUNT 16.1 X10^3/uL (3.6-10.0)
[2020-04-12 07:03] LABS: ALBUMIN 1.7 g/dL (3.4-5.0); CALCIUM 8.6 mg/dL (8.5-10.1); CARBON DIOXIDE 23.1 mmol/L (21-32); COR CA(FOR HYPOALB) 10.4 mg/dL (8.5-10.1); CREATININE 1.51 mg/dL (0.55-1.02); TOTAL PROTEIN 5.5 g/dL (6.4-8.2)
--- NOTE | 2020-04-12 09:51 | RAD ---
HISTORYTACHYPNEA, HX CHFSTUDYCHEST, 1 VIEWCOMPARISONPortable chest April 11, 2020FINDINGSThe trachea is midline. The cardiac silhouette is unremarkable. Postsurgical changes from CABG surgery and possible valve replacement surgery are noted. Right sided subclavian port is in place. There is persistent hazy density obscuring the left hemidiaphragm in the retrocardiac region the left lung base unchanged from April 11, 2020 film. The right lung is clear.. The bony thorax is unremarkable.IMPRESSIONNo significant change from yesterday's film with postsurgical changes and persistent hazy density either infiltrate and/or atelectasis left lung base.Electronically signed by: MARIA DE JESUS BRICENO (Apr 12, 2020 09:48:18)
[2020-04-12] MEDS: COZAAR PO SCH (10:01)
[2020-04-12] MEDS: KEPPRA TAB 500 MG PO SCH ×2 (10:01→20:25)
[2020-04-12] MEDS: WELLBUTRIN IR (PLAIN) PO SCH (10:02)
[2020-04-12] MEDS: LOPRESSOR TAB 25 MG PO SCH ×2 (10:02→20:26)
[2020-04-12] MEDS: MAG-OX TAB PO SCH ×2 (10:03→20:26)
[2020-04-12] MEDS: PLAVIX PO SCH (10:04)
[2020-04-12] MEDS: SEROquel TAB 25 mg PO SCH (10:04)
[2020-04-12] MEDS: PROTONIX INJ 40 MG VIAL IVP SCH (10:05)
[2020-04-12] MEDS: LOVENOX INJ 30 MG SYR SC SCH (10:05)
[2020-04-12] MEDS: STERILE WATER FOR INJECTION 1,000 ML with SODIUM CHL CONCENTRATE* 23.4% 34 MEQ IV SCH ×4 (11:59→20:26)
[2020-04-12] MEDS: SNACK - Diabetic Appropriate PO SCH (20:25)
[2020-04-12] MEDS: LIPITOR TAB 20 MG PO SCH (20:26)
[2020-04-13] MEDS: TYGACIL 50 MG VIAL 50 MG in NS 100 ML IV 100 ML IV SCH ×2 (03:32→16:28)
[2020-04-13 07:08] LABS: ALBUMIN 1.6 g/dL (3.4-5.0); CALCIUM 8.4 mg/dL (8.5-10.1); CARBON DIOXIDE 22.7 mmol/L (21-32); COR CA(FOR HYPOALB) 10.3 mg/dL (8.5-10.1); CREATININE 1.36 mg/dL (0.55-1.02); TOTAL PROTEIN 5.2 g/dL (6.4-8.2)
[2020-04-13 07:09] LABS: BASOPHILS % (AUTO) 0.2 % (0.2-1.0); EOSINOPHILS # (AUTO) 0.1 x10^3/uL (0.0-0.2); EOSINOPHILS % (AUTO) 0.8 % (0.9-2.9); HEMATOCRIT 33.3 % (36.0-47.0); HEMOGLOBIN 10.9 g/dL (12.0-16.0); LYMPHOCYTES # (AUTO) 2.2 X10^3/uL (1.3-2.9); LYMPHOCYTES % (AUTO) 14.7 % (21.0-51.0); MEAN CORPUSCULAR HGB CONC 32.8 g/dL (33.0-35.0); MEAN CORPUSCULAR VOLUME 91.5 fL (80.0-100.0); MEAN PLATELET VOLUME 8.8 fL (7.4-11.0); MONOCYTES # (AUTO) 0.5 x10^3/uL (0.3-0.8); NEUTROPHILS # (AUTO) 12.4 x10^3/uL (2.2-4.8); NEUTROPHILS % (AUTO) 81.3 % (42.0-75.0); PLATELET COUNT 162 X10^3/uL (150.0-450.0); RED BLOOD COUNT 3.64 X10^6/uL (3.5-5.4); RED CELL DISTRIBUTION WIDTH 15.7 % (11.6-16.5); WHITE BLOOD COUNT 15.2 X10^3/uL (3.6-10.0)
[2020-04-13] MEDS: LOPRESSOR TAB 25 MG PO SCH ×2 (08:34→23:00)
[2020-04-13] MEDS: KEPPRA TAB 500 MG PO SCH ×2 (08:34→23:00)
[2020-04-13] MEDS: COZAAR PO SCH (08:34)
[2020-04-13] MEDS: PLAVIX PO SCH (08:35)
[2020-04-13] MEDS: MAG-OX TAB PO SCH ×2 (08:35→23:00)
[2020-04-13] MEDS: PROTONIX INJ 40 MG VIAL IVP SCH (08:36)
[2020-04-13] MEDS: LOVENOX INJ 30 MG SYR SC SCH (08:36)
[2020-04-13] MEDS: SEROquel TAB 25 mg PO SCH (08:37)
[2020-04-13] MEDS: WELLBUTRIN IR (PLAIN) PO SCH (08:37)
[2020-04-13] MEDS: STERILE WATER FOR INJECTION 1,000 ML with SODIUM CHL CONCENTRATE* 23.4% 34 MEQ IV SCH ×2 (10:22)
[2020-04-13] MEDS: HumuLIN R SUBCUT PRN ×3 (13:22→21:35)
[2020-04-13] MEDS: LIPITOR TAB 20 MG PO SCH (23:00)
[2020-04-14] MEDS: SNACK - Diabetic Appropriate PO SCH (01:53)
[2020-04-14] MEDS: TYGACIL 50 MG VIAL 50 MG in NS 100 ML IV 100 ML IV SCH ×2 (04:49→15:41)
[2020-04-14 07:24] LABS: BASOPHILS % (AUTO) 0.1 % (0.2-1.0); EOSINOPHILS # (AUTO) 0.2 x10^3/uL (0.0-0.2); EOSINOPHILS % (AUTO) 1.2 % (0.9-2.9); HEMATOCRIT 33.8 % (36.0-47.0); HEMOGLOBIN 11.1 g/dL (12.0-16.0); LYMPHOCYTES # (AUTO) 3.3 X10^3/uL (1.3-2.9); LYMPHOCYTES % (AUTO) 16.8 % (21.0-51.0); MEAN CORPUSCULAR HEMOGLOBIN 29.9 pg (27.0-34.0); MEAN CORPUSCULAR VOLUME 90.6 fL (80.0-100.0); MONOCYTES # (AUTO) 0.5 x10^3/uL (0.3-0.8); MONOCYTES % (AUTO) 2.7 % (0.0-13.0); NEUTROPHILS # (AUTO) 15.8 x10^3/uL (2.2-4.8); NEUTROPHILS % (AUTO) 79.2 % (42.0-75.0); PLATELET COUNT 181 X10^3/uL (150.0-450.0); RED BLOOD COUNT 3.73 X10^6/uL (3.5-5.4); RED CELL DISTRIBUTION WIDTH 15.2 % (11.6-16.5); WHITE BLOOD COUNT 19.9 X10^3/uL (3.6-10.0)
[2020-04-14 07:43] LABS: ALANINE AMINOTRANSFERASE 22 Units/L (12-78); ALBUMIN 1.6 g/dL (3.4-5.0); ALKALINE PHOSPHATASE 101 Units/L (46-116); ASPARTATE AMINO TRANSFERASE 34 Units/L (15-37); BLOOD UREA NITROGEN 57 mg/dL (7-18); CALCIUM 8.3 mg/dL (8.5-10.1); CARBON DIOXIDE 22.6 mmol/L (21-32); COR CA(FOR HYPOALB) 10.2 mg/dL (8.5-10.1); CREATININE 1.16 mg/dL (0.55-1.02); MAGNESIUM 1.9 mg/dL (1.7-2.9); TOTAL PROTEIN 5.4 g/dL (6.4-8.2); eGFR NON BLACK RACES 50 (>60)
[2020-04-14 07:51] LABS: CHLORIDE 121 mmol/L (98-107); SODIUM 154 mmol/L (136-145)
[2020-04-14] MEDS: LOVENOX INJ 30 MG SYR SC SCH (08:45)
[2020-04-14] MEDS: COZAAR PO SCH (09:15)
[2020-04-14] MEDS: KEPPRA TAB 500 MG PO SCH ×2 (09:15→22:10)
[2020-04-14] MEDS: MAG-OX TAB PO SCH ×2 (09:16→22:10)
[2020-04-14] MEDS: LOPRESSOR TAB 25 MG PO SCH ×2 (09:16→22:10)
[2020-04-14] MEDS: SEROquel TAB 25 mg PO SCH (09:16)
[2020-04-14] MEDS: WELLBUTRIN IR (PLAIN) PO SCH (09:17)
[2020-04-14] MEDS: PROTONIX INJ 40 MG VIAL IVP SCH (09:17)
[2020-04-14] MEDS: PLAVIX PO SCH (09:45)
[2020-04-14] MEDS: STERILE WATER FOR INJECTION 1,000 ML with SODIUM CHL CONCENTRATE* 23.4% 34 MEQ IV SCH ×2 (13:06)
--- NOTE | 2020-04-14 14:06 | RAD ---
HISTORYDOESTUDYCHEST, 1 VIEWCOMPARISONPortable chest April 12, 2020FINDINGSThe trachea is midline. The cardiac silhouette is unremarkable. There are sternotomy wires and surgical clips from CABG surgery. In NG tube is in place with the tip in good position. A right subclavian port is in good position in the superior vena cava. The infiltrate in the left lower lobe retrocardiac region shows improvement compared to yesterday study but increase in interstitial markings are seen medially in the right lung base compared to yesterdays study. The bony thorax is unremarkable.IMPRESSIONImprovement in the infiltrate in the left lung base compared to yesterdays study but new or increased interstitial markings right lung base compared to yesterday's exam.NG tube and right subclavian port in good position.Postsurgical changes from CABG surgery.Electronically signed by: MARIA DE JESUS BRICENO (Apr 14, 2020 14:04:40)
[2020-04-14] MEDS: KLOR-CON PO PRN (14:30)
[2020-04-14] MEDS ORDERED: LASIX IVP ONE (18:00)
[2020-04-14] MEDS: HumuLIN R SUBCUT PRN (22:00)
[2020-04-14] MEDS: LIPITOR TAB 20 MG PO SCH (22:10)
[2020-04-15] MEDS: SNACK - Diabetic Appropriate PO SCH ×2 (00:29→22:30)
[2020-04-15] MEDS: TYGACIL 50 MG VIAL 50 MG in NS 100 ML IV 100 ML IV SCH ×2 (05:00→17:11)
[2020-04-15] MEDS: HumuLIN R SUBCUT PRN (05:30)
[2020-04-15 07:05] LABS: BASOPHILS % (AUTO) 0.2 % (0.2-1.0); EOSINOPHILS # (AUTO) 0.1 x10^3/uL (0.0-0.2); EOSINOPHILS % (AUTO) 0.4 % (0.9-2.9); HEMATOCRIT 32.5 % (36.0-47.0); HEMOGLOBIN 10.9 g/dL (12.0-16.0); LYMPHOCYTES # (AUTO) 2.2 X10^3/uL (1.3-2.9); LYMPHOCYTES % (AUTO) 13.7 % (21.0-51.0); MEAN CORPUSCULAR HEMOGLOBIN 30.2 pg (27.0-34.0); MEAN CORPUSCULAR HGB CONC 33.6 g/dL (33.0-35.0); MEAN CORPUSCULAR VOLUME 90.1 fL (80.0-100.0); MEAN PLATELET VOLUME 8.4 fL (7.4-11.0); MONOCYTES # (AUTO) 0.4 x10^3/uL (0.3-0.8); MONOCYTES % (AUTO) 2.6 % (0.0-13.0); NEUTROPHILS # (AUTO) 13.1 x10^3/uL (2.2-4.8); NEUTROPHILS % (AUTO) 83.1 % (42.0-75.0); PLATELET COUNT 161 X10^3/uL (150.0-450.0); RED BLOOD COUNT 3.61 X10^6/uL (3.5-5.4); RED CELL DISTRIBUTION WIDTH 15.3 % (11.6-16.5); WHITE BLOOD COUNT 15.7 X10^3/uL (3.6-10.0)
[2020-04-15 07:21] LABS: ALBUMIN 1.6 g/dL (3.4-5.0); CALCIUM 7.7 mg/dL (8.5-10.1); COR CA(FOR HYPOALB) 9.6 mg/dL (8.5-10.1); CREATININE 1.24 mg/dL (0.55-1.02); MAGNESIUM 1.8 mg/dL (1.7-2.9); TOTAL PROTEIN 5.5 g/dL (6.4-8.2)
[2020-04-15] MEDS: STERILE WATER FOR INJECTION 1,000 ML with SODIUM CHL CONCENTRATE* 23.4% 34 MEQ IV SCH ×4 (08:02→16:14)
[2020-04-15] MEDS: COZAAR PO SCH (09:41)
[2020-04-15] MEDS: LOPRESSOR TAB 25 MG PO SCH ×2 (09:41→22:30)
[2020-04-15] MEDS: KEPPRA TAB 500 MG PO SCH ×2 (09:41→22:29)
[2020-04-15] MEDS: LOVENOX INJ 30 MG SYR SC SCH (09:42)
[2020-04-15] MEDS: WELLBUTRIN IR (PLAIN) PO SCH (09:46)
[2020-04-15] MEDS: SEROquel TAB 25 mg PO SCH (09:46)
[2020-04-15] MEDS: MAG-OX TAB PO SCH ×2 (09:46→22:31)
[2020-04-15] MEDS: PROTONIX INJ 40 MG VIAL IVP SCH (09:46)
[2020-04-15] MEDS: PLAVIX PO SCH (09:55)
[2020-04-15] MEDS ORDERED: TYLENOL 500 MG TAB EXTRA STRENGTH PO PRN (10:10)
--- NOTE | 2020-04-15 12:11 | PCM.PROG ---
Progress Note Progress Note for Day of Date of Exam: 04/15/20 Subjective Subjective: Patient seen at bedside, no overnight events. Patient is currently being treated for hypernatremic hyperosmolar state. The patient has been on free water via NG tube. She also received a dose of Lasix yesterday. She is also being treated for UTI with Tigecycline. He has been afebrile and on room air. On exam, patient turns head to name and states that her back is hurting. She is mostly non-verbal when other questions were asked. Labs: WBC 15.7, down from 19.9 Hgb 10.9 Na: 152 K: 3.3 BUN/Cr: 49/1.24 Glucose 233 CXR yesterday: improvement in left lung infiltrate but worsening on the right side Plan: will repeat CXR today to see if there's any pulmonary congestion/edema. Patient did receive one dose of Lasix yesterday. Continue antibiotics. Continue free water intake and hydration. Will add Tylenol prn for pain control. Monitor AM labs. Past Medical Family Social History Past Med/Fam/Surg Hx: No changes since H&P Allergies: Allergies No Known Drug Allergies Allergy (Verified 02/03/17 15:43) Review of Systems ROS: No change since H&P Vital Signs and I&O's Vital Signs: Temperature 98.1 F Pulse Rate [Left Brachial] 95 Pulse Rate 104 Respiratory Rate 22 Blood Pressure [Left Arm] 119/63 Blood Pressure [Right Arm] 141/73 Blood Pressure 186/88 O2 Sat by Pulse Oximetry 93 Intake and Output: Intake & Output 04/12/20 04/13/20 04/14/20 04/15/20 23:59 23:59 23:59 23:59 Intake Total 631 / 631 1334 / 1334 1766 / 1766 670 / 670 Output Total 1200 / 1200 1350 / 1350 2800 / 2800 500 / 500 Balance -569 / -569 -16 / -16 -1034 / -1034 170 / 170 Physical Exam Oriented: Not Oriented and Unable to test Eyes: Normal Ear: Normal Nose: Normal Throat: Dry Respiratory: Generalized, Diminished, Rales and Rhonchi Cardiovascular: Normal Auscultation: Bowel Sounds: Normal Tenderness: Normal Skin: Decreased Turgur Musculoskeletal: Back:Thoracic, Back:Lumbar and Back:Paraspinous Psychiatric: Anxiety Mood Description: Anxious Affect: Anxious Speech Pattern: Unclear, Inappropriate, Delayed and Aphasic Laboratory and Diagnostics Result Diagrams: 04/15/20 06:47 04/15/20 06:47 Labs: 04/08/20 12:19 Blood Blood Culture - Final 04/08/20 12:05 Blood Blood Culture - Final 04/08/20 12:28 Urine,Catheterized Urine Culture - Final Laboratory WBC 15.7 X10^3/uL (3.6-10.0) H 04/15/20 06:47 RBC 3.61 X10^6/uL (3.5-5.4) 04/15/20 06:47 Hgb 10.9 g/dL (12.0-16.0) L 04/15/20 06:47 Hct 32.5 % (36.0-47.0) L 04/15/20 06:47 MCV 90.1 fL (80.0-100.0) 04/15/20 06:47 MCH 30.2 pg (27.0-34.0) 04/15/20 06:47 MCHC 33.6 g/dL (33.0-35.0) 04/15/20 06:47 RDW 15.3 % (11.6-16.5) 04/15/20 06:47 Plt Count 161 X10^3/uL (150.0-450.0) 04/15/20 06:47 MPV 8.4 fL (7.4-11.0) 04/15/20 06:47 Neut % (Auto) 83.1 % (42.0-75.0) H 04/15/20 06:47 Lymph % (Auto) 13.7 % (21.0-51.0) L 04/15/20 06:47 [place] % (Auto) 2.6 % (0.0-13.0) 04/15/20 06:47 Eos % (Auto) 0.4 % (0.9-2.9) L 04/15/20 06:47 Baso % (Auto) 0.2 % (0.2-1.0) 04/15/20 06:47 Neut # (Auto) 13.1 x10^3/uL (2.2-4.8) H 04/15/20 06:47 Lymph # (Auto) 2.2 X10^3/uL (1.3-2.9) 04/15/20 06:47 [place] # (Auto) 0.4 x10^3/uL (0.3-0.8) 04/15/20 06:47 Eos # (Auto) 0.1 x10^3/uL (0.0-0.2) 04/15/20 06:47 Baso # (Auto) 0.0 X10^3/uL (0.0-0.1) 04/15/20 06:47 Absolute Nucleated RBC 0.0 /100WBC 04/15/20 06:47 PT 14.9 SECONDS (11.8-14.3) 04/08/20 12:05 INR Target Range - 04/08/20 12:05 INR 1.21 (0.8-1.3) 04/08/20 12:05 APTT 24.2 SECONDS (22.9-36.5) 04/08/20 12:05 PTT Comment - 04/08/20 12:05 Sample Site Rb 04/08/20 13:51 ABG pH 7.420 (7.35-7.45) 04/08/20 13:51 ABG pCO2 38.0 mmHg (35.0-45.0) 04/08/20 13:51 ABG pO2 85.0 mmHg (80.0-100.0) 04/08/20 13:51 ABG HCO3 24.6 mmol/L (22-26) 04/08/20 13:51 ABG O2 Saturation 97.0 % (90-100) 04/08/20 13:51 ABG Base Excess 0.3 mmol/L (-2.0-2.0) 04/08/20 13:51 Arnaldo Test Na 04/08/20 13:51 A-a Gradient 67.0 mmHg 04/08/20 13:51 FiO2 28.0 04/08/20 13:51 Blood Gas Comments Henry well cb 04/08/20 13:51 Sodium 152 mmol/L (136-145) H* 04/15/20 06:47 Corrected Sodium 155 mmol/L (136-145) H 04/15/20 06:47 Potassium 3.3 mmol/L (3.5-5.1) L 04/15/20 06:47 Chloride 117 mmol/L (98-107) H* 04/15/20 06:47 Carbon Dioxide 23.0 mmol/L (21-32) 04/15/20 06:47 BUN 49 mg/dL (7-18) H 04/15/20 06:47 Creatinine 1.24 mg/dL (0.55-1.02) H 04/15/20 06:47 Est GFR (MDRD) Af Amer 55 (>60) L 04/15/20 06:47 Est GFR (MDRD) Non-Af 46 (>60) L 04/15/20 06:47 Glucose 233 mg/dL (65-99) H 04/15/20 06:47 POC Glucose (mg/dL) 185 mg/dL (65-99) H 04/15/20 05:22 Lactic Acid 1.9 mmol/L (0.4-2.0) 04/09/20 10:18 Calcium 7.7 mg/dL (8.5-10.1) L 04/15/20 06:47 Corrected Calcium 9.6 mg/dL (8.5-10.1) 04/15/20 06:47 Phosphorus 3.6 mg/dL (2.6-4.7) 04/08/20 16:04 Magnesium 1.8 mg/dL (1.7-2.9) 04/15/20 06:47 Total Bilirubin 0.70 mg/dL (0.2-1.0) 04/15/20 06:47 AST 26 Units/L (15-37) 04/15/20 06:47 ALT 26 Units/L (12-78) 04/15/20 06:47 Alkaline Phosphatase 106 Units/L (46-116) 04/15/20 06:47 Creatine Kinase 85 Units/L (26-192) 04/08/20 12:05 CK-MB (CK-2) < 1.0 ng/mL (0-4.0) 04/08/20 12:05 CK/CKMB % Calc 1.2 % (<4) 04/08/20 12:05 Troponin I 0.07 ng/mL (0-1.5) 04/08/20 12:05 Total Protein 5.5 g/dL (6.4-8.2) L 04/15/20 06:47 Albumin 1.6 g/dL (3.4-5.0) L 04/15/20 06:47 Globulin 3.9 g/dL (2.5-4.5) 04/15/20 06:47 Albumin/Globulin Ratio 0.4 Ratio (1.1-2.1) L 04/15/20 06:47 Specimen Type Catherized urine 04/08/20 12:28 Urine Color Yellow (YELLOW) 04/08/20 12:28 Urine Appearance Cloudy (CLEAR) 04/08/20 12:28 Urine pH 6.0 (5.0 - 8.0) 04/08/20 12:28 Ur Specific [place] 1.015 (1.000-1.030) 04/08/20 12:28 Urine Protein 3+ (NEGATIVE) 04/08/20 12:28 Urine Glucose (UA) 4+ (NEGATIVE) 04/08/20 12:28 Urine Ketones 3+ (NEGATIVE) 04/08/20 12:28 Urine Occult Blood 5+ (NEGATIVE) 04/08/20 12:28 Urine Nitrite Negative (NEGATIVE) 04/08/20 12:28 Urine Bilirubin Negative (NEGATIVE) 04/08/20 12:28 Urine Urobilinogen Normal (NORMAL) 04/08/20 12:28 Ur Leukocyte Esterase 3+ (NEGATIVE) 04/08/20 12:28 Urine RBC 10-20 /HPF (0-3) A 04/08/20 12:28 Urine WBC Tntc /HPF (0-5) A 04/08/20 12:28 Ur Squamous Epith Cells Negative /HPF (NEGATIVE) 04/08/20 12:28 Amorphous Sediment 2+ /HPF (NEGATIVE) 04/08/20 12:28 Urine Bacteria 2+ /HPF (NEGATIVE) 04/08/20 12:28 Urine Mucus Few /HPF (NEGATIVE) 04/08/20 12:28 Ur Culture Indicated? Yes/culture set up 04/08/20 12:28 SARS CoV-2 RNA Rapid ALYSE Negative (NEGATIVE) 04/08/20 13:16 Plan (1) Acute renal failure (ARF): Status: Acute Qualifiers: Acute renal failure type: unspecified Qualified Code(s): N17.9 - Acute kidney failure, unspecified (2) UTI (urinary tract infection): Status: Acute Qualifiers: Hematuria presence: without hematuria Urinary tract infection type: acute cystitis Qualified Code(s): N30.00 - Acute cystitis without hematuria (3) Diabetes mellitus type II, uncontrolled: Status: Acute Qualifiers: Glycemic state: with hyperglycemia Qualified Code(s): E11.65 - Type 2 diabetes mellitus with hyperglycemia (4) Hypernatremia: Status: Acute (5) Hypokalemia: Status: Acute (6) Pneumonia: Status: Acute Qualifiers: Laterality: bilateral Lung location: unspecified part of lung Pneumonia type: due to unspecified organism Qualified Code(s): J18.9 - Pneumonia, unspecified organism (7) CHF (congestive heart failure): Status: Chronic Qualifiers: Heart failure chronicity: unspecified Heart failure type: unspecified Qualified Code(s): I50.9 - Heart failure, unspecified
--- NOTE | 2020-04-15 14:18 | RAD ---
HISTORYRales, CHF historySTUDYPortable AP [id number]/2021FINDINGSStable normal heart size with sternal wires. No change in position of right subclavian injection port. Persistent bilateral basal infiltrates without significant progression or improvement. The upper lobes remain relatively clear. NG tube passes below the diaphragm, tip not visualized.IMPRESSIONThere is no significant change in appearance of the chest. Stable pulmonary infiltrates consistent with pneumonia.Electronically signed by: SHAYLA MORGAN (Apr 15, 2020 14:16:45)
[2020-04-15] MEDS: LIPITOR TAB 20 MG PO SCH (22:29)
[2020-04-16] MEDS: TYGACIL 50 MG VIAL 50 MG in NS 100 ML IV 100 ML IV SCH (04:26)
[2020-04-16 06:17] LABS: BASOPHILS % (AUTO) 0.1 % (0.2-1.0); EOSINOPHILS # (AUTO) 0.1 x10^3/uL (0.0-0.2); EOSINOPHILS % (AUTO) 0.3 % (0.9-2.9); HEMATOCRIT 32.9 % (36.0-47.0); HEMOGLOBIN 10.8 g/dL (12.0-16.0); LYMPHOCYTES # (AUTO) 1.9 X10^3/uL (1.3-2.9); LYMPHOCYTES % (AUTO) 12.1 % (21.0-51.0); MEAN CORPUSCULAR HEMOGLOBIN 29.9 pg (27.0-34.0); MEAN CORPUSCULAR VOLUME 90.5 fL (80.0-100.0); MEAN PLATELET VOLUME 8.6 fL (7.4-11.0); MONOCYTES # (AUTO) 0.4 x10^3/uL (0.3-0.8); MONOCYTES % (AUTO) 2.5 % (0.0-13.0); NEUTROPHILS # (AUTO) 13.3 x10^3/uL (2.2-4.8); PLATELET COUNT 201 X10^3/uL (150.0-450.0); RED BLOOD COUNT 3.63 X10^6/uL (3.5-5.4); RED CELL DISTRIBUTION WIDTH 15.2 % (11.6-16.5); WHITE BLOOD COUNT 15.6 X10^3/uL (3.6-10.0)
[2020-04-16] MEDS: STERILE WATER FOR INJECTION 1,000 ML with SODIUM CHL CONCENTRATE* 23.4% 34 MEQ IV SCH ×4 (06:25→15:47)
[2020-04-16 06:27] LABS: ALANINE AMINOTRANSFERASE 24 Units/L (12-78); ALBUMIN 1.6 g/dL (3.4-5.0); ALKALINE PHOSPHATASE 114 Units/L (46-116); ASPARTATE AMINO TRANSFERASE 29 Units/L (15-37); BLOOD UREA NITROGEN 45 mg/dL (7-18); CALCIUM 7.9 mg/dL (8.5-10.1); CARBON DIOXIDE 23.2 mmol/L (21-32); COR CA(FOR HYPOALB) 9.8 mg/dL (8.5-10.1); COR NA(FOR HYPERGLY) 154 mmol/L (136-145); TOTAL PROTEIN 5.5 g/dL (6.4-8.2); eGFR NON BLACK RACES 53 (>60)
[2020-04-16 06:33] LABS: SODIUM 150 mmol/L (136-145)
[2020-04-16 06:34] LABS: CHLORIDE 115 mmol/L (98-107)
--- NOTE | 2020-04-16 11:20 | PCM.PROG ---
Progress Note Progress Note for Day of Date of Exam: 04/16/20 Subjective Subjective: Patient seen at bedside, no overnight events. Patient is currently being treated for hypernatremic hyperosmolar state. The patient has been on free water via NG tube. She has been afebrile but is on 3L NC. On exam, patient turns head to name .he is mostly non-verbal when other questions were asked. Labs: WBC 15.6 Hgb 10.8 Na: 150 K: 3.4 BUN/Cr: 45/1.10 Glucose 262 CXR yesterday: Stable pulmonary infiltrates consistent with pneumonia. Plan: Wean O2 as tolerated t keep sats > 90%. Will switch abx to Zosyn to cover Pseudomonas. Replace K as per protocol. Continue free water intake and hydration. Monitor AM labs. Past Medical Family Social History Past Med/Fam/Surg Hx: No changes since H&P Allergies: Allergies No Known Drug Allergies Allergy (Verified 02/03/17 15:43) Review of Systems ROS: No change since H&P Vital Signs and I&O's Vital Signs: Temperature 96.8 F Pulse Rate [Left Brachial] 83 Pulse Rate 104 Respiratory Rate 18 Blood Pressure [Left Arm] 110/70 Blood Pressure [Right Arm] 141/73 Blood Pressure 186/88 O2 Sat by Pulse Oximetry 93 Intake and Output: Intake & Output 04/13/20 04/14/20 04/15/20 04/16/20 23:59 23:59 23:59 23:59 Intake Total 1334 / 1334 1766 / 1766 1080 / 1080 160 / 160 Output Total 1350 / 1350 2800 / 2800 1450 / 1450 Balance -16 / -16 -1034 / -1034 -370 / -370 160 / 160 Physical Exam Oriented: Not Oriented and Unable to test Eyes: Normal Ear: Normal Nose: Normal Throat: Dry Respiratory: Generalized, Diminished and Rhonchi Cardiovascular: Normal Auscultation: Bowel Sounds: Normal Tenderness: Normal Skin: Decreased Turgur Musculoskeletal: Back:Thoracic, Back:Lumbar and Back:Paraspinous Psychiatric: Normal Mood Description: Anxious Affect: Anxious Speech Pattern: Aphasic Laboratory and Diagnostics Result Diagrams: 04/16/20 05:35 04/16/20 05:35 Labs: 04/08/20 12:19 Blood Blood Culture - Final 04/08/20 12:05 Blood Blood Culture - Final 04/08/20 12:28 Urine,Catheterized Urine Culture - Final Laboratory WBC 15.6 X10^3/uL (3.6-10.0) H 04/16/20 05:35 RBC 3.63 X10^6/uL (3.5-5.4) 04/16/20 05:35 Hgb 10.8 g/dL (12.0-16.0) L 04/16/20 05:35 Hct 32.9 % (36.0-47.0) L 04/16/20 05:35 MCV 90.5 fL (80.0-100.0) 04/16/20 05:35 MCH 29.9 pg (27.0-34.0) 04/16/20 05:35 MCHC 33.0 g/dL (33.0-35.0) 04/16/20 05:35 RDW 15.2 % (11.6-16.5) 04/16/20 05:35 Plt Count 201 X10^3/uL (150.0-450.0) 04/16/20 05:35 MPV 8.6 fL (7.4-11.0) 04/16/20 05:35 Neut % (Auto) 85.0 % (42.0-75.0) H 04/16/20 05:35 Lymph % (Auto) 12.1 % (21.0-51.0) L 04/16/20 05:35 [place] % (Auto) 2.5 % (0.0-13.0) 04/16/20 05:35 Eos % (Auto) 0.3 % (0.9-2.9) L 04/16/20 05:35 Baso % (Auto) 0.1 % (0.2-1.0) L 04/16/20 05:35 Neut # (Auto) 13.3 x10^3/uL (2.2-4.8) H 04/16/20 05:35 Lymph # (Auto) 1.9 X10^3/uL (1.3-2.9) 04/16/20 05:35 [place] # (Auto) 0.4 x10^3/uL (0.3-0.8) 04/16/20 05:35 Eos # (Auto) 0.1 x10^3/uL (0.0-0.2) 04/16/20 05:35 Baso # (Auto) 0.0 X10^3/uL (0.0-0.1) 04/16/20 05:35 Absolute Nucleated RBC 0.1 /100WBC 04/16/20 05:35 PT 14.9 SECONDS (11.8-14.3) 04/08/20 12:05 INR Target Range - 04/08/20 12:05 INR 1.21 (0.8-1.3) 04/08/20 12:05 APTT 24.2 SECONDS (22.9-36.5) 04/08/20 12:05 PTT Comment - 04/08/20 12:05 Sample Site Rb 04/08/20 13:51 ABG pH 7.420 (7.35-7.45) 04/08/20 13:51 ABG pCO2 38.0 mmHg (35.0-45.0) 04/08/20 13:51 ABG pO2 85.0 mmHg (80.0-100.0) 04/08/20 13:51 ABG HCO3 24.6 mmol/L (22-26) 04/08/20 13:51 ABG O2 Saturation 97.0 % (90-100) 04/08/20 13:51 ABG Base Excess 0.3 mmol/L (-2.0-2.0) 04/08/20 13:51 Arnaldo Test Na 04/08/20 13:51 A-a Gradient 67.0 mmHg 04/08/20 13:51 FiO2 28.0 04/08/20 13:51 Blood Gas Comments Henry well cb 04/08/20 13:51 Sodium 150 mmol/L (136-145) H* 04/16/20 05:35 Corrected Sodium 154 mmol/L (136-145) H 04/16/20 05:35 Potassium 3.4 mmol/L (3.5-5.1) L 04/16/20 05:35 Chloride 115 mmol/L (98-107) H* 04/16/20 05:35 Carbon Dioxide 23.2 mmol/L (21-32) 04/16/20 05:35 BUN 45 mg/dL (7-18) H 04/16/20 05:35 Creatinine 1.10 mg/dL (0.55-1.02) H 04/16/20 05:35 Est GFR (MDRD) Af Amer > 60 (>60) 04/16/20 05:35 Est GFR (MDRD) Non-Af 53 (>60) L 04/16/20 05:35 Glucose 262 mg/dL (65-99) H 04/16/20 05:35 POC Glucose (mg/dL) 206 mg/dL (65-99) H 04/15/20 22:01 Lactic Acid 1.9 mmol/L (0.4-2.0) 04/09/20 10:18 Calcium 7.9 mg/dL (8.5-10.1) L 04/16/20 05:35 Corrected Calcium 9.8 mg/dL (8.5-10.1) 04/16/20 05:35 Phosphorus 3.6 mg/dL (2.6-4.7) 04/08/20 16:04 Magnesium 1.8 mg/dL (1.7-2.9) 04/15/20 06:47 Total Bilirubin 0.60 mg/dL (0.2-1.0) 04/16/20 05:35 AST 29 Units/L (15-37) 04/16/20 05:35 ALT 24 Units/L (12-78) 04/16/20 05:35 Alkaline Phosphatase 114 Units/L (46-116) 04/16/20 05:35 Creatine Kinase 85 Units/L (26-192) 04/08/20 12:05 CK-MB (CK-2) < 1.0 ng/mL (0-4.0) 04/08/20 12:05 CK/CKMB % Calc 1.2 % (<4) 04/08/20 12:05 Troponin I 0.07 ng/mL (0-1.5) 04/08/20 12:05 Total Protein 5.5 g/dL (6.4-8.2) L 04/16/20 05:35 Albumin 1.6 g/dL (3.4-5.0) L 04/16/20 05:35 Globulin 3.9 g/dL (2.5-4.5) 04/16/20 05:35 Albumin/Globulin Ratio 0.4 Ratio (1.1-2.1) L 04/16/20 05:35 Specimen Type Catherized urine 04/08/20 12:28 Urine Color Yellow (YELLOW) 04/08/20 12:28 Urine Appearance Cloudy (CLEAR) 04/08/20 12:28 Urine pH 6.0 (5.0 - 8.0) 04/08/20 12:28 Ur Specific [place] 1.015 (1.000-1.030) 04/08/20 12:28 Urine Protein 3+ (NEGATIVE) 04/08/20 12:28 Urine Glucose (UA) 4+ (NEGATIVE) 04/08/20 12:28 Urine Ketones 3+ (NEGATIVE) 04/08/20 12:28 Urine Occult Blood 5+ (NEGATIVE) 04/08/20 12:28 Urine Nitrite Negative (NEGATIVE) 04/08/20 12:28 Urine Bilirubin Negative (NEGATIVE) 04/08/20 12:28 Urine Urobilinogen Normal (NORMAL) 04/08/20 12:28 Ur Leukocyte Esterase 3+ (NEGATIVE) 04/08/20 12:28 Urine RBC 10-20 /HPF (0-3) A 04/08/20 12:28 Urine WBC Tntc /HPF (0-5) A 04/08/20 12:28 Ur Squamous Epith Cells Negative /HPF (NEGATIVE) 04/08/20 12:28 Amorphous Sediment 2+ /HPF (NEGATIVE) 04/08/20 12:28 Urine Bacteria 2+ /HPF (NEGATIVE) 04/08/20 12:28 Urine Mucus Few /HPF (NEGATIVE) 04/08/20 12:28 Ur Culture Indicated? Yes/culture set up 04/08/20 12:28 SARS CoV-2 RNA Rapid ALYSE Negative (NEGATIVE) 04/08/20 13:16 Plan (1) Acute renal failure (ARF): Status: Acute Qualifiers: Acute renal failure type: unspecified Qualified Code(s): N17.9 - Acute kidney failure, unspecified (2) UTI (urinary tract infection): Status: Acute Qualifiers: Hematuria presence: without hematuria Urinary tract infection type: acute cystitis Qualified Code(s): N30.00 - Acute cystitis without hematuria (3) Diabetes mellitus type II, uncontrolled: Status: Acute Qualifiers: Glycemic state: with hyperglycemia Qualified Code(s): E11.65 - Type 2 diabetes mellitus with hyperglycemia (4) Hypernatremia: Status: Acute (5) Hypokalemia: Status: Acute (6) Pneumonia: Status: Acute Qualifiers: Laterality: bilateral Lung location: unspecified part of lung Pneumonia type: due to unspecified organism Qualified Code(s): J18.9 - Pneumonia, unspecified organism (7) CHF (congestive heart failure): Status: Chronic Qualifiers: Heart failure chronicity: unspecified Heart failure type: unspecified Qualified Code(s): I50.9 - Heart failure, unspecified
[2020-04-16] MEDS: COZAAR PO SCH (11:22)
[2020-04-16] MEDS: LOVENOX INJ 30 MG SYR SC SCH (11:23)
[2020-04-16] MEDS: KEPPRA TAB 500 MG PO SCH ×2 (11:23→22:21)
[2020-04-16] MEDS: LOPRESSOR TAB 25 MG PO SCH ×2 (11:23→22:21)
[2020-04-16] MEDS: MAG-OX TAB PO SCH ×2 (11:24→22:21)
[2020-04-16] MEDS: PROTONIX INJ 40 MG VIAL IVP SCH (11:24)
[2020-04-16] MEDS: PLAVIX PO SCH (11:24)
[2020-04-16] MEDS: SEROquel TAB 25 mg PO SCH (11:24)
[2020-04-16] MEDS: WELLBUTRIN IR (PLAIN) PO SCH (11:25)
[2020-04-16] MEDS: ZOSYN VIAL 3.375 GRAMS 3.375 G in NS 100 ML IV + SPIKE MINIBAG* 100 ML IV SCH ×3 (12:43→22:22)
[2020-04-16] MEDS: HumuLIN R SUBCUT PRN ×2 (12:57→18:12)
[2020-04-16] MEDS: LIPITOR TAB 20 MG PO SCH (22:21)
[2020-04-16] MEDS: SNACK - Diabetic Appropriate PO SCH (22:22)
[2020-04-17] MEDS: ZOSYN VIAL 3.375 GRAMS 3.375 G in NS 100 ML IV + SPIKE MINIBAG* 100 ML IV SCH ×3 (05:17→21:30)
[2020-04-17 07:12] LABS: BASOPHILS % (AUTO) 0.1 % (0.2-1.0); EOSINOPHILS % (AUTO) 0.1 % (0.9-2.9); HEMATOCRIT 30.9 % (36.0-47.0); HEMOGLOBIN 10.4 g/dL (12.0-16.0); LYMPHOCYTES # (AUTO) 1.8 X10^3/uL (1.3-2.9); LYMPHOCYTES % (AUTO) 11.2 % (21.0-51.0); MEAN CORPUSCULAR HEMOGLOBIN 30.1 pg (27.0-34.0); MEAN CORPUSCULAR HGB CONC 33.5 g/dL (33.0-35.0); MEAN CORPUSCULAR VOLUME 89.8 fL (80.0-100.0); MEAN PLATELET VOLUME 8.7 fL (7.4-11.0); MONOCYTES # (AUTO) 0.4 x10^3/uL (0.3-0.8); MONOCYTES % (AUTO) 2.7 % (0.0-13.0); NEUTROPHILS # (AUTO) 13.8 x10^3/uL (2.2-4.8); NEUTROPHILS % (AUTO) 85.9 % (42.0-75.0); PLATELET COUNT 201 X10^3/uL (150.0-450.0); RED BLOOD COUNT 3.44 X10^6/uL (3.5-5.4); RED CELL DISTRIBUTION WIDTH 15.1 % (11.6-16.5); WHITE BLOOD COUNT 16.1 X10^3/uL (3.6-10.0)
[2020-04-17] MEDS: STERILE WATER FOR INJECTION 1,000 ML with SODIUM CHL CONCENTRATE* 23.4% 34 MEQ IV SCH ×4 (07:37→17:41)
[2020-04-17 08:48] LABS: ALBUMIN 1.4 g/dL (3.4-5.0); CARBON DIOXIDE 21.1 mmol/L (21-32); COR CA(FOR HYPOALB) 10.1 mg/dL (8.5-10.1); CREATININE 1.18 mg/dL (0.55-1.02); TOTAL PROTEIN 5.4 g/dL (6.4-8.2)
[2020-04-17] MEDS: COZAAR PO SCH (09:21)
[2020-04-17] MEDS: KEPPRA TAB 500 MG PO SCH ×2 (09:22→21:30)
[2020-04-17] MEDS: MAG-OX TAB PO SCH ×2 (09:22→21:30)
[2020-04-17] MEDS: LOVENOX INJ 30 MG SYR SC SCH (09:22)
[2020-04-17] MEDS: LOPRESSOR TAB 25 MG PO SCH ×2 (09:22→21:30)
[2020-04-17] MEDS: PROTONIX INJ 40 MG VIAL IVP SCH (09:23)
[2020-04-17] MEDS: WELLBUTRIN IR (PLAIN) PO SCH (09:23)
[2020-04-17] MEDS: SEROquel TAB 25 mg PO SCH (09:23)
[2020-04-17] MEDS: PLAVIX PO SCH (09:23)
[2020-04-17] MEDS: DUONEB 0.5 MG/3 MG (3 mL) NEB SCH (11:04)
--- NOTE | 2020-04-17 11:09 | RAD ---
HISTORYPNEUMONIASTUDYCHEST, 1 [id number]/09/2020FINDINGSThe trachea is midline. The cardiac silhouette is stable. Similar post sternotomy changes. Enteric tube unchanged. Right chest port unchanged. Slight worsening of left basilar pleural parenchymal opacities. The bony thorax is unremarkable.IMPRESSIONSlight worsening of left basilar pleural parenchymal opacities. Recommend follow-up to resolution.Electronically signed by: JANAK CHOW (Apr 17, 2020 11:07:42)
[2020-04-17] MEDS: HumuLIN R SUBCUT PRN (11:26)
[2020-04-17] MEDS ORDERED: LASIX IVP ONE ×2 (18:49→21:59)
[2020-04-17] MEDS: LIPITOR TAB 20 MG PO SCH (21:30)
[2020-04-17] MEDS: K-DUR TAB 20 MEQ PO SCH ×2 (21:30→23:23)
[2020-04-17] MEDS: SNACK - Diabetic Appropriate PO SCH (23:24)
[2020-04-18] MEDS: STERILE WATER FOR INJECTION 1,000 ML with SODIUM CHL CONCENTRATE* 23.4% 34 MEQ IV SCH ×2 (04:15)
[2020-04-18] MEDS: ZOSYN VIAL 3.375 GRAMS 3.375 G in NS 100 ML IV + SPIKE MINIBAG* 100 ML IV SCH ×3 (05:46→22:10)
[2020-04-18] MEDS: HumuLIN R SUBCUT PRN ×3 (05:47→22:00)
[2020-04-18 07:40] LABS: BASOPHILS % (AUTO) 0.1 % (0.2-1.0); EOSINOPHILS % (AUTO) 0.1 % (0.9-2.9); HEMATOCRIT 28.7 % (36.0-47.0); HEMOGLOBIN 9.7 g/dL (12.0-16.0); LYMPHOCYTES # (AUTO) 1.5 X10^3/uL (1.3-2.9); MEAN CORPUSCULAR HEMOGLOBIN 30.6 pg (27.0-34.0); MEAN CORPUSCULAR HGB CONC 33.9 g/dL (33.0-35.0); MEAN CORPUSCULAR VOLUME 90.4 fL (80.0-100.0); MEAN PLATELET VOLUME 8.5 fL (7.4-11.0); MONOCYTES # (AUTO) 0.4 x10^3/uL (0.3-0.8); MONOCYTES % (AUTO) 2.9 % (0.0-13.0); NEUTROPHILS # (AUTO) 12.7 x10^3/uL (2.2-4.8); NEUTROPHILS % (AUTO) 86.9 % (42.0-75.0); PLATELET COUNT 189 X10^3/uL (150.0-450.0); RED BLOOD COUNT 3.17 X10^6/uL (3.5-5.4); RED CELL DISTRIBUTION WIDTH 15.1 % (11.6-16.5); WHITE BLOOD COUNT 14.7 X10^3/uL (3.6-10.0)
[2020-04-18 07:41] LABS: ALANINE AMINOTRANSFERASE 18 Units/L (12-78); ALBUMIN 1.4 g/dL (3.4-5.0); ALKALINE PHOSPHATASE 113 Units/L (46-116); ASPARTATE AMINO TRANSFERASE 26 Units/L (15-37); BLOOD UREA NITROGEN 32 mg/dL (7-18); CHLORIDE 111 mmol/L (98-107); COR CA(FOR HYPOALB) 10.1 mg/dL (8.5-10.1); COR NA(FOR HYPERGLY) 149 mmol/L (136-145); CREATININE 1.13 mg/dL (0.55-1.02); SODIUM 144 mmol/L (136-145); TOTAL PROTEIN 5.6 g/dL (6.4-8.2); eGFR NON BLACK RACES 51 (>60)
--- NOTE | 2020-04-18 09:01 | RAD ---
HISTORYPneumoniaSTUDYAP [id number]/11/2020FINDINGSThere is no change in cardiac size or contour. There is persistent airspace consolidation in the left lower lobe. Minimal right basal infiltrate may be present, equivocal. The upper lungs remain clear. No change in position of right subclavian injection port.IMPRESSIONNo change in appearance of the chest since 1 day earlier. Stable appearance of left lower lobe pneumonia.Electronically signed by: SHAYLA MORGAN (Apr 18, 2020 08:59:35)
[2020-04-18] MEDS: COZAAR PO SCH (09:57)
[2020-04-18] MEDS: LOPRESSOR TAB 25 MG PO SCH ×2 (10:01→22:10)
[2020-04-18] MEDS: KEPPRA TAB 500 MG PO SCH ×2 (10:01→22:10)
[2020-04-18] MEDS: PLAVIX PO SCH (10:02)
[2020-04-18] MEDS: LOVENOX INJ 30 MG SYR SC SCH (10:02)
[2020-04-18] MEDS: SEROquel TAB 25 mg PO SCH (10:03)
[2020-04-18] MEDS: WELLBUTRIN IR (PLAIN) PO SCH (10:04)
[2020-04-18] MEDS: MAG-OX TAB PO SCH ×2 (10:04→22:10)
[2020-04-18] MEDS: PROTONIX INJ 40 MG VIAL IVP SCH (10:06)
[2020-04-18] MEDS: DUONEB 0.5 MG/3 MG (3 mL) NEB SCH ×3 (10:55→18:07)
[2020-04-18] MEDS: K-DUR TAB 20 MEQ PO SCH (11:50)
[2020-04-18 14:21] LABS: ABG BASE EXCESS 1.6 mmol/L (-2.0-2.0); ABG HCO3 24.2 mmol/L (22-26)
[2020-04-18 14:22] LABS: ABG ALLEN TEST POS
[2020-04-18] MEDS ORDERED: LASIX IVP ONE ×2 (19:23→22:00)
[2020-04-18] MEDS: KLOR-CON PO PRN (22:00)
[2020-04-18] MEDS: LIPITOR TAB 20 MG PO SCH (22:10)
[2020-04-18] MEDS: SNACK - Diabetic Appropriate PO SCH (23:39)
[2020-04-19] MEDS: DUONEB 0.5 MG/3 MG (3 mL) NEB SCH ×4 (00:28→17:15)
[2020-04-19] MEDS: HumuLIN R SUBCUT PRN (03:10)
[2020-04-19] MEDS: ZOSYN VIAL 3.375 GRAMS 3.375 G in NS 100 ML IV + SPIKE MINIBAG* 100 ML IV SCH ×3 (05:58→21:48)
[2020-04-19 07:36] LABS: BASOPHILS % (AUTO) 0.1 % (0.2-1.0); EOSINOPHILS % (AUTO) 0.2 % (0.9-2.9); HEMATOCRIT 28.8 % (36.0-47.0); HEMOGLOBIN 9.7 g/dL (12.0-16.0); LYMPHOCYTES # (AUTO) 1.6 X10^3/uL (1.3-2.9); LYMPHOCYTES % (AUTO) 10.3 % (21.0-51.0); MEAN CORPUSCULAR HEMOGLOBIN 30.1 pg (27.0-34.0); MEAN CORPUSCULAR HGB CONC 33.5 g/dL (33.0-35.0); MEAN CORPUSCULAR VOLUME 89.7 fL (80.0-100.0); MEAN PLATELET VOLUME 8.5 fL (7.4-11.0); MONOCYTES # (AUTO) 0.4 x10^3/uL (0.3-0.8); MONOCYTES % (AUTO) 2.4 % (0.0-13.0); NEUTROPHILS # (AUTO) 13.9 x10^3/uL (2.2-4.8); PLATELET COUNT 213 X10^3/uL (150.0-450.0); RED BLOOD COUNT 3.21 X10^6/uL (3.5-5.4); RED CELL DISTRIBUTION WIDTH 14.9 % (11.6-16.5)
[2020-04-19 07:38] LABS: ALANINE AMINOTRANSFERASE 17 Units/L (12-78); ALBUMIN 1.4 g/dL (3.4-5.0); ALKALINE PHOSPHATASE 123 Units/L (46-116); ASPARTATE AMINO TRANSFERASE 23 Units/L (15-37); BLOOD UREA NITROGEN 21 mg/dL (7-18); CALCIUM 8.2 mg/dL (8.5-10.1); CARBON DIOXIDE 23.8 mmol/L (21-32); CHLORIDE 110 mmol/L (98-107); COR CA(FOR HYPOALB) 10.3 mg/dL (8.5-10.1); COR NA(FOR HYPERGLY) 145 mmol/L (136-145); CREATININE 1.02 mg/dL (0.55-1.02); SODIUM 143 mmol/L (136-145); eGFR NON BLACK RACES 57 (>60)
[2020-04-19] MEDS: STERILE WATER FOR INJECTION 1,000 ML with SODIUM CHL CONCENTRATE* 23.4% 34 MEQ IV SCH ×2 (09:19)
[2020-04-19] MEDS: KEPPRA TAB 500 MG PO SCH ×2 (09:19→21:47)
[2020-04-19] MEDS: COZAAR PO SCH (09:19)
[2020-04-19] MEDS: LOPRESSOR TAB 25 MG PO SCH ×2 (09:20→21:47)
[2020-04-19] MEDS: PROTONIX INJ 40 MG VIAL IVP SCH (09:21)
[2020-04-19] MEDS: MAG-OX TAB PO SCH ×2 (09:21→21:48)
[2020-04-19] MEDS: WELLBUTRIN IR (PLAIN) PO SCH (09:23)
[2020-04-19] MEDS: SEROquel TAB 25 mg PO SCH (09:23)
[2020-04-19] MEDS: KLOR-CON PO PRN (09:25)
[2020-04-19] MEDS: PLAVIX PO SCH (09:30)
--- NOTE | 2020-04-19 09:56 | RAD ---
HISTORYPNEUMONIASTUDYCHEST, 1 VIEWCOMPARISONPortable chest April 18, 2020.FINDINGSThe trachea is midline. The cardiac silhouette is unremarkable. There are sternotomy wires from prior probable heart valve surgery. NG tube is in place with the tip in good position. The infiltrates in both lung bases ease are unchanged from yesterday's exam. There is no evidence of effusion.. The bony thorax is unremarkable.IMPRESSIONNo change in the bibasilar infiltrates compared to prior day's film. NG tube and right central venous port are in good position.Electronically signed by: MARIA DE JESUS BRICENO (Apr 19, 2020 09:54:39)
[2020-04-19] MEDS: LOVENOX INJ 30 MG SYR SC SCH (11:03)
[2020-04-19] MEDS ORDERED: KETALAR ONE ×2 (14:26→15:07)
[2020-04-19] MEDS ORDERED: NS 1000 ML 1,000 ML ONE ×3 (14:45)
[2020-04-19] MEDS ORDERED: XYLOCAINE 2 % (PLAIN) ONE (15:07)
[2020-04-19] MEDS ORDERED: DIPRIVAN VIAL ONE (15:07)
[2020-04-19] MEDS ORDERED: STERILE WATER IRRIGATION IR ONE (16:33)
[2020-04-19] MEDS: LIPITOR TAB 20 MG PO SCH (21:47)
[2020-04-19] MEDS: SNACK - Diabetic Appropriate PO SCH (21:47)
[2020-04-20] MEDS: DUONEB 0.5 MG/3 MG (3 mL) NEB SCH ×3 (00:10→14:14)
[2020-04-20] MEDS ORDERED: NS 100 ML IV + SPIKE MINIBAG* 100 ML IV ONE (04:08)
[2020-04-20] MEDS ORDERED: ZOSYN VIAL 3.375 GRAMS IV ONE (04:30)
[2020-04-20] MEDS: ZOSYN VIAL 3.375 GRAMS 3.375 G in NS 100 ML IV + SPIKE MINIBAG* 100 ML IV SCH ×2 (05:41→14:15)
[2020-04-20] MEDS: HumuLIN R SUBCUT PRN (05:43)
[2020-04-20 06:41] LABS: BASOPHILS % (AUTO) 0.1 % (0.2-1.0); HEMATOCRIT 25.3 % (36.0-47.0); HEMOGLOBIN 8.4 g/dL (12.0-16.0); LYMPHOCYTES # (AUTO) 1.2 X10^3/uL (1.3-2.9); LYMPHOCYTES % (AUTO) 9.2 % (21.0-51.0); MEAN CORPUSCULAR HEMOGLOBIN 30.3 pg (27.0-34.0); MEAN CORPUSCULAR HGB CONC 33.3 g/dL (33.0-35.0); MEAN CORPUSCULAR VOLUME 90.9 fL (80.0-100.0); MEAN PLATELET VOLUME 8.2 fL (7.4-11.0); MONOCYTES # (AUTO) 0.3 x10^3/uL (0.3-0.8); MONOCYTES % (AUTO) 2.5 % (0.0-13.0); NEUTROPHILS # (AUTO) 11.2 x10^3/uL (2.2-4.8); NEUTROPHILS % (AUTO) 88.2 % (42.0-75.0); PLATELET COUNT 174 X10^3/uL (150.0-450.0); RED BLOOD COUNT 2.78 X10^6/uL (3.5-5.4); RED CELL DISTRIBUTION WIDTH 15.4 % (11.6-16.5); WHITE BLOOD COUNT 12.7 X10^3/uL (3.6-10.0)
[2020-04-20 07:16] LABS: ALANINE AMINOTRANSFERASE 15 Units/L (12-78); ALBUMIN 1.2 g/dL (3.4-5.0); ALKALINE PHOSPHATASE 113 Units/L (46-116); ASPARTATE AMINO TRANSFERASE 18 Units/L (15-37); BLOOD UREA NITROGEN 17 mg/dL (7-18); CALCIUM 7.9 mg/dL (8.5-10.1); CARBON DIOXIDE 21.8 mmol/L (21-32); CHLORIDE 110 mmol/L (98-107); COR CA(FOR HYPOALB) 10.1 mg/dL (8.5-10.1); COR NA(FOR HYPERGLY) 147 mmol/L (136-145); CREATININE 0.98 mg/dL (0.55-1.02); SODIUM 144 mmol/L (136-145); TOTAL PROTEIN 5.5 g/dL (6.4-8.2); eGFR NON BLACK RACES > 60 (>60)
[2020-04-20] MEDS: LOPRESSOR TAB 25 MG PO SCH (08:05)
[2020-04-20] MEDS: KEPPRA TAB 500 MG PO SCH (08:05)
[2020-04-20] MEDS: MAG-OX TAB PO SCH (08:05)
[2020-04-20] MEDS: COZAAR PO SCH (08:05)
[2020-04-20] MEDS: WELLBUTRIN IR (PLAIN) PO SCH (08:06)
[2020-04-20] MEDS: SEROquel TAB 25 mg PO SCH (08:06)
[2020-04-20] MEDS: PLAVIX PO SCH (08:06)
[2020-04-20] MEDS: LOVENOX INJ 30 MG SYR SC SCH (08:17)
[2020-04-20] MEDS: PROTONIX INJ 40 MG VIAL IVP SCH (08:19)
[2020-04-20] MEDS ORDERED: POTASSIUM CHLORIDE LIQ 20 MEQ UDC PO SCH (09:00)
--- NOTE | 2020-04-20 09:45 | RAD ---
HISTORYFollow-up pneumoniaSTUDYChest AP [id number]/13/2021FINDINGSThere is a port present on the right. Patient is status post medi an sternotomy. The heart is within normal limits in size. The triny are normal. The lungs are hypoinfl ated. Bilateral lower lobe infiltrates are unchanged on the right and slightly increased on the left. No pleural effusions are identified. Bony thorax is unremarkable.IMPRESSIONSlight increase left lowe r lobe infiltratesNo change right lower lobe infiltratesElectronically signed by: JANAK CHOW (Apr 20, 2020 09:42:52)
[2020-04-20] MEDS: STERILE WATER FOR INJECTION 1,000 ML with SODIUM CHL CONCENTRATE* 23.4% 34 MEQ IV SCH ×2 (10:36)
--- NOTE | 2020-04-20 13:46 | DR.PROGNOT ---
Hospital Progress Notes - Progress Note for Day of: Progress Note Date: 04/20/20 - Chief Complaint Chief Complaint: s/p PEG placement . no complications . afebrile . - Past Medical Family Social History Past Med/Fam/Surg Hx: No changes since H&P Allergies: Allergies No Known Drug Allergies Allergy (Verified 02/03/17 15:43) - Review Of Systems ROS: No change since H&P - Vital Signs Vital Signs: Temperature 98.2 F Pulse Rate [Left Brachial] 100 Pulse Rate 90 Respiratory Rate 18 Blood Pressure [Left Arm] 127/60 Blood Pressure [Right Arm] 141/73 Blood Pressure 186/88 O2 Sat by Pulse Oximetry 92 - Physical Exam Oriented: Not Oriented, Unable to test Eyes: Normal Ear: Normal Nose: Normal Throat: Dry Respiratory: Generalized, Diminished, Rhonchi Cardiovascular: Normal GI:Auscultation: Normal GI: Tenderness: Normal Skin: Decreased Turgur Musculoskeletal: Back:Thoracic, Back:Lumbar, Back:Paraspinous Psychiatric: Normal Mood Description: Anxious Affect: Anxious Speech Pattern: Aphasic - Laboratory and Diagnostics Result Diagrams: 04/20/20 06:03 04/20/20 06:03 Labs: 04/08/20 12:19 Blood Blood Culture - Final 04/08/20 12:05 Blood Blood Culture - Final 04/08/20 12:28 Urine,Catheterized Urine Culture - Final Laboratory WBC 12.7 X10^3/uL (3.6-10.0) H 04/20/20 06:03 RBC 2.78 X10^6/uL (3.5-5.4) L 04/20/20 06:03 Hgb 8.4 g/dL (12.0-16.0) L 04/20/20 06:03 Hct 25.3 % (36.0-47.0) L 04/20/20 06:03 MCV 90.9 fL (80.0-100.0) 04/20/20 06:03 MCH 30.3 pg (27.0-34.0) 04/20/20 06:03 MCHC 33.3 g/dL (33.0-35.0) 04/20/20 06:03 RDW 15.4 % (11.6-16.5) 04/20/20 06:03 Plt Count 174 X10^3/uL (150.0-450.0) 04/20/20 06:03 MPV 8.2 fL (7.4-11.0) 04/20/20 06:03 Neut % (Auto) 88.2 % (42.0-75.0) H 04/20/20 06:03 Lymph % (Auto) 9.2 % (21.0-51.0) L 04/20/20 06:03 [place] % (Auto) 2.5 % (0.0-13.0) 04/20/20 06:03 Eos % (Auto) 0.0 % (0.9-2.9) L 04/20/20 06:03 Baso % (Auto) 0.1 % (0.2-1.0) L 04/20/20 06:03 Neut # (Auto) 11.2 x10^3/uL (2.2-4.8) H 04/20/20 06:03 Lymph # (Auto) 1.2 X10^3/uL (1.3-2.9) L 04/20/20 06:03 [place] # (Auto) 0.3 x10^3/uL (0.3-0.8) 04/20/20 06:03 Eos # (Auto) 0.0 x10^3/uL (0.0-0.2) 04/20/20 06:03 Baso # (Auto) 0.0 X10^3/uL (0.0-0.1) 04/20/20 06:03 Absolute Nucleated RBC 0.1 /100WBC 04/20/20 06:03 PT 14.9 SECONDS (11.8-14.3) 04/08/20 12:05 INR Target Range - 04/08/20 12:05 INR 1.21 (0.8-1.3) 04/08/20 12:05 APTT 24.2 SECONDS (22.9-36.5) 04/08/20 12:05 PTT Comment - 04/08/20 12:05 Sample Site Lrad 04/18/20 14:15 ABG pH 7.500 (7.35-7.45) H 04/18/20 14:15 ABG pCO2 31.0 mmHg (35.0-45.0) L 04/18/20 14:15 ABG pO2 60.0 mmHg (80.0-100.0) L 04/18/20 14:15 ABG HCO3 24.2 mmol/L (22-26) 04/18/20 14:15 ABG O2 Saturation 93.0 % (90-100) 04/18/20 14:15 ABG Base Excess 1.6 mmol/L (-2.0-2.0) 04/18/20 14:15 Arnaldo Test Pos 04/18/20 14:15 A-a Gradient 51.0 mmHg 04/18/20 14:15 FiO2 21.0 04/18/20 14:15 Blood Gas Comments Pt rodo well elj 04/18/20 14:15 Sodium 144 mmol/L (136-145) 04/20/20 06:03 Corrected Sodium 147 mmol/L (136-145) H 04/20/20 06:03 Potassium 3.6 mmol/L (3.5-5.1) 04/20/20 06:03 Chloride 110 mmol/L (98-107) H 04/20/20 06:03 Carbon Dioxide 21.8 mmol/L (21-32) 04/20/20 06:03 BUN 17 mg/dL (7-18) 04/20/20 06:03 Creatinine 0.98 mg/dL (0.55-1.02) 04/20/20 06:03 Est GFR (MDRD) Af Amer > 60 (>60) 04/20/20 06:03 Est GFR (MDRD) Non-Af > 60 (>60) 04/20/20 06:03 Glucose 221 mg/dL (65-99) H 04/20/20 06:03 POC Glucose (mg/dL) 163 mg/dL (65-99) H 04/20/20 11:41 Lactic Acid 1.9 mmol/L (0.4-2.0) 04/09/20 10:18 Calcium 7.9 mg/dL (8.5-10.1) L 04/20/20 06:03 Corrected Calcium 10.1 mg/dL (8.5-10.1) 04/20/20 06:03 Phosphorus 3.6 mg/dL (2.6-4.7) 04/08/20 16:04 Magnesium 1.8 mg/dL (1.7-2.9) 04/15/20 06:47 Total Bilirubin 0.40 mg/dL (0.2-1.0) 04/20/20 06:03 AST 18 Units/L (15-37) 04/20/20 06:03 ALT 15 Units/L (12-78) 04/20/20 06:03 Alkaline Phosphatase 113 Units/L (46-116) 04/20/20 06:03 Creatine Kinase 85 Units/L (26-192) 04/08/20 12:05 CK-MB (CK-2) < 1.0 ng/mL (0-4.0) 04/08/20 12:05 CK/CKMB % Calc 1.2 % (<4) 04/08/20 12:05 Troponin I 0.07 ng/mL (0-1.5) 04/08/20 12:05 Total Protein 5.5 g/dL (6.4-8.2) L 04/20/20 06:03 Albumin 1.2 g/dL (3.4-5.0) L 04/20/20 06:03 Globulin 4.3 g/dL (2.5-4.5) 04/20/20 06:03 Albumin/Globulin Ratio 0.3 Ratio (1.1-2.1) L 04/20/20 06:03 Specimen Type Catherized urine 04/08/20 12:28 Urine Color Yellow (YELLOW) 04/08/20 12:28 Urine Appearance Cloudy (CLEAR) 04/08/20 12:28 Urine pH 6.0 (5.0 - 8.0) 04/08/20 12:28 Ur Specific [place] 1.015 (1.000-1.030) 04/08/20 12:28 Urine Protein 3+ (NEGATIVE) 04/08/20 12:28 Urine Glucose (UA) 4+ (NEGATIVE) 04/08/20 12:28 Urine Ketones 3+ (NEGATIVE) 04/08/20 12:28 Urine Occult Blood 5+ (NEGATIVE) 04/08/20 12:28 Urine Nitrite Negative (NEGATIVE) 04/08/20 12:28 Urine Bilirubin Negative (NEGATIVE) 04/08/20 12:28 Urine Urobilinogen Normal (NORMAL) 04/08/20 12:28 Ur Leukocyte Esterase 3+ (NEGATIVE) 04/08/20 12:28 Urine RBC 10-20 /HPF (0-3) A 04/08/20 12:28 Urine WBC Tntc /HPF (0-5) A 04/08/20 12:28 Ur Squamous Epith Cells Negative /HPF (NEGATIVE) 04/08/20 12:28 Amorphous Sediment 2+ /HPF (NEGATIVE) 04/08/20 12:28 Urine Bacteria 2+ /HPF (NEGATIVE) 04/08/20 12:28 Urine Mucus Few /HPF (NEGATIVE) 04/08/20 12:28 Ur Culture Indicated? Yes/culture set up 04/08/20 12:28 SARS CoV-2 RNA Rapid ALYSE Negative (NEGATIVE) 04/08/20 13:16 - Assessment and Plan 1: s/p PEG feeding tube insertion . on tube feeding now with 4 cans daily with water flush and check residual feeding before the next feeding .. to follow in the NH - Problem Patient Problems: Patient Problems Acute renal failure (ARF) (Acute) N17.9 UTI (urinary tract infection) (Acute) N39.0 Accelerated hypertension (Acute) I10 Diabetes mellitus type II, uncontrolled (Acute) E11.65
[2020-04-20 16:05] VITALS: BP 121/58
--- NOTE | 2020-05-21 23:30 | W.DIS.FURT ---
Discharge Plan - Discharge Plan Hospital Course: Mrs. Vazquez is a 65-year-old white female admitted originally with a urinary tract infection and experienced hypernatremic hyperosmolarity causing diffuse lethargy and altered mental status. The patient was treated with water replacement through her NG tube, as well as Glucerna because she is a diabetic. Patient was found to have pneumonia. Also, IV antibiotics, respiratory therapy, and supplemental oxygen. She did receive potassium replacement. She received a dose of Lasix 40 mg last night with improving audible chest congestion. She is saturating in the mid 90s on 2 L supplemental oxygen. The patient continues to be very weak and lethargic. She was very limited verbal responses. Patient failed Speech Therapy evaluation and Dr. Garcia was consulted for feeding tube placement. Patient was transferred to [facility] for further care. Disposition: [facility] Condition: Stable Assessment: 1. Pneumonia. 2. Hyperosmolar hyperglycemic non-ketoacidosis. 3. Dysphagia s/p PEG placement 4 Chronic respiratory failure with hypoxia, requiring supplemental oxygen therapy 5. Diabetes mellitus. 6. Hypertension. 7. History of CVA. - Orders to Discharge Patient Discharge Orders: Discharge (Routine); Ordered 04/20/20 Ordered By: ROD SWARTZ
== END 2020-04-20 16:55 | DRG 682 ==
LOC: ER 11:23 → MED/SURG 15:41
PROVIDERS: ADMIT Obstetrics & Gynecology Obstetrics; ATTEND Internal Medicine
DX: R13.10 Dysphagia, unspecified; Z66 Do not resuscitate; J44.9 Chronic obstructive pulmonary disease, unspecified; R10.9 Unspecified abdominal pain; I50.9 Heart failure, unspecified; E87.6 Hypokalemia; Z86.73 Personal history of transient ischemic attack (TIA), and cerebral infarction without residual deficits; N17.9 Acute kidney failure, unspecified; I73.9 Peripheral vascular disease, unspecified; J18.9 Pneumonia, unspecified organism; R41.0 Disorientation, unspecified; E13.00 Other specified diabetes mellitus with hyperosmolarity without nonketotic hyperglycemic-hyperosmolar coma (NKHHC); E13.65 Other specified diabetes mellitus with hyperglycemia; Z11.52 Encounter for screening for COVID-19; N39.0 Urinary tract infection, site not specified; E86.0 Dehydration